=== PATIENT | male | born 1975 | race Caucasian/White ===

== ENCOUNTER 2016-09-05 18:47 | Emergency (ER) | payer MEDICAID ==
[2016-09-05] MEDS ORDERED: diphenhydrAMINE INJ 50 MG/ML VIAL IM STA (19:35)
[2016-09-05] MEDS ORDERED: KETOROLAC 60 MG/2 ML VIAL IM STA (19:35)
[2016-09-05] MEDS ORDERED: PROMETHAZINE 25 MG/1 ML VIAL IM STA (19:35)
[2016-09-05] MEDS ORDERED: diphenhydrAMINE INJ 50 MG/ML VIAL ONE (19:49)
[2016-09-05] MEDS ORDERED: KETOROLAC 60 MG/2 ML VIAL ONE (19:49)
[2016-09-05] MEDS ORDERED: PROMETHAZINE 25 MG/1 ML VIAL ONE (19:49)
== END 2016-09-05 21:01 | disposition home or self-care (01) ==
DX: G43.909 Migraine, unspecified, not intractable, without status migrainosus (principal); J45.909 Unspecified asthma, uncomplicated; F17.200 Nicotine dependence, unspecified, uncomplicated

== ENCOUNTER 2016-09-26 11:25 | Outpatient (CLI) | payer MEDICAID | END 2016-09-26 11:26 | disposition home or self-care (01) | DX: R07.0 Pain in throat (principal) ==

== ENCOUNTER 2016-11-22 13:54 | Outpatient (CLI) | payer MEDICAID ==
[2016-11-22 13:17] LABS: BASOPHILS # (AUTO) 0.1 10^3/uL (0.0-0.1); BASOPHILS % (AUTO) 1.5 %; EOSINOPHILS # (AUTO) 0.2 10^3/uL (0.0-0.7); EOSINOPHILS % (AUTO) 4.2 %; HCT - HEMATOCRIT 43.9 % (42.0-52.0); HGB - HEMOGLOBIN 15.2 g/dL (14.0-18.0); LYMPHOCYTES # (AUTO) 1.7 10^3/uL (1.5-3.5); LYMPHOCYTES % (AUTO) 36.1 %; MEAN CORPUSCULAR HGB CONC 34.6 g/dL (32.0-36.0); MEAN CORPUSCULAR VOLUME 98.2 fL (80.0-94.0); MEAN PLATELET VOLUME 7.4 fL (7.4-11.4); MONOCYTES # (AUTO) 0.5 10^3/uL (0.0-1.0); NEUTROPHILS # (AUTO) 2.2 10^3/uL (1.5-6.6); NEUTROPHILS % (AUTO) 48.2 %; RED BLOOD COUNT 4.47 10^6/uL (4.70-6.10); RED CELL DISTRIBUTION WIDTH 13.2 % (12.0-15.0); UNCORRECTED WHITE BLOOD COUNT 4.6 x10^3/uL; WHITE BLOOD COUNT 4.6 x10^3/uL (4.8-10.8)
[2016-11-22 13:37] LABS: ALBUMIN/GLOBULIN RATIO 1.6 (1.0-2.2); BILIRUBIN,TOTAL 0.9 mg/dL (0.2-1.0); BUN - BLOOD UREA NITROGEN 11 mg/dL (6-20); CALCIUM 9.2 mg/dL (8.5-10.3); CARBON DIOXIDE - CO2 29 mmol/L (21-32); CHLORIDE 105 mmol/L (101-111); CHOLESTEROL 224 mg/dL; GFR - MDRD 82 (>89); GLUCOSE 93 mg/dL (70-100); HDL CHOLESTEROL 56 mg/dL; LDL/HDL RATIO 2.6 (<3.6); POTASSIUM 3.9 mmol/L (3.5-5.0); SODIUM 140 mmol/L (135-145); TOTAL PROTEIN 6.9 g/dL (6.7-8.2); TRIGLYCERIDES 117 mg/dL; VLDL CHOLESTEROL 23 mg/dL
== END 2016-11-22 13:55 | disposition home or self-care (01) ==
LOC: LAB.N 13:54
PROVIDERS: ATTEND Family Medicine
DX: Z00.00 Encounter for general adult medical examination without abnormal findings (principal); F17.210 Nicotine dependence, cigarettes, uncomplicated
CPT/HCPCS: 36415; 80053; 80061; 85025

== ENCOUNTER 2016-12-13 12:22 | Emergency (ER) | payer MEDICAID, MEDICARE ==
[2016-12-13] MEDS ORDERED: ACETAMINOPHEN 325 MG TABLET PO STA (12:56)
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
[2016-12-13] MEDS ORDERED: ACETAMINOPHEN 325 MG TABLET PO ONE (13:01)
[2016-12-13] MEDS ORDERED: TETANUS/DIPHTHERIA/PERTUSSIS 0.5 ML SYRINGE IM ONE ×2 (13:20→13:24)
--- NOTE | 2016-12-13 13:33 | XRAY Preliminary Report ---
Exam: XR Ankle 3 View RT IMPRESSION: 1. Normal alignment without fracture or dislocation of the right ankle. 2. Asymmetric soft tissue swelling at the medial aspect of the ankle. [facility] SITE ID: [id number]
--- NOTE | 2016-12-13 13:33 | XRAY Preliminary Report ---
Exam: XR Tib/Fib RT IMPRESSION: Soft tissue swelling about the ankle. Otherwise normal. No underlying bone or joint abnor mality demonstrated. [facility] SITE ID: [id number]
--- NOTE | 2016-12-13 13:36 | XRAY Report ---
EXAM: RIGHT ANKLE RADIOGRAPHY EXAM DATE: 12/13/2016 01:00 PM. CLINICAL HISTORY: Pain and swelling s/p injury. COMPARISON: None. TECHNIQUE: 2 views. FINDINGS: Bones: Normal. No fractures or bone lesions. Joints: Normal. No effusion. No subluxations. The ankle mortise is normally aligned. Soft Tissues: Asymmetric soft tissue swelling seen at the medial aspect of the ankle. IMPRESSION: 1. Normal alignment without fracture or dislocation of the right ankle. 2. Asymmetric soft tissue swelling at the medial aspect of the ankle. [facility] Referring Provider Line: [phone] SITE ID: [id number]
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
[2016-12-13 13:39] VITALS: BP 113/71
== END 2016-12-13 13:39 | disposition home or self-care (01) ==
LOC: ED 12:22
DX: M79.604 Pain in right leg (principal); S97.01XA Crushing injury of right ankle, initial encounter; W22.8XXA Striking against or struck by other objects, initial encounter; Y93.89 Activity, other specified; Y92.009 Unspecified place in unspecified non-institutional (private) residence as the place of occurrence of the external cause; Z23 Encounter for immunization; F17.200 Nicotine dependence, unspecified, uncomplicated
CPT/HCPCS: 73590; 73610; 90471; 90715; 99283; A9270

== ENCOUNTER 2016-12-24 13:17 | Outpatient (CLI) | payer MEDICARE ==
--- NOTE | 2016-12-24 17:50 | XRAY Report ---
THREE-VIEW RIGHT ANKLE: 12/24/2016 HISTORY: Crushing injury. FINDINGS: There is no fracture, focus of destruction, or malalignment. The mortise is preserved. T he talar dome is within normal limits. IMPRESSION: NO ACUTE PROCESS. JOB #: [id number] EXT JOB #:[id number]
--- NOTE | 2016-12-25 07:54 | XRAY Report ---
TWO-VIEW RIGHT TIBIA/FIBULA: 12/24/2016 HISTORY: Pain. COMPARISON: 12/13/2016 FINDINGS: The osseous structures appear intact. There is no fracture, focus of destruction, or barrera lignment. The surrounding soft tissues are within normal limits. The proximal and distal joint spac es are preserved. IMPRESSION: NO ACUTE PROCESS. JOB #: [id number] EXT JOB #:[id number]
== END 2016-12-24 13:18 | disposition home or self-care (01) ==
LOC: DI.N 13:17
PROVIDERS: ATTEND Family Medicine
DX: M79.661 Pain in right lower leg (principal)

== ENCOUNTER 2017-05-13 17:36 | Emergency (ER) | payer MEDICAID, MEDICARE ==
[2017-05-13 18:12] LABS: BASOPHILS # (AUTO) 0.1 10^3/uL (0.0-0.1); BASOPHILS % (AUTO) 2.3 %; EOSINOPHILS # (AUTO) 0.2 10^3/uL (0.0-0.7); EOSINOPHILS % (AUTO) 3.6 %; HGB - HEMOGLOBIN 14.8 g/dL (14.0-18.0); LYMPHOCYTES # (AUTO) 2.1 10^3/uL (1.5-3.5); LYMPHOCYTES % (AUTO) 44.1 %; MEAN CORPUSCULAR HEMOGLOBIN 32.8 pg (27.0-31.0); MEAN CORPUSCULAR HGB CONC 34.4 g/dL (32.0-36.0); MEAN CORPUSCULAR VOLUME 95.4 fL (80.0-94.0); MEAN PLATELET VOLUME 6.9 fL (7.4-11.4); MONOCYTES # (AUTO) 0.5 10^3/uL (0.0-1.0); MONOCYTES % (AUTO) 11.3 %; NEUTROPHILS # (AUTO) 1.8 10^3/uL (1.5-6.6); NEUTROPHILS % (AUTO) 38.7 %; PLT - PLATELET COUNT 235 10^3/uL (130-450); RED CELL DISTRIBUTION WIDTH 13.1 % (12.0-15.0); WHITE BLOOD COUNT 4.7 x10^3/uL (4.8-10.8)
[2017-05-13 18:19] LABS: ALBUMIN 4.6 g/dL (3.2-5.5); ALBUMIN/GLOBULIN RATIO 1.8 (1.0-2.2); BILIRUBIN,TOTAL 0.5 mg/dL (0.2-1.0); CALCIUM 9.2 mg/dL (8.5-10.3); CREATININE 0.8 mg/dL (0.6-1.2); TOTAL PROTEIN 7.2 g/dL (6.7-8.2)
--- NOTE | 2017-05-13 18:36 | XRAY Report ---
EXAM: CHEST RADIOGRAPHY EXAM DATE: 05/13/2017 06:24 PM. CLINICAL HISTORY: Dyspnea, back pain. COMPARISON: None. TECHNIQUE: 2 views. FINDINGS: Lungs/Pleura: No focal opacities evident. No pleural effusion. No pneumothorax. Normal volumes. Mediastinum: Heart and mediastinal contours are unremarkable. Other: None. IMPRESSION: No acute intrathoracic plain film abnormality. [facility] Referring Provider Line: [phone] SITE ID: [id number]
[2017-05-13] MEDS ORDERED: LIDOCAINE VISCOUS 2% 15 ML UDC MM STA (18:49)
[2017-05-13] MEDS ORDERED: SUCRALFATE 1 GM/10 ML UDC PO STA (18:49)
[2017-05-13] MEDS ORDERED: MAG HYDROX/AL HYDROX/SIMETH 30 ML UDC PO STA (18:49)
--- NOTE | 2017-05-13 18:57 | ED Physician Documentation ---
History of Present Illness - Stated complaint Stated Complaint: SOA/BACK PAIN - Chief complaint Chief Complaint: Resp - History obtained from History obtained from: Patient - History of Present Illness Timing: How many days ago (3) Pain level max: 8 Pain level now: 8 Improved by: nothing Worsened by: moving - Additonal information Additional information: states epigastric, back pain for the past few days. No fevers. taking probiotics at home. had diarrhea recently, now resolved. Review of Systems Constitutional: denies: Fever, Chills Ears: denies: Ear pain Nose: denies: Rhinorrhea / runny nose, Congestion Throat: denies: Sore throat Cardiac: denies: Chest pain / pressure Respiratory: denies: Cough Skin: denies: Rash Musculoskeletal: denies: Neck pain, Back pain Neurologic: denies: Headache PD PAST MEDICAL HISTORY - Past Medical History Cardiovascular: None Respiratory: Asthma, Emphysema Neuro: None, Headache/migraine Endocrine/Autoimmune: None GI: None : None HEENT: None Psych: Depression, Post traumatic stress disorder Musculoskeletal: None Derm: None - Past Surgical History Past Surgical History: Yes - Present Medications Home Medications: Ambulatory Orders Medication Instructions Recorded Confirmed Divalproex Dr [Depakote Dr] 125 mg PO BID 12/13/16 12/13/16 Cyclobenzaprine [Flexeril] 10 mg PO TID PRN #20 tablet 05/13/17 - Allergies Allergies/Adverse Reactions: Allergies Allergy/AdvReac Type Severity Reaction Status Date / Time amoxicillin [Amoxicillin] Allergy Intermediate Rash Verified 05/13/17 17:38 codeine [Codeine] Allergy Intermediate Rash Verified 05/13/17 17:38 Penicillins Allergy Intermediate Rash Verified 05/13/17 17:38 indomethacin AdvReac Unknown Emesis Verified 05/13/17 17:38 gabapentin AdvReac loss of Verified 05/13/17 17:38 bladder control, numbness, tingling in hands and fee - Social History Does the pt smoke?: Yes Smoking Status: Current every day smoker Does the pt drink ETOH?: No Does the pt have substance abuse?: Yes - Immunizations Immunizations are current?: Yes - POLST Patient has POLST: No PD ED PE NORMAL - Vitals Vital signs reviewed: Yes - General General: Alert and oriented X 3, No acute distress, Well developed/nourished - HEENT HEENT: PERRL, Moist mucous membranes - Neck Neck: Supple, no meningeal sign - Cardiac Cardiac: RRR, Strong equal pulses - Respiratory Respiratory: No respiratory distress, Clear bilaterally - Abdomen Abdomen: Soft, Non distended, Other (Tender to palpation epigastric, left upper quadrant and right upper quadrant. Equivocal Florentino sign.) - Back Back: No CVA TTP, No spinal TTP, Other (Paraspinal muscle spasm present left low lumbar) - Derm Derm: Warm and dry - Extremities Extremities: No calf tenderness / cord - Neuro Neuro: Alert and oriented X 3 - Psych Psych: Normal mood, Normal affect Results - Vitals Vitals: Vital Signs - 24 hr 05/13/17 05/13/17 05/13/17 17:39 19:05 19:26 Temperature 36.4 C L Heart Rate 97 74 76 Respiratory 18 27 H 13 Rate Blood Pressure 165/91 H 135/96 H 135/96 H O2 Saturation 100 100 100 05/13/17 05/13/17 05/13/17 20:42 21:15 22:05 Temperature Heart Rate 66 61 52 L Respiratory 19 12 12 Rate Blood Pressure 131/89 H 136/94 H 136/88 H O2 Saturation 99 98 99 Oxygen O2 Source Room air - EKG (time done) 1749 Rate: Rate (enter#) (85) Rhythm: NSR [place]: Normal Intervals: Normal NE QRS: Normal Ischemia: Normal ST segments - Labs Labs: Laboratory Tests 05/13/17 05/13/17 05/13/17 17:54 17:54 17:54 WBC 4.7 L RBC 4.50 L Hgb 14.8 Hct 42.9 MCV 95.4 H MCH 32.8 H MCHC 34.4 RDW 13.1 Plt Count 235 MPV 6.9 L Neut # 1.8 Lymph # 2.1 Storey # 0.5 Eos # 0.2 Baso # 0.1 Absolute Nucleated RBC 0.00 Nucleated RBC % 0.0 D-Dimer < 200.0 L Sodium 141 Potassium 3.6 Chloride 102 Carbon Dioxide 31 Anion Gap 8.0 BUN 7 Creatinine 0.8 Estimated GFR (MDRD) 106 Glucose 87 Calcium 9.2 Total Bilirubin 0.5 AST 18 ALT 19 Alkaline Phosphatase 47 Total Protein 7.2 Albumin 4.6 Globulin 2.6 Albumin/Globulin Ratio 1.8 Lipase 27 - Rads (name of study) Right upper quadrant ultrasound Radiology: Prelim report reviewed, EMP read contemporaneously, See rad report ( Mild fatty liver) cxr Radiology: Prelim report reviewed, EMP read contemporaneously, See rad report ( No acute disease) PD MEDICAL DECISION MAKING - ED course Complexity details: reviewed results, re-evaluated patient, considered differential, d/w patient ED course: Patient is a 42-year-old male who presents to the emergency department with epigastric and back pain. No change in GI cocktail. No acute findings on right upper quadrant ultrasound. No acute laboratory test abnormalities. No acute chest x-ray abnormalities. No acute EKG abnormalities. Feels better after Toradol, possible muscular pain? Will have him follow-up with his PCP for further evaluation and care. Tolerating p.o. without difficulty here. Ambulating without difficulty. No pneumothorax. No aortic dissection. No PE. No acute coronary syndrome. Patient counseled regarding signs and symptoms for which I believe and urgent re-evaluation would be necessary. Patient with good understanding of and agreement to plan and is comfortable going home at this time This document was made in part using voice recognition software. While efforts are made to proofread this document, sound alike and grammatical errors may occur. Departure - Departure Disposition: 01 Home, Self Care Clinical Impression: Abdominal pain Qualifiers: Abdominal location: generalized Qualified Code(s): R10.84 - Generalized abdominal pain Back strain Qualifiers: Encounter type: initial encounter Qualified Code(s): S39.012A - Strain of muscle, fascia and tendon of lower back, initial encounter Condition: Good Instructions: ED Abdominal Pain Unkn Cause, ED Low Back Pain Injury Follow-Up: Teo Ley MD [Primary Care Provider] - Within 1 week Prescriptions: Cyclobenzaprine [Flexeril] 10 mg PO TID PRN #20 tablet PRN Reason: Spasms Comments: Return if you worsen. This should improve over the next few days. The cause of your symptoms is unclear tonight. Discharge Date/Time: 05/13/17 22:08
[2017-05-13] MEDS: PHENobarb/HYOSCY/ATROPINE/SCOP 5 ML SYRINGE PO STA ×2 (19:07)
--- NOTE | 2017-05-13 20:39 | Ultrasound Report ---
EXAM: ABDOMEN ULTRASOUND LIMITED, RUQ EXAM DATE: 05/13/2017 08:10 PM. CLINICAL HISTORY: RUQ pain. COMPARISON: None. TECHNIQUE: Real-time scanning was performed with static images obtained. FINDINGS: Liver: Mildly echogenic parenchyma. No masses. Normal overall size, 14.4 cm. Main portal vein flow: H epatopetal. Gallbladder: Normal. No stones, wall thickening, or sonographic Florentino's sign. Biliary System: CBD measures 6 mm. No intrahepatic or extrahepatic ductal dilatation. Other: Unremarkable visualized portions of liver and pancreas. IMPRESSION: Mild fatty liver. [facility] Referring Provider Line: [phone] SITE ID: [id number]
[2017-05-13] MEDS ORDERED: KETOROLAC 60 MG/2 ML VIAL IVP STA (20:47)
[2017-05-13 22:08] VITALS: BP 136/88
== END 2017-05-13 22:08 | disposition home or self-care (01) ==
LOC: ED 17:36
DX: R10.84 Generalized abdominal pain (principal); S39.012A Strain of muscle, fascia and tendon of lower back, initial encounter; X58.XXXA Exposure to other specified factors, initial encounter; F17.200 Nicotine dependence, unspecified, uncomplicated
CPT/HCPCS: 36415; 71046; 76705; 80053; 83690; 85025; 85379; 93005; 96374; 99284; A9270

== ENCOUNTER 2017-06-11 09:39 | Emergency (ER) | payer MEDICARE ==
[2017-06-11 09:46] VITALS: BP 137/84
--- NOTE | 2017-06-11 10:20 | ED Physician Documentation ---
PD HPI HEENT - Stated complaint Stated Complaint: TOOTH PX - Chief complaint Chief Complaint: Heent - History obtained from History obtained from: Patient, Family - History of Present Illness Timing - onset: How many days ago (4) Timing - duration: Days (4) Timing - details: Gradual onset, Still present Location: Tooth Improves: Medication Worsens: Everything Associated symptoms: Facial swelling, Headache Similar symptoms before: Has not had sx before Recently seen: Not recently seen - Additional information Additional information: 42-year-old male has developed some pain in the right upper tooth and the pain has become localized and the tooth is extremely sensitive to. He does have some swelling in his gums on that side and pain that radiates around his jaw and into his right ear. He has an appointment to see his dentist in 3 weeks. He is allergic to penicillin and amoxicillin. Review of Systems Constitutional: denies: Fever Eyes: denies: Decreased vision Ears: reports: Ear pain Nose: reports: Congestion Throat: reports: Dental pain / toothache Respiratory: reports: Cough GI: denies: Nausea, Vomiting : denies: Dysuria PD PAST MEDICAL HISTORY - Past Medical History Past Medical History: Yes Cardiovascular: None Respiratory: Asthma, Emphysema Neuro: None, Headache/migraine Endocrine/Autoimmune: None GI: None : None HEENT: None Psych: Depression, Post traumatic stress disorder Musculoskeletal: None Derm: None - Past Surgical History Past Surgical History: Yes - Present Medications Home Medications: Ambulatory Orders Medication Instructions Recorded Confirmed Divalproran St [Abdulaziz St] 125 mg PO BID 12/13/16 12/13/16 Cyclobenzaprine [Flexeril] 10 mg PO TID PRN #20 tablet 05/13/17 Clindamycin HCl [Clindamycin 150MG 150 mg PO QID #28 capsule 06/11/17 CAP] oxyCODONE/ACET 5/325 [Percocet 5 1 each PO Q4-6H PRN #12 tablet 06/11/17 mg/325 mg] - Allergies Allergies/Adverse Reactions: Allergies Allergy/AdvReac Type Severity Reaction Status Date / Time amoxicillin [Amoxicillin] Allergy Intermediate Rash Verified 06/11/17 09:46 codeine [Codeine] Allergy Intermediate Rash Verified 06/11/17 09:46 Penicillins Allergy Intermediate Rash Verified 06/11/17 09:46 indomethacin AdvReac Unknown Emesis Verified 06/11/17 09:46 gabapentin AdvReac loss of Verified 06/11/17 09:46 bladder control, numbness, tingling in hands and fee - Social History Does the pt smoke?: Yes Smoking Status: Current every day smoker Does the pt drink ETOH?: No Does the pt have substance abuse?: Yes - Immunizations Immunizations are current?: Yes - POLST Patient has POLST: No PD ED PE NORMAL - Vitals Vital signs reviewed: Yes (hypertensive ) - General General: Alert and oriented X 3, Well developed/nourished, Other (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 There is swelling to the gums over both of these teeth. The tooth itself does not appear cracked or decayed ) - Neck Neck: Supple, no meningeal sign, No bony TTP - Respiratory Respiratory: No respiratory distress - Derm Derm: Normal color, Warm and dry, No rash - Extremities Extremities: No deformity, No edema - Neuro Neuro: No motor deficit, No sensory deficit Eye Opening: Spontaneous Motor: Obeys Commands Verbal: Oriented GCS Score: 15 - Psych Psych: Normal mood, Normal affect PD ED PE EXPANDED - HEENT HEENT Visual: 1 - swelling, tenderness Results - Vitals Vitals: Vital Signs - 24 hr 06/11/17 09:41 Temperature 36.0 C L Heart Rate 100 Respiratory 18 Rate Blood Pressure 137/84 H O2 Saturation 99 Oxygen O2 Source Room air PD MEDICAL DECISION MAKING - ED course Complexity details: considered differential, d/w patient ED course: 42-year-old male with a dental abscess and dental pain. We will place him on some clindamycin and a short course of some pain medication. Departure - Departure Disposition: 01 Home, Self Care Clinical Impression: Dental abscess Condition: Stable Instructions: ED Abscess Dental Follow-Up: Teo Ley MD [Primary Care Provider] - Prescriptions: Clindamycin HCl [Clindamycin 150MG CAP] 150 mg PO QID #28 capsule oxyCODONE/ACET 5/325 [Percocet 5 mg/325 mg] 1 each PO Q4-6H PRN #12 tablet PRN Reason: Pain
== END 2017-06-11 10:27 | disposition home or self-care (01) ==
LOC: ED 09:39
DX: K04.7 Periapical abscess without sinus (principal); F17.200 Nicotine dependence, unspecified, uncomplicated; Z88.0 Allergy status to penicillin
CPT/HCPCS: 99283

== ENCOUNTER 2017-06-11 22:06 | Emergency (ER) | payer MEDICARE ==
--- NOTE | 2017-06-11 22:16 | ED Physician Documentation ---
PD HPI HEENT - Stated complaint Stated Complaint: MOUTH PX - Chief complaint Chief Complaint: Heent - History obtained from History obtained from: Patient - History of Present Illness Timing - onset: How many days ago (few) Timing - duration: Days Timing - details: Gradual onset, Still present Location: Tooth (right upper dental infection and pain, seen earlier in the ED and Rx CLinda and Percocet. He got Rx filled and got first dose about 4 pm. He is having increased pain and swelling this evening. Not much relief with one percocet. Concerned about the increased swelling and pain on right face as well. ) Improves: No: Medication Associated symptoms: Facial swelling. No: Fever Similar symptoms before: Has not had sx before Recently seen: Emergency Dept Review of Systems Constitutional: denies: Fever, Chills Throat: reports: Dental pain / toothache. denies: Sore throat, Swollen tonsils PD PAST MEDICAL HISTORY - Past Medical History Cardiovascular: None Respiratory: Asthma, Emphysema Neuro: None, Headache/migraine Endocrine/Autoimmune: None GI: None : None HEENT: None Psych: Depression, Post traumatic stress disorder Musculoskeletal: None Derm: None - Past Surgical History Past Surgical History: Yes - Present Medications Home Medications: Ambulatory Orders Medication Instructions Recorded Confirmed Divalproex Dr [Abdulaziz Dr] 125 mg PO BID 12/13/16 12/13/16 Cyclobenzaprine [Flexeril] 10 mg PO TID PRN #20 tablet 05/13/17 Clindamycin HCl [Clindamycin 150MG 150 mg PO QID #28 capsule 06/11/17 CAP] oxyCODONE/ACET 5/325 [Percocet 5 1 each PO Q4-6H PRN #12 tablet 06/11/17 mg/325 mg] - Allergies Allergies/Adverse Reactions: Allergies Allergy/AdvReac Type Severity Reaction Status Date / Time amoxicillin [Amoxicillin] Allergy Intermediate Rash Verified 06/11/17 22:12 codeine [Codeine] Allergy Intermediate Rash Verified 06/11/17 22:12 Penicillins Allergy Intermediate Rash Verified 06/11/17 22:12 indomethacin AdvReac Unknown Emesis Verified 06/11/17 22:12 gabapentin AdvReac loss of Verified 06/11/17 22:12 bladder control, numbness, tingling in hands and fee - Social History Does the pt smoke?: Yes Smoking Status: Current every day smoker Does the pt drink ETOH?: No Does the pt have substance abuse?: Yes - Immunizations Immunizations are current?: Yes - POLST Patient has POLST: No PD ED PE NORMAL - Vitals Vital signs reviewed: Yes - General General: Alert and oriented X 3, Well developed/nourished, Other (appears in pain) - HEENT HEENT: Ears normal, Pharynx benign. No: Dentition benign (multiple caries. Right upper tooth 4 with swelling of gum on buccal side. No drainage. There is some facial swelling right maxilla without feeling of abscess. ) - Neck Neck: Supple, no meningeal sign, Other (mild right anterior adenopathy. ) - Cardiac Cardiac: RRR, No murmur - Respiratory Respiratory: Clear bilaterally Results - Vitals Vitals: Vital Signs - 24 hr 06/11/17 22:09 Temperature 36.1 C L Heart Rate 95 Respiratory 15 Rate Blood Pressure 193/101 H O2 Saturation 100 Oxygen O2 Source Room air Procedures - Regional nerve block Nerve block site: Infraorbital Right / left: Right Nerve block anesthesia: Lidocaine 2%, Marcaine 0.5% Nerve block aftercare: Moderate Anesthesia PD MEDICAL DECISION MAKING - ED course Complexity details: re-evaluated patient (He is feeling improved after dental block, with still some pain on face and anterior neck (adenopathy and swelling outside range of the infraorbital nerve). The gum abscess lanced with some outflow of pus. ), considered differential, d/w patient Departure - Departure Disposition: 01 Home, Self Care Clinical Impression: Dental abscess, Pain, dental Condition: Stable Record reviewed to determine appropriate education?: Yes Instructions: ED Abscess Dental Comments: Continue current prescriptions. The dental block should last overnight into tomorrow. Hopefully will be feeling better with more time on the antibiotic and with the drainage coming from lancing the abscess. Recheck if still not improving well over the next couple of days. Follow-up with dentist at their earliest appointment. He could try calling them again to see if they have something sooner. At least one of your blood pressure readings in the ER today was elevated above the normal level. If you have diagnosed high blood pressure in the past, please be sure you are taking your BP medications and eating low salt diet. If you do not have know high BP, then being high today does not mean it is a snf issue. It might be reactively high to the situation that has you here. You should follow up with your primary care to have the blood pressure checked again in the next few days/week or so to see if it is persistently high. If so, then you may need medication or changes in diet/lifestyle to treat it.
[2017-06-11] MEDS ORDERED: oxyCOD/ACETAMIN 5 MG/325 MG TABLET PO STA (22:28)
[2017-06-11 23:02] VITALS: BP 122/86
== END 2017-06-11 23:03 | disposition home or self-care (01) ==
LOC: ED 22:06
DX: K04.7 Periapical abscess without sinus (principal); R03.0 Elevated blood-pressure reading, without diagnosis of hypertension; F17.200 Nicotine dependence, unspecified, uncomplicated
CPT/HCPCS: 64400; 99283; A9270; 41800

== ENCOUNTER 2018-03-05 12:48 | Emergency (ER) | payer MEDICAID, MEDICARE ==
[2018-03-05] MEDS ORDERED: IPRATROPIUM/ALBUTEROL 3 ML NEB INH STA (13:34)
[2018-03-05] MEDS ORDERED: predniSONE 20 MG TABLET PO STA (13:34)
[2018-03-05 13:40] LABS: BASOPHILS % (AUTO) 0.6 %; EOSINOPHILS # (AUTO) 0.2 10^3/uL (0.0-0.7); EOSINOPHILS % (AUTO) 3.3 %; HGB - HEMOGLOBIN 17.8 g/dL (14.0-18.0); LYMPHOCYTES # (AUTO) 2.3 10^3/uL (1.5-3.5); MEAN CORPUSCULAR HEMOGLOBIN 34.3 pg (27.0-31.0); MEAN CORPUSCULAR HGB CONC 34.9 g/dL (32.0-36.0); MEAN CORPUSCULAR VOLUME 98.4 fL (80.0-94.0); MONOCYTES # (AUTO) 0.7 10^3/uL (0.0-1.0); MONOCYTES % (AUTO) 11.1 %; NEUTROPHILS # (AUTO) 3.2 10^3/uL (1.5-6.6); PLT - PLATELET COUNT 274 10^3/uL (130-450); RED CELL DISTRIBUTION WIDTH 13.4 % (12.0-15.0); WHITE BLOOD COUNT 6.5 x10^3/uL (4.8-10.8)
--- NOTE | 2018-03-05 13:52 | ED Physician Documentation ---
PD HPI CHEST PAIN - Stated complaint Stated Complaint: SOA/CHEST PX - Chief complaint Chief Complaint: Cardiac - History obtained from History obtained from: Patient - History of Present Illness Timing - onset: How many weeks ago (several) Timing - onset during: Rest Timing - duration: Weeks Timing - details: Gradual onset Pain level max: 4 Pain level now: 3 Quality: Tightness Location: Left chest Radiation: Other (Nonradiating) Improved by: Rest Worsened by: Exertion Associated symptoms: Shortness of air, Feeling faint / dizzy. No: Diaphoresis, Nausea, Vomiting, General Weakness, Palpitations - Additional information Additional information: Patient is a 43-year-old male who presents to the emergency department with chest tightness for the past several weeks. States he is to use inhalers but does not for the past year or so. He does smoke approximately 1/2-3/4 of a pack per day. No recent travel, surgery. No leg swelling. No recent illnesses. Does have a cough, but this is chronic and unchanged. Review of Systems Constitutional: denies: Fever, Chills Cardiac: denies: Chest pain / pressure Respiratory: denies: Cough GI: denies: Nausea, Vomiting, Diarrhea Skin: denies: Rash Musculoskeletal: denies: Neck pain, Back pain Neurologic: denies: Focal weakness, Numbness, Headache PD PAST MEDICAL HISTORY - Past Medical History Past Medical History: Yes Cardiovascular: None Respiratory: Asthma, Pneumonia Neuro: Migraines Endocrine/Autoimmune: None GI: GERD, Ulcers, Other : None HEENT: None Psych: Depression, Post traumatic stress disorder Musculoskeletal: Fibromyalgia Derm: None Other Past Medical History: ibs - Past Surgical History Past Surgical History: Yes - Present Medications Home Medications: Ambulatory Orders Medication Instructions Recorded Confirmed Divalproex [Abd[address] St] 125 mg PO BID 12/13/16 12/13/16 Cyclobenzaprine [Flexeril] 10 mg PO TID PRN #20 tablet 05/13/17 Clindamycin HCl [Clindamycin 150MG 150 mg PO QID #28 capsule 06/11/17 CAP] oxyCODONE/ACET 5/325 [Percocet 5 1 each PO Q4-6H PRN #12 tablet 06/11/17 mg/325 mg] Albuterol Sulf [Ventolin Hfa 1 - 2 puffs INH Q4HR PRN #1 inhaler 03/05/18 Inhaler] predniSONE [Deltasone] 10 mg PO [id number] #42 tab 03/05/18 - Allergies Allergies/Adverse Reactions: Allergies Allergy/AdvReac Type Severity Reaction Status Date / Time amoxicillin [Amoxicillin] Allergy Intermediate Rash Verified 06/11/17 22:12 codeine [Codeine] Allergy Intermediate Rash Verified 06/11/17 22:12 Penicillins Allergy Intermediate Rash Verified 06/11/17 22:12 indomethacin AdvReac Unknown Emesis Verified 06/11/17 22:12 gabapentin AdvReac loss of Verified 06/11/17 22:12 bladder control, numbness, tingling in hands and fee - Social History Does the pt smoke?: Yes Smoking Status: Current every day smoker Does the pt drink ETOH?: Yes ETOH Use: Beer Does the pt have substance abuse?: Yes Substance Use and Type: Marijuana - Immunizations Immunizations are current?: Yes - POLST Patient has POLST: No PD ED PE NORMAL - Vitals Vital signs reviewed: Yes - General General: Alert and oriented X 3, No acute distress, Well developed/nourished - HEENT HEENT: PERRL, Moist mucous membranes - Neck Neck: Supple, no meningeal sign - Cardiac Cardiac: RRR, Strong equal pulses - Respiratory Respiratory: No respiratory distress, Other (decreased breath sounds B) - Abdomen Abdomen: Soft, Non tender, Non distended - Derm Derm: Warm and dry - Extremities Extremities: No edema, No calf tenderness / cord - Neuro Neuro: Alert and oriented X 3 - Psych Psych: Normal mood, Normal affect Results - Vitals Vitals: Vital Signs - 24 hr 03/05/18 03/05/18 03/05/18 13:04 13:54 14:28 Temperature 36.6 C Heart Rate 88 82 82 Respiratory 18 12 12 Rate Blood Pressure 126/91 H 134/89 H O2 Saturation 99 98 03/05/18 14:32 Temperature Heart Rate 94 Respiratory 16 Rate Blood Pressure 140/89 H O2 Saturation 99 Oxygen O2 Source Room air - EKG (time done) 1257 Rate: Rate (enter#) (100) Rhythm: Sinus tachycardia [place]: Normal Intervals: Normal [place] QRS: Normal Ischemia: ST elevation c/w repol - Labs Labs: Laboratory Tests 03/05/18 03/05/18 03/05/18 13:28 13:28 13:28 WBC 6.5 RBC 5.20 Hgb 17.8 Hct 51.2 MCV 98.4 H MCH 34.3 H MCHC 34.9 RDW 13.4 Plt Count 274 MPV 7.0 L Neut # (Auto) 3.2 Lymph # (Auto) 2.3 [place] # (Auto) 0.7 Eos # (Auto) 0.2 Baso # (Auto) 0.0 Absolute Nucleated RBC 0.01 Nucleated RBC % 0.1 Sodium 139 Potassium 4.2 Chloride 101 Carbon Dioxide 27 Anion Gap 11.0 BUN 12 Creatinine 0.9 Estimated GFR (MDRD) 92 Glucose 83 Calcium 9.7 Total Bilirubin 0.9 AST 54 H ALT 89 H Alkaline Phosphatase 61 Troponin I < 0.04 Total Protein 8.3 H Albumin 4.9 Globulin 3.4 Albumin/Globulin Ratio 1.4 Lipase 32 - Rads (name of study) cxr Radiology: Prelim report reviewed, EMP read contemporaneously, See rad report (No acute abnormality) PD MEDICAL DECISION MAKING - ED course Complexity details: reviewed results, re-evaluated patient, considered diffe rential (No ST elevation [place], no aortic dissection, no PE, no tension pneumothorax, no aortic aneurysm), d/w patient ED course: Patient is a 43-year-old male who presents to the emergency department what appears to be a COPD flare. He is well-appearing, nontoxic. Afebrile. No evidence of pulmonary embolus. Feels much better after steroids and nebulizer treatment. Will prescribe an inhaler for home and follow-up closely with his doctor. Patient counseled regarding signs and symptoms for which I believe and urgent re-evaluation would be necessary. Patient with good understanding of and agreement to plan and is comfortable going home at this time This document was made in part using voice recognition software. While efforts are made to proofread this document, sound alike and grammatical errors may occur. Departure - Departure Disposition: 01 Home, Self Care Clinical Impression: COPD (chronic obstructive pulmonary disease) Qualifiers: COPD type: COPD with acute exacerbation Qualified Code(s): J44.1 - Chronic obs tructive pulmonary disease with (acute) exacerbation Condition: Good Instructions: ED COPD Flare Follow-Up: your,doctor in 1 week [Other] Prescriptions: Albuterol Sulf [Ventolin Hfa Inhaler] 1 - 2 puffs INH Q4HR PRN #1 inhaler PRN Reason: Shortness Of Air/Wheezing predniSONE [Deltasone] 10 mg PO [id number] #42 tab Comments: Use the inhaler as prescribed. This should improve as your lungs continue to improve. Return if you worsen. Your heart tests are normal today. You should try to quit smoking. Discharge Date/Time: 03/05/18 14:38
[2018-03-05 13:55] LABS: ALBUMIN 4.9 g/dL (3.2-5.5); ALBUMIN/GLOBULIN RATIO 1.4 (1.0-2.2); BILIRUBIN,TOTAL 0.9 mg/dL (0.2-1.0); CALCIUM 9.7 mg/dL (8.5-10.3); CREATININE 0.9 mg/dL (0.6-1.2); TOTAL PROTEIN 8.3 g/dL (6.7-8.2)
--- NOTE | 2018-03-05 13:59 | XRAY Report ---
Reason: Chest Pain Procedure Date: 03/05/2018 Accession Number: [id number] / [id number] Procedure: XR - Chest 1 View X-Ray CPT Code: 54478 FULL RESULT: EXAM: CHEST RADIOGRAPHY EXAM DATE: 03/05/2018 01:53 PM. CLINICAL HISTORY: Chest Pain. COMPARISON: 05/13/2017. TECHNIQUE: 1 view. FINDINGS: Lungs/Pleura: No focal opacities evident. No pleural effusion. No pneumothorax. Mediastinum: Within exam limitations, the cardiomediastinal contour is normal. Other: No acute findings compared with prior IMPRESSION: Clear lungs. No acute findings. RADIA
[2018-03-05 14:33] VITALS: BP 140/89
== END 2018-03-05 14:38 | disposition home or self-care (01) ==
LOC: ED 12:48
DX: J44.1 Chronic obstructive pulmonary disease with (acute) exacerbation (principal); R00.0 Tachycardia, unspecified; M79.7 Fibromyalgia; F17.200 Nicotine dependence, unspecified, uncomplicated
CPT/HCPCS: 36415; 71045; 80053; 83690; 84484; 85025; 93005; 94640; 99283; 99284; J7512

== ENCOUNTER 2018-07-16 12:40 | Emergency (ER) | payer MEDICAID, MEDICARE ==
[2018-07-16 12:50] VITALS: BP 127/83
[2018-07-16] MEDS ORDERED: oxyCODONE 5 MG TABLET PO STA (13:54)
[2018-07-16] MEDS ORDERED: CYCLOBENZAPRINE 10 MG TABLET PO STA (13:54)
--- NOTE | 2018-07-16 14:00 | ED Physician Documentation ---
PD HPI BACK PAIN - Stated complaint Stated Complaint: BACK PX - Chief complaint Chief Complaint: Back Pain - History obtained from History obtained from: Patient - History of Present Illness Timing - onset: Other (This is a 43-year-old gentleman with fibromyalgia, sciatica and chronic pain. He is not currently in pain management. 2 weeks ago he was coughing a lot and developed pain and spasm between the shoulder blades radiating down to the lumbar spine. There is no new weakness, numbness, tingling, saddle anesthesia, fevers, but it does hurt to have a bowel movement from the straining. Pain is worse with bending and twisting. He is tried aspirin and heat without relief.) Review of Systems Constitutional: denies: Fever, Chills Cardiac: denies: Chest pain / pressure, Palpitations Respiratory: reports: Cough (intermittent). denies: Dyspnea GI: denies: Abdominal Pain PD PAST MEDICAL HISTORY - Past Medical History Cardiovascular: None Respiratory: Asthma, Pneumonia Neuro: Migraines Endocrine/Autoimmune: None GI: GERD, Ulcers, Other : None HEENT: None Psych: Depression, Post traumatic stress disorder Musculoskeletal: Fibromyalgia Derm: None - Past Surgical History Past Surgical History: Yes - Present Medications Home Medications: Ambulatory Orders Medication Instructions Recorded Confirmed Cyclobenzaprine [Flexeril] 10 mg PO TID PRN #20 tablet 07/16/18 Oxycodone HCl/Acetaminophen 1 - 2 each PO Q6H PRN #14 tablet 07/16/18 [Percocet 5-325 mg Tablet] - Allergies Allergies/Adverse Reactions: Allergies Allergy/AdvReac Type Severity Reaction Status Date / Time amoxicillin [Amoxicillin] Allergy Intermediate Rash Verified 07/16/18 12:50 codeine [Codeine] Allergy Intermediate Rash Verified 07/16/18 12:50 Penicillins Allergy Intermediate Rash Verified 07/16/18 12:50 indomethacin AdvReac Unknown Emesis Verified 07/16/18 12:50 gabapentin AdvReac loss of Verified 07/16/18 12:50 bladder control, numbness, tingling in hands and fee - Social History Does the pt smoke?: Yes Smoking Status: Current every day smoker Does the pt drink ETOH?: Yes Does the pt have substance abuse?: Yes - Immunizations Immunizations are current?: Yes - POLST Patient has POLST: No PD ED PE NORMAL - Vitals Vital signs reviewed: Yes - General General: Alert and oriented X 3, No acute distress - Neck Neck: Supple, no meningeal sign, No bony TTP - Cardiac Cardiac: RRR, No murmur - Respiratory Respiratory: No respiratory distress, Clear bilaterally - Abdomen Abdomen: Normal bowel sounds, Soft, Non tender - Back Back: No spinal TTP, Other (Diffuse TTP parathoracic muscles) - Derm Derm: Normal color, Warm and dry - Extremities Extremities: No edema, No calf tenderness / cord, Other (The patient has equal and normal Achilles and patellar reflexes bilaterally. Normal sensation in all areas of the legs. Patient denies saddle anesthesia. Normal strength in flexion-extension at the ankles, knees, and flexion of the hips.) - Neuro Neuro: Alert and oriented X 3, Normal speech - Psych Psych: Normal mood, Normal affect Results - Vitals Vitals: Vital Signs - 24 hr 07/16/18 12:49 Temperature 36.8 C Heart Rate 111 H Respiratory 18 Rate Blood Pressure 127/83 H O2 Saturation 100 Oxygen O2 Source Room air PD MEDICAL DECISION MAKING - ED course ED course: This patient has seemingly uncomplicated musculoskeletal back pain. The patient has no "red flags." Specifically denies IV drug use, fevers, incontinence, saddle anesthesia. Spinal epidural abscess was considered, given that the patient has no fever, is not diabetic, has no spinal tenderness, does not use IV drugs, and has no bilateral neurologic symptoms, the diagnosis of spinal epidural abscess is considered exceedingly unlikely. Departure - Departure Disposition: 01 Home, Self Care Clinical Impression: Back strain Qualifiers: Encounter type: initial encounter Qualified Code(s): S39.012A - Strain of muscle, fascia and tendon of lower back, initial encounter Condition: Good Record reviewed to determine appropriate education?: Yes Instructions: ED Spasm Back No Trauma Prescriptions: Cyclobenzaprine [Flexeril] 10 mg PO TID PRN #20 tablet PRN Reason: Spasms Oxycodone HCl/Acetaminophen [Percocet 5-325 mg Tablet] 1 - 2 each PO Q6H PRN #14 tablet PRN Reason: pain Comments: Call your doctor to arrange a follow-up appointment, make the next available appointment. In the interim, return anytime if worse or if new symptoms devel op.
== END 2018-07-16 14:05 | disposition home or self-care (01) ==
LOC: ED 12:40
DX: S39.012A Strain of muscle, fascia and tendon of lower back, initial encounter (principal); F17.200 Nicotine dependence, unspecified, uncomplicated
CPT/HCPCS: 99282; 99283; A9270

== ENCOUNTER 2019-05-20 20:16 | Emergency (ER) | payer MEDICARE ==
--- NOTE | 2019-05-20 20:26 | ED Physician Documentation ---
PD HPI DYSPNEA - Stated complaint Stated Complaint: SOA - History obtained from History obtained from: Patient - History of Present Illness Timing - onset: Enter time (19:00), Today Timing - onset during: Rest Timing - details: Abrupt onset Pain level now: 9 Improved by: Rest Worsened by: Exertion, Other (movement) Associated symptoms: Chest pain / discomfort. No: Fever, Cough, Wheezing, Bilateral edema, Unilateral edema Recently seen: Not recently seen - Additional information Additional information: mutiple c/o. c/o dyspnea and left-sided chest pain. Dyspnea x 7 PM tonight while at rest playing cards. Also c/o low back pain, predominantly left-sided, radiating down both legs. Also c/o paresthesias of both feet, fingers of both hands, and around mouth. 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 He has not established with a new PMD as of yet. Review of Systems Constitutional: reports: Myalgias. denies: Fever, Chills, Sweats Cardiac: reports: Chest pain / pressure. denies: Palpitations, Pedal edema, Calf pain Respiratory: reports: Dyspnea. denies: Cough, Hemoptysis, Wheezing GI: reports: Reviewed and negative : denies: Dysuria, Frequency Skin: denies: Rash Musculoskeletal: reports: Back pain. denies: Neck pain Neurologic: reports: Numbness (paresthesias both hands, feet, around mouth). denies: Generalized weakness, Focal weakness, Headache PD PAST MEDICAL HISTORY - Past Medical History Cardiovascular: None Respiratory: Asthma, Pneumonia Neuro: Migraines Endocrine/Autoimmune: None GI: GERD, Ulcers, Other : None HEENT: None Psych: Depression, Post traumatic stress disorder Musculoskeletal: Fibromyalgia Derm: None - Past Surgical History Past Surgical History: Yes - Present Medications Home Medications: Ambulatory Orders Medication Instructions Recorded Confirmed Cyclobenzaprine [Flexeril] 10 mg PO TID PRN #20 tablet 07/16/18 Oxycodone HCl/Acetaminophen 1 - 2 each PO Q6H PRN #14 tablet 07/16/18 [Percocet 5-325 mg Tablet] Albuterol Sulf [Ventolin Hfa 1 - 2 puffs INH Q4HR PRN #1 inhaler 01/09/20 Inhaler] LORazepam [Lorazepam] 0.5 mg PO TID PRN #14 tablet 05/20/19 oxyCODONE [Roxicodone] 5 - 10 mg PO Q6H PRN #15 tablet 05/20/19 predniSONE [Prednisone] 40 mg PO DAILY 3 Days #6 tablet 05/20/19 - Allergies Allergies/Adverse Reactions: Allergies Allergy/AdvReac Type Severity Reaction Status Date / Time amoxicillin [Amoxicillin] Allergy Intermediate Rash Verified 05/20/19 20:33 codeine [Codeine] Allergy Intermediate Rash Verified 05/20/19 20:33 Penicillins Allergy Intermediate Rash Verified 05/20/19 20:33 indomethacin AdvReac Unknown Emesis Verified 05/20/19 20:33 gabapentin AdvReac loss of Verified 05/20/19 20:33 bladder control, numbness, tingling in hands and fee - Social History Does the pt smoke?: Yes Smoking Status: Current every day smoker Does the pt drink ETOH?: Yes Does the pt have substance abuse?: Yes - Immunizations Immunizations are current?: Yes - POLST Patient has POLST: No PD ED PE NORMAL - Vitals Vital signs reviewed: Yes - General General: Alert and oriented X 3, No acute distress (NAD at rest, moves slowly due to LBP), Well developed/nourished - HEENT HEENT: PERRL, EOMI, Other (pasty/tacky mucous membranes) - Neck Neck: Supple, no meningeal sign - Cardiac Cardiac: RRR, No murmur, No gallop, No rub - Respiratory Respiratory: No respiratory distress, Clear bilaterally - Abdomen Abdomen: Soft, Non tender - Back Back: No CVA TTP - Derm Derm: Normal color, Warm and dry, No rash - Extremities Extremities: No edema - Neuro Neuro: Alert and oriented X 3, clinical outcomes manager 2-12 intact, No motor deficit, No sensory deficit, Normal speech Results - Vitals Vitals: Vital Signs - 24 hr 05/20/19 05/20/19 05/20/19 20:20 20:36 21:15 Temperature 37.0 C Heart Rate 100 90 Respiratory 18 10 L Rate Blood Pressure 158/103 H Blood Pressure 163/101 H [Right] O2 Saturation 100 05/20/19 21:45 Temperature Heart Rate 112 H Respiratory 21 Rate Blood Pressure 155/91 H Blood Pressure [Right] O2 Saturation 98 Oxygen O2 Source Room air - EKG (time done) No standard instances Rate: Rate (enter#) (96) Rhythm: NSR, LAE [place]: Normal Intervals: Normal [place] QRS: LVH Ischemia: ST elevation c/w repol Compare to prior EKG: Unchanged from prior EKG (no significant change compared to 03/05/18) - Labs Labs: Laboratory Tests 05/20/19 05/20/19 05/20/19 20:25 20:25 20:29 WBC 6.9 RBC 4.62 L Hgb 15.9 Hct 45.5 MCV 98.5 H MCH 34.4 H MCHC 34.9 RDW 12.8 Plt Count 219 MPV 8.7 Neut # (Auto) 4.4 Lymph # (Auto) 1.5 [place] # (Auto) 0.7 Eos # (Auto) 0.1 Baso # (Auto) 0.1 Absolute Nucleated RBC 0.00 Nucleated RBC % 0.0 D-Dimer < 200.0 L Sodium 136 Potassium 3.6 Chloride 98 L Carbon Dioxide 26 Anion Gap 12.0 BUN 13 Creatinine 1.1 Estimated GFR (MDRD) 73 L Glucose 127 H Calcium 9.8 Total Bilirubin 0.9 AST 60 H ALT 69 H Alkaline Phosphatase 49 Troponin I High Sens Total Protein 7.8 Albumin 4.8 Globulin 3.0 Albumin/Globulin Ratio 1.6 Lipase 35 05/20/19 20:29 WBC RBC Hgb Hct MCV MCH MCHC RDW Plt Count MPV Neut # (Auto) Lymph # (Auto) [place] # (Auto) Eos # (Auto) Baso # (Auto) Absolute Nucleated RBC Nucleated RBC % D-Dimer Sodium Potassium Chloride Carbon Dioxide Anion Gap BUN Creatinine Estimated GFR (MDRD) Glucose Calcium Total Bilirubin AST ALT Alkaline Phosphatase Troponin I High Sens 2.9 Total Protein Albumin Globulin Albumin/Globulin Ratio Lipase - Rads (name of study) chest xray Radiology: Prelim report reviewed, See rad report PD MEDICAL DECISION MAKING - ED course Complexity details: reviewed old records, reviewed results, re-evaluated patient, considered differential, d/w patient ED course: On reevaluation, after tests resulted and medications given (IV fluids, ativan, duoneb, and decadron), patient reports feeling much better. Still has LBP and we discussed medications for this and will try oxycodone (dose now and rx). I instructed patient to seek outpatient f/u and this will require that he establish with an outpatient medical provider. Departure - Departure Disposition: 01 Home, Self Care Clinical Impression: Sciatica, Chest pain, Dyspnea Condition: Good Instructions: ED Chest Pain Atypical Unkn Cause, ED Dyspnea Shortness of Breath, ED Sciatica Prescriptions: Albuterol Sulf [Ventolin Hfa Inhaler] 1 - 2 puffs INH Q4HR PRN #1 inhaler PRN Reason: Shortness Of Air/Wheezing LORazepam [Lorazepam] 0.5 mg PO TID PRN #14 tablet PRN Reason: Anxiety oxyCODONE [Roxicodone] 5 - 10 mg PO Q6H PRN #15 tablet PRN Reason: Pain predniSONE [Prednisone] 40 mg PO DAILY 3 Days #6 tablet Discharge Date/Time: 05/20/19 21:53
[2019-05-20 20:38] LABS: BASOPHILS # (AUTO) 0.1 10^3/uL (0.0-0.1); BASOPHILS % (AUTO) 1.6 %; EOSINOPHILS # (AUTO) 0.1 10^3/uL (0.0-0.7); EOSINOPHILS % (AUTO) 1.7 %; HGB - HEMOGLOBIN 15.9 g/dL (14.0-18.0); LYMPHOCYTES # (AUTO) 1.5 10^3/uL (1.5-3.5); LYMPHOCYTES % (AUTO) 21.5 %; MEAN CORPUSCULAR HEMOGLOBIN 34.4 pg (27.0-31.0); MEAN CORPUSCULAR HGB CONC 34.9 g/dL (32.0-36.0); MEAN CORPUSCULAR VOLUME 98.5 fL (80.0-94.0); MEAN PLATELET VOLUME 8.7 fL (7.4-11.4); MONOCYTES # (AUTO) 0.7 10^3/uL (0.0-1.0); MONOCYTES % (AUTO) 10.6 %; NEUTROPHILS # (AUTO) 4.4 10^3/uL (1.5-6.6); NEUTROPHILS % (AUTO) 64.3 %; PLT - PLATELET COUNT 219 10^3/uL (130-450); RED BLOOD COUNT 4.62 10^6/uL (4.70-6.10); RED CELL DISTRIBUTION WIDTH 12.8 % (12.0-15.0); WHITE BLOOD COUNT 6.9 x10^3/uL (4.8-10.8)
[2019-05-20 20:48] LABS: ALBUMIN 4.8 g/dL (3.2-5.5); ALBUMIN/GLOBULIN RATIO 1.6 (1.0-2.2); BILIRUBIN,TOTAL 0.9 mg/dL (0.2-1.0); CALCIUM 9.8 mg/dL (8.5-10.3); CREATININE 1.1 mg/dL (0.6-1.2); TOTAL PROTEIN 7.8 g/dL (6.7-8.2)
[2019-05-20] MEDS: DEXAMETHASONE 10 MG/ML VIAL IVP STA (20:58)
[2019-05-20] MEDS: SODIUM CHLORIDE 0.9% 1,000 ML IV STA (20:58)
[2019-05-20] MEDS: LORazepam 2 MG/ML VIAL IVP STA (21:00)
[2019-05-20] MEDS: IPRATROPIUM/ALBUTEROL 3 ML NEB INH STA (21:15)
--- NOTE | 2019-05-20 21:39 | XRAY Report ---
Reason: chest pain SOA Procedure Date: 05/20/2019 Accession Number: [id number] / [id number] Procedure: XR - Chest 1 View X-Ray CPT Code: 11131 Final Report FULL RESULT: EXAM: CHEST RADIOGRAPHY EXAM DATE: 05/20/2019 09:16 PM. CLINICAL HISTORY: Chest pain SOA. COMPARISON: CHEST 1 VIEW 03/05/2018 1:41 PM. TECHNIQUE: 1 view. FINDINGS: Lungs/Pleura: Mildly hyperexpanded, but clear. No effusion or pneumothorax. Mediastinum: Within exam limitations, the cardiomediastinal contour is normal. Upper lobe vessels not distended. Other: None. IMPRESSION: No acute disease. RADIA
[2019-05-20 21:46] VITALS: BP 155/91
[2019-05-20] MEDS: oxyCODONE 5 MG TABLET PO STA (21:46)
== END 2019-05-20 21:53 | disposition home or self-care (01) ==
LOC: ED 20:16
DX: M54.42 Lumbago with sciatica, left side (principal); M54.41 Lumbago with sciatica, right side; R07.9 Chest pain, unspecified; J45.909 Unspecified asthma, uncomplicated; F17.200 Nicotine dependence, unspecified, uncomplicated; Z79.899 Other long term (current) drug therapy; Z87.01 Personal history of pneumonia (recurrent)
CPT/HCPCS: 36415; 71045; 80053; 83690; 84484; 85025; 85379; 93005; 94640; 94664; 96361; 96374; 96375; 99284

== ENCOUNTER 2020-07-13 21:25 | Outpatient (CLI) | payer MEDICARE | END 2020-07-13 21:26 | disposition critical access hospital (66) | LOC: EMS 21:25 | PROVIDERS: ATTEND Emergency Medicine | DX: R55 Syncope and collapse (principal) | CPT/HCPCS: A0425; A0429 ==

== ENCOUNTER 2020-07-13 21:37 | Observation (INO) | payer MEDICARE ==
[2020-07-13 22:12] LABS: BASOPHILS # (AUTO) 0.1 10^3/uL (0.0-0.1); BASOPHILS % (AUTO) 1.9 %; EOSINOPHILS # (AUTO) 0.3 10^3/uL (0.0-0.7); EOSINOPHILS % (AUTO) 4.5 %; HCT - HEMATOCRIT 45.8 % (42.0-52.0); HGB - HEMOGLOBIN 15.9 g/dL (14.0-18.0); LYMPHOCYTES # (AUTO) 2.5 10^3/uL (1.5-3.5); LYMPHOCYTES % (AUTO) 36.2 %; MEAN CORPUSCULAR HEMOGLOBIN 34.6 pg (27.0-31.0); MEAN CORPUSCULAR HGB CONC 34.7 g/dL (32.0-36.0); MEAN CORPUSCULAR VOLUME 99.8 fL (80.0-94.0); MEAN PLATELET VOLUME 8.3 fL (7.4-11.4); MONOCYTES # (AUTO) 0.7 10^3/uL (0.0-1.0); MONOCYTES % (AUTO) 9.8 %; NEUTROPHILS # (AUTO) 3.2 10^3/uL (1.5-6.6); NEUTROPHILS % (AUTO) 47.5 %; PLT - PLATELET COUNT 247 10^3/uL (130-450); RED BLOOD COUNT 4.59 10^6/uL (4.70-6.10); RED CELL DISTRIBUTION WIDTH 12.8 % (12.0-15.0); WHITE BLOOD COUNT 6.8 x10^3/uL (4.8-10.8)
[2020-07-13 22:27] LABS: ALBUMIN 4.3 g/dL (3.2-5.5); ALBUMIN/GLOBULIN RATIO 1.3 (1.0-2.2); BILIRUBIN,TOTAL 0.5 mg/dL (0.2-1.0); CALCIUM 9.4 mg/dL (8.5-10.3); POTASSIUM 3.5 mmol/L (3.5-5.0); TOTAL PROTEIN 7.5 g/dL (6.7-8.2)
--- NOTE | 2020-07-13 22:36 | ED Physician Documentation ---
History of Present Illness - Stated complaint Stated Complaint: SYNCOPE - Chief complaint Chief Complaint: Neuro - History obtained from History obtained from: Patient - Additonal information Additional information: 45-year-old man with history of COPD, fibromyalgia, daily smoker presents with syncopal episode about 1/2-hour prior to arrival with preceding nausea and lightheadedness. Patient states that he has had multiple syncopal episodes in the past year, most recent in March that he has not had investigated. Of note, the patient states that he was drinking alcohol between noon and 4 PM. Denies chest pain, shortness of breath, fever chills, ear pain or sensation of vertigo.No focal neurological deficits. Review of Systems Constitutional: denies: Fever, Chills Cardiac: denies: Chest pain / pressure Respiratory: denies: Dyspnea Neurologic: reports: Generalized weakness, Syncope. denies: Altered mental status, Headache, Head injury PD PAST MEDICAL HISTORY - Past Medical History Cardiovascular: None Respiratory: Asthma, Pneumonia Neuro: Migraines Endocrine/Autoimmune: None GI: GERD, Ulcers, Other : None HEENT: None Psych: Depression, Post traumatic stress disorder Musculoskeletal: Fibromyalgia Derm: None - Past Surgical History Past Surgical History: Yes - Present Medications Home Medications: Ambulatory Orders Medication Instructions Recorded Confirmed Cyclobenzaprine [Flexeril] 10 mg PO TID PRN #20 tablet 07/16/18 07/13/20 Oxycodone HCl/Acetaminophen 1 - 2 each PO Q6H PRN #14 tablet 07/16/18 07/13/20 [Percocet 5-325 mg Tablet] Albuterol Sulf [Ventolin Hfa 1 - 2 puffs INH Q4HR PRN #1 inhaler 05/20/19 07/13/20 Inhaler] LORazepam [Lorazepam] 0.5 mg PO TID PRN #14 tablet 05/20/19 07/13/20 oxyCODONE [Roxicodone] 5 - 10 mg PO Q6H PRN #15 tablet 05/20/19 07/13/20 predniSONE [Prednisone] 40 mg PO DAILY 3 Days #6 tablet 05/20/19 07/13/20 - Allergies Allergies/Adverse Reactions: Allergies Allergy/AdvReac Type Severity Reaction Status Date / Time amoxicillin [Amoxicillin] Allergy Intermediate Rash Verified 07/13/20 21:43 codeine [Codeine] Allergy Intermediate Rash Verified 07/13/20 21:43 Penicillins Allergy Intermediate Rash Verified 07/13/20 21:43 indomethacin AdvReac Unknown Emesis Verified 07/13/20 21:43 gabapentin AdvReac loss of Verified 07/13/20 21:43 bladder control, numbness, tingling in hands and fee - Social History Does the pt smoke?: Yes Smoking Status: Current every day smoker Does the pt drink ETOH?: Yes Does the pt have substance abuse?: Yes - Immunizations Immunizations are current?: Yes - POLST Patient has POLST: No PD ED PE NORMAL - Vitals Vital signs reviewed: Yes - General General: Alert and oriented X 3, No acute distress, Well developed/nourished - HEENT HEENT: Atraumatic, PERRL, EOMI - Neck Neck: Supple, no meningeal sign - Cardiac Cardiac: RRR - Respiratory Respiratory: No respiratory distress, Clear bilaterally - Abdomen Abdomen: Non tender, Non distended - Back Back: No spinal TTP - Derm Derm: Normal color - Extremities Extremities: No deformity, No tenderness to palpate, Normal ROM s pain - Neuro Neuro: Alert and oriented X 3, sports director 2-12 intact, No motor deficit, No sensory deficit - Psych Psych: Normal mood, Normal affect Results - Vitals Vitals: Vital Signs - 24 hr 07/13/20 07/13/20 07/13/20 21:44 21:47 23:00 Temperature 36.7 C 36.7 C 36.7 C Heart Rate 98 85 80 Respiratory 19 18 20 Rate Blood Pressure 143/94 H 121/97 H 124/80 O2 Saturation 100 100 96 Oxygen O2 Source Room air - EKG (time done) 2155 Rate: Rate (enter#) (82) Rhythm: NSR Gates: Normal Intervals: Normal PA QRS: Normal Ischemia: Normal ST segments - Labs Labs: Laboratory Tests 07/13/20 07/13/20 07/13/20 22:04 22:04 22:04 WBC 6.8 RBC 4.59 L Hgb 15.9 Hct 45.8 MCV 99.8 H MCH 34.6 H MCHC 34.7 RDW 12.8 Plt Count 247 MPV 8.3 Neut # (Auto) 3.2 Lymph # (Auto) 2.5 [place] # (Auto) 0.7 Eos # (Auto) 0.3 Baso # (Auto) 0.1 Absolute Nucleated RBC 0.00 Nucleated RBC % 0.0 Sodium 143 Potassium 3.5 Chloride 101 Carbon Dioxide 23 Anion Gap 19.0 H BUN 9 Creatinine 1.0 Estimated GFR (MDRD) 81 L Glucose 78 Calcium 9.4 Total Bilirubin 0.5 AST 23 ALT 25 Alkaline Phosphatase 51 Troponin I High Sens 3.1 Total Protein 7.5 Albumin 4.3 Globulin 3.2 Albumin/Globulin Ratio 1.3 Lipase 33 Ethyl Alcohol 07/13/20 22:04 WBC RBC Hgb Hct MCV MCH MCHC RDW Plt Count MPV Neut # (Auto) Lymph # (Auto) [place] # (Auto) Eos # (Auto) Baso # (Auto) Absolute Nucleated RBC Nucleated RBC % Sodium Potassium Chloride Carbon Dioxide Anion Gap BUN Creatinine Estimated GFR (MDRD) Glucose Calcium Total Bilirubin AST ALT Alkaline Phosphatase Troponin I High Sens Total Protein Albumin Globulin Albumin/Globulin Ratio Lipase Ethyl Alcohol 296.1 PD MEDICAL DECISION MAKING - ED course ED course: 45-year-old man presented with syncopal episode this past evening. He has not had an echocardiogram or any cardiac work-up in the past. He does not see doctors regularly. Discussed with patient and with Dr. Lawson and he will be admitted to observation for syncope work-up. Departure - Departure Disposition: ED Place in Observation Clinical Impression: Syncope, Alcohol intoxication Discharge Date/Time: 07/14/20 00:53
[2020-07-13] MEDS ORDERED: SODIUM CHLORIDE FLUSH 0.9% 10 ML SYRINGE IVP PRN (23:27)
--- NOTE | 2020-07-13 23:32 | HISTORY & PHYSICAL EXAMINATION ---
Chief Complaint - Chief Complaint Chief Complaint: syncope History of Present Illness - Admitted From Admitted From:: [facility] ED - History Obtained From Records Reviewed: yes History obtained from: patient - History of Present Illness HPI Comment/Other: Patient is a 45-year-old male with medical history significant for asthma, COPD, fibromyalgia, migraines, sciatica who presented to the ED after a syncopal episode. This happened around 7 PM today. He has chronic pain. It appears today it was quite significant. The pain seems to radiate down his back to the coccyx. He does not tolerate NSAIDs or opiates for his pain. He also does not tolerate Lyrica or gabapentin for fibromyalgia. As a result he uses alcohol to cope with his pain and in an attempt to sleep at night. He typically drinks 9 cans of beer daily. Today he drank 3 shots of vodka and about 3 cans of beer around 4 PM before the syncopal episode at 7 PM. He denies hitting his head. He fell in the bedroom. His heard him fall and came to his aid immediately. He explains that he has been feeling dizzy and in the morning before this. It has been a couple of years since he last had a syncopal episode. He has not seen a primary care physician in about 3 years. He reports always being nauseous and dry heaving today. He denied chest pain, fever or chills. He reports frequent dyspnea episodes. In the ED was largely unremarkable. His blood alcohol level was 291. He was presented for admission for further observation and evaluation for concern that his syncopal episode could be due to a cardiac cause. History - Past Medical History Cardiovascular: reports: None Respiratory: reports: Asthma Neuro: reports: Migraines Endocrine/Autoimmune: reports: None GI: reports: GERD, Ulcers, Other : reports: None HEENT: reports: None Psych: reports: Depression, Post traumatic stress disorder Musculoskeletal: reports: Fibromyalgia, Other (sciatica) Derm: reports: None MRSA Hx?: No - Past Surgical History /DISPUTE SPECIALIST: reports: Other (left testicular torsion) - Family & Social History Family History: Father: Diabetes, Type 2 Family History Comment/Other: father: Diabetes mellitus. mother: atrial fibrillation Social History Notes: Home with his , 2 children and his parents live with them currently. He is currently disabled due to his fibromyalgia - POLST Patient has POLST: No POLST Status: DNR Meds/Allgy - Home Medications Home Medications: Ambulatory Orders Medication Instructions Recorded Confirmed Cyclobenzaprine [Flexeril] 10 mg PO TID PRN #20 tablet 07/16/18 07/13/20 Oxycodone HCl/Acetaminophen 1 - 2 each PO Q6H PRN #14 tablet 07/16/18 07/13/20 [Percocet 5-325 mg Tablet] Albuterol Sulf [Ventolin Hfa 1 - 2 puffs INH Q4HR PRN #1 inhaler 05/20/1908/30 Inhaler] LORazepam [Lorazepam] 0.5 mg PO TID PRN #14 tablet 05/20/19 07/13/20 oxyCODONE [Roxicodone] 5 - 10 mg PO Q6H PRN #15 tablet 05/20/19 07/13/20 predniSONE [Prednisone] 40 mg PO DAILY 3 Days #6 tablet 05/20/19 07/13/20 - Allergies Allergies/Adverse Reactions: Allergies Allergy/AdvReac Type Severity Reaction Status Date / Time amoxicillin [Amoxicillin] Allergy Intermediate Rash Verified 07/13/20 21:43 codeine [Codeine] Allergy Intermediate Rash Verified 07/13/20 21:43 Penicillins Allergy Intermediate Rash Verified 07/13/20 21:43 indomethacin AdvReac Unknown Emesis Verified 07/13/20 21:43 gabapentin AdvReac loss of Verified 07/13/20 21:43 bladder control, numbness, tingling in hands and fee Review of Systems - Constitutional Constitutional: denies: Fatigue, Fever, Chills, Weakness - Eyes Eyes: denies: Pain, Dipolpia - Ears, Nose & Throat Ears, Nose & Throat: denies: Ear pain, Sore throat - Cardiovascular Cariovascular: reports: Lightheadedness, Syncope. denies: Irregular heart rate, Palpitations, Chest pain, Edema, Exertional dyspnea, Decr. exercise tolerance - Respiratory Respiratory: denies: Cough, Sputum production, Wheezing, SOB at rest, SOB with exertion - Gastrointestinal Gastrointestinal: reports: Nausea, Reflux/heartburn. denies: Abdominal pain, Abdominal distention, Constipation, Diarrhea, Vomiting, Coffee grounds emesis - Genitourinary Genitourinary: denies: Dysuria, Frequency, Urgency, Hematuria, Incontinence, Flank pain - Musculoskeletal Musculoskeletal: reports: Back pain, Limited range of motion. denies: Muscle pain - Integumentary Integumentary: denies: Rash, Pruritis, Lesions - Neurological Neurological: denies: General weakness, Focal weakness, Headache - Psychiatric Psychiatric: denies: Depression, Anxiety - Endocrine Endocrine: denies: Polyuria, Polydypsia - Hematologic/Lymphatic Hematologic/Lymphatic: denies: Anemia, Bruising Prior Level of Functionality: Patient is independent of activities of daily living. However, he is disabled due to fibromyalgia Exam - Vital Signs Vital Signs: Vital Signs x48h Temp Pulse Resp BP Pulse Ox 07/13/20 23:00 36.7 C 80 20 124/80 96 07/13/20 21:47 36.7 C 85 18 121/97 H 100 07/13/20 21:44 36.7 C 98 19 143/94 H 100 - Physical Exam General Appearance: positive: Alert, Moderate distress Eyes Bilateral: positive: PERRL, EOMI ENT: positive: No signs of dehydration Neck: positive: No JVD, Trachea midline Respiratory: positive: Chest non-tender, No respiratory distress, Breath sounds nml. negative: Wheezes, Rales, Rhonchi Cardiovascular: positive: Regular rate & rhythm, No murmur Abdomen: positive: Non-tender, No organomegaly, Nml bowel sounds, No distention. negative: Guarding, Rebound Back: positive: Nml inspection Skin: positive: Color nml, No rash, Warm, Dry Extremities: positive: Non-tender, Full ROM, Nml appearance, No pedal edema Neurologic/Psychiatric: positive: Oriented x3, Mood/affect nml Conclusion/Plan - Problem List (1) Syncope Conclusion/Plan: Unwitnessed event. Suspect this is vasovagal secondary to intense pain from sciatica and fibromyalgia in combination with alcohol intoxication. Will rule out cardiac cause. Urine drug screen pending IV hydration with normal saline at 100 mils per hour. Orthostatics every shift. 2D echocardiogram ordered. (2) Alcohol intoxication Conclusion/Plan: Patient's blood alcohol level was 291 He had drank 3 shots of vodka and a couple of beers around 4 PM. Patient uses alcohol to cope with the pain from fibromyalgia and sciatica as well as a sedative. He is unable to tolerate most medications for his fibromyalgia. Anticipate discharge before concern for alcohol withdrawal become significant. If patient is in the hospital longer, will order CIWA protocol.. (3) COPD (chronic obstructive pulmonary disease) Conclusion/Plan: Not in exacerbation. Will order a breathing treatment if patient becomes dyspneic Qualifiers: COPD type: COPD with acute exacerbation Qualified Code(s): J44.1 - Chronic obstructive pulmonary disease with (acute) exacerbation - Lab Results Fish Bones: 07/13/20 22:04 07/13/20 22:04 Core Measures - Anticipated LOS I expect patient to be DC'd or transferred within 96 hours.: Yes - DVT/VTE - Prophylaxis VTE/DVT Device ordered at admit?: Yes VTE/DVT Prophylaxis med ordered at admit?: Yes
[2020-07-13] MEDS ORDERED: SODIUM CHLORIDE 0.9% 1,000 ML IV SCH (23:45)
[2020-07-14 00:52] LABS: MUDS CUTOFF CONCENTRATIONS CUTOFF CONC BELOW:
[2020-07-14] MEDS ORDERED: SODIUM CHLORIDE FLUSH 0.9% 10 ML SYRINGE IVP SCH (01:00)
[2020-07-14 01:19] LABS: AMPHETAMINE SCREEN,URINE NEGATIVE (NEGATIVE); BARBITURATE SCREEN,UR NEGATIVE (NEGATIVE); BENZODIAZEPINES SCREEN, URINE NEGATIVE (NEGATIVE); COCAINE SCREEN URINE NEGATIVE (NEGATIVE); METHADONE SCREEN, URINE NEGATIVE (NEGATIVE); METHAMPHETAMINES SCREEN, URINE NEGATIVE (NEGATIVE); OPIATE SCREEN, URINE NEGATIVE (NEGATIVE); OXYCODONE SCREEN, URINE NEGATIVE (NEGATIVE); PROPOXYPHENE SCREEN, URINE NEGATIVE (NEGATIVE); THC CANNABINOID SCREEN, URINE NEGATIVE (NEGATIVE); TRICYCLIC ANTIDEPRESSANT,URINE NEGATIVE (NEGATIVE)
[2020-07-14 01:57] LABS: B. PARAPERTUSSIS- RESP PCR PAN NOT DETECTED; B. PERTUSSIS- RESP PCR PANEL NOT DETECTED; C. PNEUMONIAE- RESP PCR PANEL NOT DETECTED; CORONAVIRUS 229E-RESP PCR NOT DETECTED; CORONAVIRUS HKU1-RESP PCR NOT DETECTED; CORONAVIRUS NL63-RESP PCR NOT DETECTED; CORONAVIRUS OC43-RESP PCR NOT DETECTED; HUMAN METAPNEUMOVIRUS NOT DETECTED; INFLUENZA A- RESP PCR PANEL NOT DETECTED; INFLUENZA B - RESP PCR PANEL NOT DETECTED; M. PNEUMONIAE- RESP PCR PANEL NOT DETECTED; PARAINFLUENZA VIRUS 1 NOT DETECTED; PARAINFLUENZA VIRUS 2 NOT DETECTED; PARAINFLUENZA VIRUS 3 NOT DETECTED; PARAINFLUENZA VIRUS 4 NOT DETECTED; RHINOVIRUS/ENTEROVIRUS NOT DETECTED; RSV- RESP PCR PANEL NOT DETECTED; SARS-CoV-2 -RESP PCR PANEL NOT DETECTED
[2020-07-14 04:51] LABS: BASOPHILS # (AUTO) 0.1 10^3/uL (0.0-0.1); BASOPHILS % (AUTO) 2.2 %; EOSINOPHILS # (AUTO) 0.2 10^3/uL (0.0-0.7); EOSINOPHILS % (AUTO) 3.4 %; HCT - HEMATOCRIT 44.8 % (42.0-52.0); HGB - HEMOGLOBIN 15.4 g/dL (14.0-18.0); LYMPHOCYTES # (AUTO) 1.7 10^3/uL (1.5-3.5); LYMPHOCYTES % (AUTO) 33.9 %; MEAN CORPUSCULAR HEMOGLOBIN 34.8 pg (27.0-31.0); MEAN CORPUSCULAR HGB CONC 34.4 g/dL (32.0-36.0); MEAN CORPUSCULAR VOLUME 101.1 fL (80.0-94.0); MEAN PLATELET VOLUME 8.4 fL (7.4-11.4); MONOCYTES # (AUTO) 0.6 10^3/uL (0.0-1.0); MONOCYTES % (AUTO) 11.4 %; NEUTROPHILS # (AUTO) 2.4 10^3/uL (1.5-6.6); NEUTROPHILS % (AUTO) 48.9 %; PLT - PLATELET COUNT 216 10^3/uL (130-450); RED BLOOD COUNT 4.43 10^6/uL (4.70-6.10); RED CELL DISTRIBUTION WIDTH 12.6 % (12.0-15.0); WHITE BLOOD COUNT 4.9 x10^3/uL (4.8-10.8)
[2020-07-14 05:00] LABS: CALCIUM 8.8 mg/dL (8.5-10.3); CREATININE 0.8 mg/dL (0.6-1.2); POTASSIUM 3.9 mmol/L (3.5-5.0)
[2020-07-14] MEDS ORDERED: PANTOPRAZOLE 40 MG TABLET PO SCH (07:00)
--- NOTE | 2020-07-14 08:46 | XRAY Report ---
PROCEDURE: Chest 1 View X-Ray INDICATIONS: Chest Pain TECHNIQUE: One view of the chest was acquired. COMPARISON: None. FINDINGS: Surgical changes and devices: None. Lungs and pleura: No pleural effusions or pneumothorax. Lungs are clear. Mediastinum: Mediastinal contours appear normal. Heart size is normal. Bones and chest wall: No suspicious bony lesions. Overlying soft tissues appear unremarkable. IMPRESSION: No acute disease. Reviewed by: Piyush Flores MD on 07/14/2020 8:44 AM [facility] Approved by: Piyush Flores MD on 07/14/2020 8:44 AM [facility] Station ID: [id number]
[2020-07-14] MEDS ORDERED: ALBUTEROL NEB 2.5 MG/3 ML INH PRN (08:48)
[2020-07-14] MEDS ORDERED: LORazepam 2 MG/ML VIAL IVP PRN (08:49)
[2020-07-14] MEDS ORDERED: PRENATAL VITAMIN TABLET PO SCH (09:00)
[2020-07-14] MEDS ORDERED: THIAMINE 100 MG TABLET PO SCH (09:00)
[2020-07-14 09:10] LABS: BASOPHILS # (AUTO) 0.1 10^3/uL (0.0-0.1); BASOPHILS % (AUTO) 1.4 %; EOSINOPHILS # (AUTO) 0.2 10^3/uL (0.0-0.7); EOSINOPHILS % (AUTO) 3.2 %; HCT - HEMATOCRIT 43.4 % (42.0-52.0); HGB - HEMOGLOBIN 14.9 g/dL (14.0-18.0); LYMPHOCYTES # (AUTO) 1.6 10^3/uL (1.5-3.5); LYMPHOCYTES % (AUTO) 26.8 %; MEAN CORPUSCULAR HEMOGLOBIN 34.4 pg (27.0-31.0); MEAN CORPUSCULAR HGB CONC 34.3 g/dL (32.0-36.0); MEAN CORPUSCULAR VOLUME 100.2 fL (80.0-94.0); MEAN PLATELET VOLUME 8.5 fL (7.4-11.4); MONOCYTES # (AUTO) 0.6 10^3/uL (0.0-1.0); MONOCYTES % (AUTO) 10.2 %; NEUTROPHILS # (AUTO) 3.4 10^3/uL (1.5-6.6); NEUTROPHILS % (AUTO) 58.2 %; PLT - PLATELET COUNT 220 10^3/uL (130-450); RED BLOOD COUNT 4.33 10^6/uL (4.70-6.10); RED CELL DISTRIBUTION WIDTH 12.8 % (12.0-15.0); WHITE BLOOD COUNT 5.9 x10^3/uL (4.8-10.8)
--- NOTE | 2020-07-14 11:05 | Discharge Plan ---
Discharge Plan Problem Reviewed?: Yes Disposition: Home, Self Care Condition: Stable Prescriptions: Pnv No.95/Ferrous Fum/Folic AC [ Tablet] 1 each PO DAILY #30 tablet Thiamine [Vitamin B-1] 100 mg PO DAILY #30 tablet Diet: Regular Activity Restrictions: Activity as Tolerated Shower Restrictions: No (fall precaution) Instruction Topics: Alcoholism Impact, Alcoholism Get Help Health Concerns: near-syncope Plan of Treatment: Your tests are unremarkable. strongly advise you quit alcohol, and keep hydrati on at home. Care Goals: stabilization and improvement of your medical conditions. Assessment: discussed the care plan with you, answered your questions, you understood. Additional Instructions or Follow Up instructions: You may followup with your PCP in one to two weeks. Should your symptoms return or worsen, you may present ER or call 911 for help. No Smoking: If you smoke, Please STOP! Call for help.
--- NOTE | 2020-07-14 11:17 | DISCHARGE SUMMARY ---
Discharge Summary Admit Date: 07/13/20 Discharge Date: 07/14/20 Discharging Provider: Jaison Lacy Condition at Discharge: Stable Discharge Disposition: 01 Home, Self Care Discharge Facility Name: home - DIAGNOSES Discharge Diagnoses with Status of Each Condition: (1) Syncope pt report he feel dizzy in home after drink alcohol at 4 pm then 7 pm he drink again, he feel dizzy. after pt had IV hydration with normal saline, he felt much better. All his test including Echo, EKG, troponin, all laboratory test are unremarkable. It is likely caused by his alcohol abuse plus dehydration. pt walk without any distress or shortness of breath. pt tolerated his diet and d/c to home (2) Alcohol intoxication pt's blood alcohol level is 300 at the admission, now it is no alcohol in his blood stream, pt has no alcohol withdrawal. strongly advise pt quit alcohol. (3) COPD (chronic obstructive pulmonary disease) stable. - HPI History of Present Illness: refer from 's HPI on 07/13/20 Patient is a 45-year-old male with medical history significant for asthma, COPD, fibromyalgia, migraines, sciatica who presented to the ED after a syncopal episode. This happened around 7 PM today. He has chronic pain. It appears today it was quite significant. The pain seems to radiate down his back to the coccyx. He does not tolerate NSAIDs or opiates for his pain. He also does not tolerate Lyrica or gabapentin for fibromyalgia. As a result he uses alcohol to cope with his pain and in an attempt to sleep at night. He typically drinks 9 cans of beer daily. Today he drank 3 shots of vodka and about 3 cans of beer around 4 PM before the syncopal episode at 7 PM. He denies hitting his head. He fell in the bedroom. His heard him fall and came to his aid im mediately. He explains that he has been feeling dizzy and in the morning before this. It has been a couple of years since he last had a syncopal episode. He has not seen a primary care physician in about 3 years. He reports always being nauseous and dry heaving today. He denied chest pain, fever or chills. He reports frequent dyspnea episodes. In the ED was largely unremarkable. His blood alcohol level was 291. He was presented for admission for further observation and evaluation for concern that his syncopal episode could be due to a cardiac cause. - HOSPITAL COURSE Hospital Course: Patient is admitted for dizziness with alcoholic intoxication. Patient Also show dehydration. After overnight IV fluids for hydration, With serial test including EKG, troponin, echo, laboratory test, All show unremarkable. Patient walk without any distress or shortness breathing. pt tolerate diet. pt has no alcohol withdrawal. Patient is hemodynamic stable. Strongly advised patient quitted alcohol. - ALLERGIES Allergies/Adverse Reactions: Allergies Allergy/AdvReac Type Severity Reaction Status Date / Time amoxicillin [Amoxicillin] Allergy Intermediate Rash Verified 07/13/20 21:43 codeine [Codeine] Allergy Intermediate Rash Verified 07/13/20 21:43 Penicillins Allergy Intermediate Rash Verified 07/13/20 21:43 indomethacin AdvReac Unknown Emesis Verified 07/13/20 21:43 gabapentin AdvReac loss of Verified 07/13/20 21:43 bladder control, numbness, tingling in hands and fee - MEDICATIONS Home Medications: Ambulatory Orders Medication Instructions Recorded Confirmed Cyclobenzaprine [Flexeril] 10 mg PO TID PRN #20 tablet 07/16/18 07/13/20 Oxycodone HCl/Acetaminophen 1 - 2 each PO Q6H PRN #14 tablet 07/16/18 07/13/20 [Percocet 5-325 mg Tablet] Albuterol Sulf [Ventolin Hfa 1 - 2 puffs INH Q4HR PRN #1 inhaler 05/20/19 07/13/20 Inhaler] LORazepam [Lorazepam] 0.5 mg PO TID PRN #14 tablet 05/20/19 07/13/20 oxyCODONE [Roxicodone] 5 - 10 mg PO Q6H PRN #15 tablet 05/20/19 07/13/20 predniSONE [Prednisone] 40 mg PO DAILY 3 Days #6 tablet 05/20/19 07/13/20 Pnv No.95/Ferrous Fum/Folic AC 1 each PO DAILY #30 tablet 07/14/20 [ Tablet] Thiamine [Vitamin B-1] 100 mg PO DAILY #30 tablet 07/14/20 - PHYSICAL EXAM AT DISCHARGE General Appearance: positive: No acute distress, Alert. negative: Lethargic Eyes Bilateral: positive: Normal inspection, PERRL, No lid inflammation ENT: positive: ENT inspection nml, No signs of dehydration. negative: Purulent nasal drainage Neck: positive: Nml inspection, Trachea midline. negative: Thyromegaly, Stiff neck, Tracheal deviation Respiratory: positive: Chest non-tender, No respiratory distress. negative: Wheezes, Rales Cardiovascular: positive: Regular rate & rhythm, No murmur. negative: Tachycardia, Bradycardia, Systolic murmur, Diastolic murmur Peripheral Pulses: positive: 2+ Abdomen: positive: Non-tender, Nml bowel sounds, No distention. negative: Tenderness, Guarding, Rebound Back: positive: Nml inspection Skin: positive: Color nml, Warm, Dry. negative: Cyanosis, Diaphoresis, Pallor Extremities: positive: Non-tender, Full ROM, Nml appearance. negative: Calf tenderness Neurologic/Psychiatric: positive: Oriented x3, Motor nml, Sensation nml. negative: Weakness, Sensory loss, Facial droop, Slurred/abnml speech, Depressed mood/affect - LABS Result Diagrams: 07/14/20 09:00 07/14/20 04:32 - FOLLOW UP Follow Up: Your tests including ECHO, ECHO, lab test, troponin, vital signs are unremarkable. strongly advise you quit alcohol, and keep hydration at home. You may followup with your PCP in one to two weeks. Should your symptoms return or worsen, you may present ER or call 911 for help. - TIME SPENT Time Spent in Discharge (Minutes): 30
[2020-07-14 12:05] LABS: ETOH - ETHANOL < 5.0 mg/dL; MAGNESIUM 2.2 mg/dL (1.7-2.8); PHOSPHORUS 3.3 mg/dL (2.5-4.6)
[2020-07-14 14:41] VITALS: BP 137/87
== END 2020-07-14 14:46 | disposition home or self-care (01) ==
LOC: EDUNIT# → ED 21:37 → MS2 23:27
PROVIDERS: ADMIT Internal Medicine; ATTEND Nurse Practitioner Gerontology
DX: F10.129 Alcohol abuse with intoxication, unspecified (principal); E86.0 Dehydration; R55 Syncope and collapse; Y90.8 Blood alcohol level of 240 mg/100 ml or more; J44.9 Chronic obstructive pulmonary disease, unspecified; M79.7 Fibromyalgia; G43.909 Migraine, unspecified, not intractable, without status migrainosus; G89.29 Other chronic pain; W18.30XA Fall on same level, unspecified, initial encounter; Y92.003 Bedroom of unspecified non-institutional (private) residence as the place of occurrence of the external cause; R11.0 Nausea; K21.9 Gastro-esophageal reflux disease without esophagitis; M54.40 Lumbago with sciatica, unspecified side; Z66 Do not resuscitate
CPT/HCPCS: 36415; 71045; 80048; 80053; 80306; 83690; 83735; 84100; 84484; 85025; 87631; 93005; 93306; 99284; 99285; A9270; G0378; G0480; 0202U; 80320

== ENCOUNTER 2021-01-14 16:05 | Emergency (ER) | payer MEDICARE, MEDICAID ==
--- NOTE | 2021-01-14 16:15 | ED Physician Documentation ---
PD HPI BACK PAIN - Stated complaint Stated Complaint: SIATIC PX - Chief complaint Chief Complaint: Back Pain - History obtained from History obtained from: Patient - History of Present Illness Timing - onset: Chronic (worse the past 1-2 weeks without noted new injury/provocation.) Timing - details: Gradual onset, Waxing and waning Location: Mid, Lower, Left Quality: Pain, Spasm Associated symptoms: Numbness (at times down left lateral leg to foot.), Other (he is feeling lightheaded with near syncope when the pain spasms hard. He says family concerned about him almost passing out so often. That is main reason they brought him to ER today.). No: Fever, Weakness Improves with: No: Meds (he says he does not get improvement with meds, including Ibuprofen, opioids, gabapentin, topical icy-hot. Told to avoid too much Tylenol with his alcohol use.) Worsened by: Movement Contributing factors: No: Lifting, Twisting Similar symptoms before: Diagnosis (chronic low back pain) Recently seen: Admitted (5 months ago for the back pain with fainting episodes and had eval/ECHO/labs/Holter without findings. Presumed underhydrated.) Review of Systems Constitutional: denies: Fever, Chills Nose: denies: Rhinorrhea / runny nose, Congestion Throat: denies: Sore throat Cardiac: denies: Chest pain / pressure Respiratory: denies: Cough GI: reports: Abdominal Pain (he says has upper abd discomfort often. nausea often. poor PO intake due to this, with symptoms worse with eating. He feels okay drinking alcohol though.), Nausea. denies: Vomiting, Constipation, Diarrhea, Bloody / black stool Neurologic: reports: Generalized weakness, Numbness (at times, feels numbness down posterolateral left leg to above the ankle and then side of foot. Not consistent.). 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: Other (left testicular torsion) - Present Medications Home Medications: Ambulatory Orders Medication Instructions Recorded Confirmed Cyclobenzaprine [Flexeril] 10 mg PO TID PRN #20 tablet 07/16/18 07/13/20 Oxycodone HCl/Acetaminophen 1 - 2 each PO Q6H PRN #14 tablet 07/16/18 07/13/20 [Percocet 5-325 mg Tablet] Albuterol Sulf [Ventolin Hfa 1 - 2 puffs INH Q4HR PRN #1 inhaler 05/20/19 07/13/20 Inhaler] LORazepam [Lorazepam] 0.5 mg PO TID PRN #14 tablet 05/20/19 07/13/20 oxyCODONE [Roxicodone] 5 - 10 mg PO Q6H PRN #15 tablet 05/20/19 07/13/20 predniSONE [Prednisone] 40 mg PO DAILY 3 Days #6 tablet 05/20/19 07/13/20 Pnv No.95/Ferrous Fum/Folic AC 1 each PO DAILY #30 tablet 07/14/20 [ Tablet] Thiamine [Vitamin B-1] 100 mg PO DAILY #30 tablet 07/14/20 Lidocaine Patch 5% [Lidoderm Patch] 1 each TOP DAILY #10 patch 01/14/21 Ondansetron Odt [Zofran] 4 mg TL Q6H PRN #10 tablet 01/14/21 Pantoprazole [Protonix] 40 mg PO DAILY #30 tablet 01/14/21 - Allergies Allergies/Adverse Reactions: Allergies Allergy/AdvReac Type Severity Reaction Status Date / Time amoxicillin [Amoxicillin] Allergy Intermediate Rash Verified 01/14/21 16:14 codeine [Codeine] Allergy Intermediate Rash Verified 01/14/21 16:14 Penicillins Allergy Intermediate Rash Verified 01/14/21 16:14 indomethacin AdvReac Unknown Emesis Verified 01/14/21 16:14 gabapentin AdvReac loss of Verified 01/14/21 16:14 bladder control, numbness, tingling in hands and fee - Living Situation Living Situation: reports: With family Living Arrangement: reports: At home - Social History Does the pt smoke?: Yes Smoking Status: Current every day smoker Does the pt drink ETOH?: Yes ETOH Use: Liquor Does the pt have substance abuse?: Yes - Immunizations Immunizations are current?: Yes - POLST Patient has POLST: No POLST Status: DNR PD ED PE NORMAL - Vitals Vital signs reviewed: Yes - General General: Alert and oriented X 3, No acute distress (guarded ROM left lower back, but not appearing significant pain. ), Well developed/nourished (thin and seems underweight. He says has always been thin. ) - Neck Neck: Supple, no meningeal sign, No adenopathy - Cardiac Cardiac: RRR, No murmur - Respiratory Respiratory: Clear bilaterally - Abdomen Abdomen: Soft, Non tender - Derm Derm: Normal color, Warm and dry - Extremities Extremities: Normal ROM s pain, No edema, No calf tenderness / cord Results - Vitals Vitals: Vital Signs - 24 hr 01/14/21 01/14/21 16:09 17:21 Temperature 36.7 C Heart Rate 96 98 Respiratory 16 16 Rate Blood Pressure 142/96 H 128/94 H O2 Saturation 97 Oxygen O2 Source Room air - Labs Labs: Laboratory Tests 01/14/21 16:35 POC Whole Bld Glucose 83 PD MEDICAL DECISION MAKING - ED course Complexity details: reviewed old records (workup for fainting episodes in July 2020, similar symptoms to now. Had ECHO/labs and said he had Holter type monitor outpt as well. No findings. ), reviewed results (glucose okay. Did not see likely value in heart testing as had cardiac workup less than 5 months ago for similar. sounds likely underhydrated/nourished with mainly alcohol as calories source. ), considered differential (patient says he does not get relief with meds for his back pain. He just uses alcohol for it. he is not interested in alcohol treatment and plans to continue alcohol as that is the only effective for him. Has had stomach irritation and nausea with poor food intake. Can try PPI and Zofran to help.), d/w patient ED course: He is not really wanting much eval/treatment. He says he is here at family direction due to pain and with lightheaded/near syncope episodes. He does not want medications per se, as they do not work for him. He says he is mainly appeasing family to get checked. He seems underhydrated and nourished. This is likely the main cause for lightheaded and episodic weakness. Departure - Departure Disposition: 01 Home, Self Care Clinical Impression: Low back pain Qualifiers: Chronicity: acute Back pain laterality: left Sciatica presence: with sciatica Sciatica laterality: sciatica of left side Qualified Code(s): M54.42 - Lumbago with sciatica, left side Condition: Stable Record reviewed to determine appropriate education?: Yes Instructions: ED Sciatica Prescriptions: Lidocaine Patch 5% [Lidoderm Patch] 1 each TOP DAILY #10 patch Pantoprazole [Protonix] 40 mg PO DAILY #30 tablet Ondansetron Odt [Zofran] 4 mg TL Q6H PRN #10 tablet PRN Reason: Nausea / Vomiting Comments: For the sciatic/back pain, try Lidocaine patches daily to the area. Tylenol if needed as well. To help with your stomach symptoms and nausea, we can try a different acid reducing medicine, Protonix daily, as well as medication for nausea called Ondansatron. See if that helps your stomach symptoms so you are able to hydrate well with better food and liquids other than alcohol. You were in the hospital a few months ago with evaluation of the heart and other blood tests that did not show any significant cause for your fainting episodes. I would assume its more likely hydration and nutrition related and would see if we can improve your intake. Discharge Date/Time: 01/14/21 17:22
[2021-01-14] MEDS ORDERED: ONDANSETRON ODT 4 MG TABLET TL STA (16:28)
[2021-01-14] MEDS ORDERED: KETOROLAC 30 MG/ML VIAL IM STA (16:28)
[2021-01-14] MEDS ORDERED: LIDOCAINE PATCH 5% TOP STA (16:28)
[2021-01-14 17:22] VITALS: BP 128/94
== END 2021-01-14 17:22 | disposition home or self-care (01) ==
LOC: ED 16:05
DX: M54.42 Lumbago with sciatica, left side (principal); R55 Syncope and collapse; F17.200 Nicotine dependence, unspecified, uncomplicated
CPT/HCPCS: 96372; 99283; 99284; A9270; Q0162

== ENCOUNTER 2021-01-18 12:39 | Emergency (ER) | payer MEDICARE, MEDICAID ==
[2021-01-18 13:09] LABS: BASOPHILS # (AUTO) 0.1 10^3/uL (0.0-0.1); BASOPHILS % (AUTO) 1.4 %; EOSINOPHILS % (AUTO) 0.5 %; HCT - HEMATOCRIT 46.2 % (42.0-52.0); HGB - HEMOGLOBIN 16.1 g/dL (14.0-18.0); LYMPHOCYTES # (AUTO) 0.8 10^3/uL (1.5-3.5); LYMPHOCYTES % (AUTO) 13.8 %; MEAN CORPUSCULAR HGB CONC 34.8 g/dL (32.0-36.0); MEAN CORPUSCULAR VOLUME 100.4 fL (80.0-94.0); MEAN PLATELET VOLUME 8.5 fL (7.4-11.4); MONOCYTES # (AUTO) 0.7 10^3/uL (0.0-1.0); MONOCYTES % (AUTO) 12.4 %; NEUTROPHILS # (AUTO) 4.1 10^3/uL (1.5-6.6); NEUTROPHILS % (AUTO) 71.7 %; PLT - PLATELET COUNT 222 10^3/uL (130-450); RED CELL DISTRIBUTION WIDTH 12.3 % (12.0-15.0); WHITE BLOOD COUNT 5.7 x10^3/uL (4.8-10.8)
[2021-01-18 13:13] VITALS: BP 136/105
--- NOTE | 2021-01-18 13:15 | XRAY Report ---
PROCEDURE: Chest 1 View X-Ray INDICATIONS: Chest Pain TECHNIQUE: One view of the chest was acquired. COMPARISON: Chest radiographs dated 07/13/2020 FINDINGS: Surgical changes and devices: None. Lungs and pleura: No pleural effusions or pneumothorax. Lungs are clear. Mediastinum: Mediastinal contours appear normal. Heart size is normal. Bones and chest wall: No suspicious bony lesions. Overlying soft tissues appear unremarkable. IMPRESSION: No acute cardiopulmonary abnormality. Reviewed by: Ge Goode MD on 01/18/2021 1:14 PM PDT Approved by: Ge Goode MD on 01/18/2021 1:14 PM PDT Station ID: [id number]
--- NOTE | 2021-01-18 13:18 | ED Physician Documentation ---
History of Present Illness - Stated complaint Stated Complaint: HIGH BLOOD PRESSURE - Chief complaint Chief Complaint: Cardiac - Additonal information Additional information: 45-year-old male was advised to come to the emergency department for evaluation of elevated blood pressure, tachycardia as well as back pain. This gentleman was seen here in this emergency department on 14 December with back pain that radiated to his legs. It was presumed to be sciatica at that time. Patient states that this morning he has felt short of breath and had some chest pain but he says that he has had chest pain for a long time. In fact he had a cardiac work-up about 5 months ago for similar which did not show any worrisome findings.. There is concern in this gentleman's history that he may have alcohol as his main caloric source. Patient reports a history of COPD and asthma. He is a daily tobacco user. He was prescribed pantoprazole after his last ER visit but has not filled that prescription. Review of Systems Constitutional: denies: Fever, Chills Eyes: reports: Reviewed and negative Nose: reports: Reviewed and negative Throat: reports: Reviewed and negative Cardiac: reports: Chest pain / pressure. denies: Palpitations, Pedal edema, Calf pain Respiratory: reports: Dyspnea. 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: Other (left testicular torsion) - Present Medications Home Medications: Ambulatory Orders Medication Instructions Recorded Confirmed Cyclobenzaprine [Flexeril] 10 mg PO TID PRN #20 tablet 07/16/18 07/13/20 Oxycodone HCl/Acetaminophen 1 - 2 each PO Q6H PRN #14 tablet 07/16/18 07/13/20 [Percocet 5-325 mg Tablet] Albuterol Sulf [Ventolin Hfa 1 - 2 puffs INH Q4HR PRN #1 inhaler 05/20/19 07/13/20 Inhaler] LORazepam [Lorazepam] 0.5 mg PO TID PRN #14 tablet 05/20/19 07/13/20 oxyCODONE [Roxicodone] 5 - 10 mg PO Q6H PRN #15 tablet 05/20/19 07/13/20 predniSONE [Prednisone] 40 mg PO DAILY 3 Days #6 tablet 05/20/19 07/13/20 Pnv No.95/Ferrous Fum/Folic AC 1 each PO DAILY #30 tablet 07/14/20 [ Tablet] Thiamine [Vitamin B-1] 100 mg PO DAILY #30 tablet 07/14/20 Lidocaine Patch 5% [Lidoderm Patch] 1 each TOP DAILY #10 patch 01/14/21 Ondansetron Odt [Zofran] 4 mg TL Q6H PRN #10 tablet 01/14/21 Pantoprazole [Protonix] 40 mg PO DAILY #30 tablet 01/14/21 predniSONE [Deltasone] 40 mg PO DAILY 4 Days #8 tablet 01/18/21 - Allergies Allergies/Adverse Reactions: Allergies Allergy/AdvReac Type Severity Reaction Status Date / Time amoxicillin [Amoxicillin] Allergy Intermediate Rash Verified 01/18/21 12:48 codeine [Codeine] Allergy Intermediate Rash Verified 01/18/21 12:48 Penicillins Allergy Intermediate Rash Verified 01/18/21 12:48 indomethacin AdvReac Unknown Emesis Verified 01/18/21 12:48 gabapentin AdvReac loss of Verified 01/18/21 12:48 bladder control, numbness, tingling in hands and fee - Social History Does the pt smoke?: Yes Smoking Status: Current every day smoker Does the pt drink ETOH?: Yes Does the pt have substance abuse?: Yes - Immunizations Immunizations are current?: Yes - POLST Patient has POLST: No POLST Status: DNR PD ED PE EXPANDED - General General: Alert, No acute distress, Other (Tall thin lanky gentleman) - Neck Neck: Supple w/out meningeal sx. No: Adenopathy - Cardiac Cardiac: Tachy, Radial strong equal, Pedal strong equal, Cap refill < 2 sec. No: Murmur Present - Respiratory Respiratory: Clear to ausultation naveen. No: Distress, Labored - Abdomen Abdomen: Normal Bowel sounds. No: Tender to palpation - Derm Derm: Normal color, Warm and dry. No: Rash - Neuro Neuro: Alert and Oriented X 3, CNII-XII intact. No: Confused, Disoriented - GCS Eye Opening: Spontaneous Motor: Obeys Commands Verbal: Oriented Total: 15 Results - Vitals Vitals: Vital Signs - 24 hr 01/18/21 01/18/21 12:44 13:09 Temperature 36.6 C Heart Rate 128 H 110 H Respiratory 16 14 Rate Blood Pressure 148/96 H 136/105 H O2 Saturation 100 98 Oxygen O2 Source Room air - EKG (time done) 1255 Rate: Rate (enter#) (110) Rhythm: Sinus tachycardia Franklin: RAD Intervals: Normal DE, Prolonged QT QRS: LVH Ischemia: Normal ST segments Compare to prior EKG: Changed from prior EKG (Faster rate, morphology unchanged) Computer interpretation: Agree with computer - Labs Labs: Laboratory Tests 01/18/21 01/18/21 01/18/21 13:04 13:04 13:04 WBC 5.7 RBC 4.60 L Hgb 16.1 Hct 46.2 MCV 100.4 H MCH 35.0 H MCHC 34.8 RDW 12.3 Plt Count 222 MPV 8.5 Neut # (Auto) 4.1 Lymph # (Auto) 0.8 L Montgomery # (Auto) 0.7 Eos # (Auto) 0.0 Baso # (Auto) 0.1 Absolute Nucleated RBC 0.00 Nucleated RBC % 0.0 Sodium 141 Potassium 3.6 Chloride 100 L Carbon Dioxide 27 Anion Gap 14.0 H BUN 10 Creatinine 1.0 Estimated GFR (MDRD) 81 L Glucose 116 H Calcium 9.8 Total Bilirubin 1.2 H AST 45 H ALT 50 Alkaline Phosphatase 45 Troponin I High Sens 3.0 B-Natriuretic Peptide Total Protein 8.0 Albumin 4.7 Globulin 3.3 Albumin/Globulin Ratio 1.4 Lipase 34 Ethyl Alcohol < 5.0 01/18/21 13:04 WBC RBC Hgb Hct MCV MCH MCHC RDW Plt Count MPV Neut # (Auto) Lymph # (Auto) Montgomery # (Auto) Eos # (Auto) Baso # (Auto) Absolute Nucleated RBC Nucleated RBC % Sodium Potassium Chloride Carbon Dioxide Anion Gap BUN Creatinine Estimated GFR (MDRD) Glucose Calcium Total Bilirubin AST ALT Alkaline Phosphatase Troponin I High Sens B-Natriuretic Peptide 32 Total Protein Albumin Globulin Albumin/Globulin Ratio Lipase Ethyl Alcohol - Rads (name of study) CXR Radiology: Final report received (No acute cardiopulmonary pathology.) PD MEDICAL DECISION MAKING - ED course Complexity details: reviewed results, considered differential, d/w patient ED course: 45-year-old male who has a history of alcohol abuse presents to the emergency department for evaluation of left-sided back pain as well as hypertension and tachycardia. He was referred here from the walk-in clinic this morning. He was seen in this ER a few days ago for the back pain and was prescribed lidocaine patches. Patient has not had an opportunity to fill them. Today in the emergency department his EKG is nonischemic but sinus tach with LVH. At rest his heart rate is noted to be in the high 90s but with movement or pain it does exceed 110. Chest x-ray is without acute focal abnormalities and screening labs do not show an elevated troponin or BNP. I discussed with the patient that given his unremarkable echocardiogram about 5 months ago no further cardiac testing would be indicated today. We discussed that the likely etiology of his hypertension and tachycardia is related to pain as well as alcohol abuse. He admits to drinking on average 8 beers a day in part to help control his pain. He is requesting prednisone as he states that is helped significantly with his pain in the past and I feel that is a reasonable alternative at this time. I have encouraged him to continue reducing his alcohol intake which he seems open to doing. Emergent return precautions were discussed. Departure - Departure Disposition: 01 Home, Self Care Clinical Impression: Alcohol abuse, Tachycardia Hypertension Qualifiers: Hypertension type: unspecified Qualified Code(s): I10 - Essential (primary) hypertension Left-sided back pain Qualifiers: Back pain location: low back pain Chronicity: unspecified Sciatica presence: without sciatica Qualified Code(s): M54.5 - Low back pain Condition: Stable Record reviewed to determine appropriate education?: Yes Prescriptions: predniSONE [Deltasone] 40 mg PO DAILY 4 Days #8 tablet Comments: Miguel A you are seen in the emergency department today for concerns of left-sided back pain as well as an elevated heart rate and blood pressure. Your screening labs do not show any worrisome findings. You did have unremarkable cardiac testing in July of this year. The cause of your elevated heart rate and blood pressure is likely twofold. #1 is related to the Back pain. In order to treat this today I am prescribing prednisone which you can fill tomorrow and begin taking daily for the next 4 days. Your first dose was given in the emergency department. The #2 reason for the high blood pressure and elevated heart rate is likely due to chronic alcohol use. I know that you have been cutting back on your alcohol intake and I applaud you for this effort. It is going to be important in the long-term that you stop drinking. This will absolutely reduce your cardiovascular risk and may improve your blood pressure and heart rate overall. Please continue to follow-up with your primary care provider. If at any point you have further fainting episodes, severe shortness of breath, leg swelling or unexplained bleeding then please return immediately to the ER for a second evaluation.
[2021-01-18] MEDS ORDERED: SODIUM CHLORIDE 0.9% 1,000 ML IV STA (13:24)
[2021-01-18 13:28] LABS: ALBUMIN 4.7 g/dL (3.2-5.5); ALBUMIN/GLOBULIN RATIO 1.4 (1.0-2.2); ALKALINE PHOSPHATASE 45 IU/L (42-121); ALT ALANINE AMINOTRANSFERASE 50 IU/L (10-60); AST ASPARTATE AMINOTRANSFERASE 45 IU/L (10-42); BILIRUBIN,TOTAL 1.2 mg/dL (0.2-1.0); BUN - BLOOD UREA NITROGEN 10 mg/dL (6-20); CALCIUM 9.8 mg/dL (8.5-10.3); CARBON DIOXIDE - CO2 27 mmol/L (21-32); CHLORIDE 100 mmol/L (101-111); ETOH - ETHANOL < 5.0 mg/dL; GFR - MDRD 81 (>89); GLUCOSE 116 mg/dL (70-100); LIPASE 34 U/L (22-51); POTASSIUM 3.6 mmol/L (3.5-5.0); SODIUM 141 mmol/L (135-145)
[2021-01-18] MEDS ORDERED: predniSONE 20 MG TABLET PO STA (13:39)
[2021-01-18] MEDS ORDERED: HYDROmorphone 1 MG/ML CARPUJECT IVP STA (13:39)
== END 2021-01-18 14:30 | disposition home or self-care (01) ==
LOC: ED 12:39
DX: F10.10 Alcohol abuse, uncomplicated (principal); R00.0 Tachycardia, unspecified; I10 Essential (primary) hypertension; M54.5 Low back pain; F17.200 Nicotine dependence, unspecified, uncomplicated; Z66 Do not resuscitate
CPT/HCPCS: 36415; 71045; 80053; 83690; 83880; 84484; 85025; 93005; 96374; 99284; G0480; J1170; J7512; 80320

== ENCOUNTER 2021-05-03 12:19 | Emergency (ER) | payer MEDICAID, MEDICARE ==
[2021-05-03] MEDS ORDERED: DEXAMETHASONE 10 MG/ML VIAL PO STA (14:11)
[2021-05-03] MEDS ORDERED: KETOROLAC 60 MG/2 ML VIAL IM STA (14:11)
[2021-05-03] MEDS ORDERED: CHERRY SYRUP 10 ML UDC PO ONE (14:11)
--- NOTE | 2021-05-03 14:13 | ED Physician Documentation ---
PD HPI BACK PAIN - Stated complaint Stated Complaint: HIP PX - Chief complaint Chief Complaint: Ext Problem - History obtained from History obtained from: Patient - History of Present Illness Timing - onset: How many days ago (5) Timing - duration: Days (5) Timing - details: Abrupt onset, Still present Location: Lower, Left Quality: Pain, Spasm, Sharp, Similar to prior episodes Associated symptoms: Numbness (as always for years). No: Fever, Weakness, Incontinent of urine, Hematuria, Incontinent of stool Improves with: Rest Worsened by: Movement, Lifting, Twisting, Palpation Contributing factors: Other (slipped on wet grass) Similar symptoms before: Diagnosis (sciatica) Recently seen: Not recently seen - Additional information Additional information: 46-year-old male with a history of chronic sciatica slipped on wet grass 5 days ago in his home and has increase in his symptoms. He has spasm and pain especially to the left side with pain radiating down into the left leg. He usually has difficulty initiating a bowel movement and he has some difficulty with urination and that he has some numbness to his perineum that has been present for years. He does remember getting MRI done at some time in the past. 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: Other (left testicular torsion) - Present Medications Home Medications: Ambulatory Orders Medication Instructions Recorded Confirmed Cyclobenzaprine [Flexeril] 10 mg PO TID PRN #20 tablet 07/16/18 07/13/20 Oxycodone HCl/Acetaminophen 1 - 2 each PO Q6H PRN #14 tablet 07/16/18 07/13/20 [Percocet 5-325 mg Tablet] Albuterol Sulf [Ventolin Hfa 1 - 2 puffs INH Q4HR PRN #1 inhaler 05/20/19 07/13/20 Inhaler] LORazepam [Lorazepam] 0.5 mg PO TID PRN #14 tablet 05/20/19 07/13/20 oxyCODONE [Roxicodone] 5 - 10 mg PO Q6H PRN #15 tablet 05/20/19 07/13/20 predniSONE [Prednisone] 40 mg PO DAILY 3 Days #6 tablet 05/20/19 07/13/20 Pnv No.95/Ferrous Fum/Folic AC 1 each PO DAILY #30 tablet 07/14/20 [ Tablet] Thiamine [Vitamin B-1] 100 mg PO DAILY #30 tablet 07/14/20 Lidocaine Patch 5% [Lidoderm Patch] 1 each TOP DAILY #10 patch 01/14/21 Ondansetron Odt [Zofran] 4 mg TL Q6H PRN #10 tablet 01/14/21 Pantoprazole [Protonix] 40 mg PO DAILY #30 tablet 01/14/21 predniSONE [Deltasone] 40 mg PO DAILY 4 Days #8 tablet 01/18/21 Cyclobenzaprine [Flexeril] 10 mg PO TID PRN #20 tablet 05/03/21 Oxycodone HCl/Acetaminophen 1 - 2 each PO Q6H PRN #14 tablet 05/03/21 [Percocet 5-325 mg Tablet] - Allergies Allergies/Adverse Reactions: Allergies Allergy/AdvReac Type Severity Reaction Status Date / Time amoxicillin [Amoxicillin] Allergy Intermediate Rash Verified 05/03/21 13:00 codeine [Codeine] Allergy Intermediate Rash Verified 05/03/21 13:00 Penicillins Allergy Intermediate Rash Verified 05/03/21 13:00 indomethacin AdvReac Unknown Emesis Verified 05/03/21 13:00 gabapentin AdvReac loss of Verified 05/03/21 13:00 bladder control, numbness, tingling in hands and fee - Social History Does the pt smoke?: Yes Smoking Status: Current every day smoker Does the pt drink ETOH?: Yes Does the pt have substance abuse?: Yes - Immunizations Immunizations are current?: Yes - POLST Patient has POLST: No POLST Status: DNR PD ED PE NORMAL - Vitals Vital signs reviewed: Yes (Tachycardic and hypertensive) - General General: Alert and oriented X 3, No acute distress, Well developed/nourished - HEENT HEENT: Atraumatic, PERRL, EOMI - Respiratory Respiratory: No respiratory distress - Back Back: No CVA TTP, No spinal TTP, Other (There is tenderness and spasm to the muscles of the lower lumbar spine bilaterally worse on the left than the right extending into the sciatic notch on the left. 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 He has had an exacerbation of his sciatica after slipping on grass 5 days ago. He is administered dexamethasone 10 mg orally 60 mg of Toradol IM we will place him on a short course of pain medication and muscle relaxant. Departure - Departure Disposition: 01 Home, Self Care Clinical Impression: Sciatica Qualifiers: Laterality: left Qualified Code(s): M54.32 - Sciatica, left side Condition: Stable Instructions: ED Sciatica Follow-Up: Evie Daly ARNP [Primary Care Provider] - Prescriptions: Cyclobenzaprine [Flexeril] 10 mg PO TID PRN #20 tablet PRN Reason: Spasms Oxycodone HCl/Acetaminophen [Percocet 5-325 mg Tablet] 1 - 2 each PO Q6H PRN #14 tablet PRN Reason: pain
[2021-05-03 15:14] VITALS: BP 150/90
== END 2021-05-03 15:13 | disposition home or self-care (01) ==
LOC: ED 12:19
DX: M54.32 Sciatica, left side (principal); W01.0XXA Fall on same level from slipping, tripping and stumbling without subsequent striking against object, initial encounter; Y92.009 Unspecified place in unspecified non-institutional (private) residence as the place of occurrence of the external cause; F17.200 Nicotine dependence, unspecified, uncomplicated
CPT/HCPCS: 96372; 99283; A9270

== ENCOUNTER 2021-05-11 11:09 | Outpatient (CLI) | payer MEDICARE ==
--- NOTE | 2021-05-11 12:56 | XRAY Report ---
PROCEDURE: Ankle 3 View LT INDICATIONS: LEFT ANKLE SWELLING TECHNIQUE: 3 views of the ankle were acquired. COMPARISON: X-ray foot 05/11/2021 FINDINGS: Bones: No fractures or dislocations. Ankle mortise is normally aligned. No suspicious bony lesions . Soft tissues: No tibiotalar joint effusion. Achilles tendon appears normal. IMPRESSION: No visualized acute fracture or dislocation. However, occult injury cannot be excluded. Recommend short interval imaging follow-up in 7-10 days as clinically indicated for additional evalua tion. Reviewed by: Anamika Silver MD on 05/11/2021 12:[address] [facility] Approved by: Anamika Silver MD on 05/11/2021 12:[address] [facility] Station ID: [id number]
--- NOTE | 2021-05-11 12:58 | XRAY Report ---
PROCEDURE: Foot 3 View LT INDICATIONS: LEFT FOOT PAIN TECHNIQUE: 3 views of the foot were acquired. COMPARISON: X-ray ankle 05/11/2021 FINDINGS: Bones: No fractures or dislocations. No suspicious bony lesions. Soft tissues: No tibiotalar joint effusion. Achilles tendon appears normal. IMPRESSION: No visualized acute fracture or dislocation. However, occult injury cannot be excluded. Recommend ava rt interval imaging follow-up in 7-10 days as clinically indicated for additional evaluation. Reviewed by: Anamika Silver MD on 05/11/2021 12:57 PM PST Approved by: Anamika Silver MD on 05/11/2021 12:57 PM PST Station ID: [id number]
--- NOTE | 2021-05-11 13:04 | XRAY Report ---
PROCEDURE: Thoracic Spine 2 View INDICATIONS: THORACIC BACK PAIN TECHNIQUE: 3 views of the thoracic spine were acquired. COMPARISON: None. FINDINGS: Bones: No fractures or dislocations. No suspicious bony lesions. 12 pairs of ribs are noted, and a ppear intact where visualized. Mild scattered areas of degenerative disc space narrowing throughout the thoracic spine. Soft tissues: No paravertebral stripe thickening. IMPRESSION: Degenerative disc space narrowing as above. Reviewed by: Anamika Silver MD on 05/11/2021 1:02 PM [facility] Approved by: Anamika Silver MD on 05/11/2021 1:02 PM [facility] Station ID: [id number]
== END 2021-05-11 11:10 | disposition home or self-care (01) ==
LOC: DI.N 11:09
PROVIDERS: ATTEND Registered Nurse
DX: M25.472 Effusion, left ankle (principal); M79.672 Pain in left foot; M51.34 Other intervertebral disc degeneration, thoracic region; M54.30 Sciatica, unspecified side; G89.4 Chronic pain syndrome

== ENCOUNTER 2021-05-19 18:49 | Emergency (ER) | payer MEDICARE ==
[2021-05-19 19:08] VITALS: BP 127/82
[2021-05-19 19:35] LABS: BASOPHILS # (AUTO) 0.1 10^3/uL (0.0-0.1); BASOPHILS % (AUTO) 1.7 %; EOSINOPHILS # (AUTO) 0.2 10^3/uL (0.0-0.7); EOSINOPHILS % (AUTO) 3.2 %; HCT - HEMATOCRIT 46.1 % (42.0-52.0); HGB - HEMOGLOBIN 16.2 g/dL (14.0-18.0); LYMPHOCYTES # (AUTO) 1.4 10^3/uL (1.5-3.5); LYMPHOCYTES % (AUTO) 20.1 %; MEAN CORPUSCULAR HEMOGLOBIN 34.8 pg (27.0-31.0); MEAN CORPUSCULAR HGB CONC 35.1 g/dL (32.0-36.0); MEAN CORPUSCULAR VOLUME 99.1 fL (80.0-94.0); MEAN PLATELET VOLUME 8.5 fL (7.4-11.4); MONOCYTES # (AUTO) 0.7 10^3/uL (0.0-1.0); MONOCYTES % (AUTO) 10.2 %; NEUTROPHILS # (AUTO) 4.4 10^3/uL (1.5-6.6); NEUTROPHILS % (AUTO) 64.4 %; PLT - PLATELET COUNT 356 10^3/uL (130-450); RED BLOOD COUNT 4.65 10^6/uL (4.70-6.10); WHITE BLOOD COUNT 6.9 x10^3/uL (4.8-10.8)
[2021-05-19 19:49] LABS: ALBUMIN/GLOBULIN RATIO 1.3 (1.0-2.2); BILIRUBIN,TOTAL 0.7 mg/dL (0.2-1.0); CALCIUM 9.1 mg/dL (8.5-10.3); CREATININE 0.9 mg/dL (0.6-1.2); POTASSIUM 3.7 mmol/L (3.5-5.0)
[2021-05-19] MEDS ORDERED: KETOROLAC 30 MG/ML VIAL IVP STA (19:49)
--- NOTE | 2021-05-19 19:49 | ED Physician Documentation ---
PD HPI ABD PAIN - Stated complaint Stated Complaint: ABD PX - Chief complaint Chief Complaint: Abd Pain - History obtained from History obtained from: Patient - History of Present Illness Timing - onset: How many days ago (3) Timing - duration: Days (3) Timing - details: Gradual onset Pain level max: 8 Pain level now: 6 Quality: Aching, Pain Location: LLQ Radiation: No: Chest, , Lower back, Left flank, Left shoulder, Right flank, Right shoulder, Upper back Associated symptoms: Constipation - Additional information Additional information: Patient is a 46-year-old male who presents since to the emergency department left lower quadrant abdominal pain. He states has been hurting for the past 3 days, worsened today. Nonradiating. Nothing makes it better or worse. He states he has been constipated recently. He states he had been on Percocet and steroids for back pain. He states he has a history of irritable bowel syndrome. No history of diverticulitis or colitis. No fevers. No chills. No vomiting. No blood in the stool. Review of Systems Constitutional: denies: Fever, Chills Respiratory: denies: Cough GI: denies: Nausea, Vomiting, Diarrhea : denies: Dysuria, Frequency, Hesitancy Skin: denies: Rash Musculoskeletal: reports: Back pain (chronic, unchanged, L sided radiating to the L leg.). 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) - Present Medications Home Medications: Ambulatory Orders Medication Instructions Recorded Confirmed Cyclobenzaprine [Flexeril] 10 mg PO TID PRN #20 tablet 07/16/18 07/13/20 Oxycodone HCl/Acetaminophen 1 - 2 each PO Q6H PRN #14 tablet 07/16/18 07/13/20 [Percocet 5-325 mg Tablet] Albuterol Sulf [Ventolin Hfa 1 - 2 puffs INH Q4HR PRN #1 inhaler 05/20/19 07/13/20 Inhaler] LORazepam [Lorazepam] 0.5 mg PO TID PRN #14 tablet 05/20/19 07/13/20 oxyCODONE [Roxicodone] 5 - 10 mg PO Q6H PRN #15 tablet 05/20/19 07/13/20 predniSONE [Prednisone] 40 mg PO DAILY 3 Days #6 tablet 05/20/19 07/13/20 Pnv No.95/Ferrous Fum/Folic AC 1 each PO DAILY #30 tablet 07/14/20 [ Tablet] Thiamine [Vitamin B-1] 100 mg PO DAILY #30 tablet 07/14/20 Lidocaine Patch 5% [Lidoderm Patch] 1 each TOP DAILY #10 patch 01/14/21 Ondansetron Odt [Zofran] 4 mg TL Q6H PRN #10 tablet 01/14/21 Pantoprazole [Protonix] 40 mg PO DAILY #30 tablet 01/14/21 predniSONE [Deltasone] 40 mg PO DAILY 4 Days #8 tablet 01/18/21 Cyclobenzaprine [Flexeril] 10 mg PO TID PRN #20 tablet 05/03/21 Oxycodone HCl/Acetaminophen 1 - 2 each PO Q6H PRN #14 tablet 05/03/21 [Percocet 5-325 mg Tablet] Sennosides/Docusate Sodium 1 each PO QDAC PRN #30 tablet 05/07/21 [Senna-Docusate Sodium Tablet] predniSONE [Prednisone 21-TAB dose 60 mg PO QDAC 6 Days #21 tab 05/07/21 pack] Dicyclomine [Bentyl] 10 mg PO QID PRN #20 cap 05/19/21 HYDROcod/ACETAM 5/325 [[place] 5/325] 1 - 2 ea PO Q6H PRN #14 tablet 05/19/21 Meloxicam [Mobic] 15 mg PO DAILY PRN #20 tablet 05/19/21 - Allergies Allergies/Adverse Reactions: Allergies Allergy/AdvReac Type Severity Reaction Status Date / Time amoxicillin [Amoxicillin] Allergy Intermediate Rash Verified 05/19/21 19:08 codeine [Codeine] Allergy Intermediate Rash Verified 05/19/21 19:08 Penicillins Allergy Intermediate Rash Verified 05/19/21 19:08 indomethacin AdvReac Unknown Emesis Verified 05/19/21 19:08 gabapentin AdvReac loss of Verified 05/19/21 19:08 bladder control, numbness, tingling in hands and fee - Social History Does the pt smoke?: Yes Smoking Status: Current every day smoker Does the pt drink ETOH?: Yes Does the pt have substance abuse?: Yes - Immunizations Immunizations are current?: Yes - POLST Patient has POLST: No POLST Status: DNR PD ED PE NORMAL - Vitals Vital signs reviewed: Yes - General General: Alert and oriented X 3, No acute distress - HEENT HEENT: Moist mucous membranes - Neck Neck: Supple, no meningeal sign - Cardiac Cardiac: RRR, Strong equal pulses - Respiratory Respiratory: No respiratory distress, Clear bilaterally - Abdomen Abdomen: Soft, Non distended, Other (mild TTP LLQ no peritoneal signs. ) - Male Male : Other (no hernias) - Back Back: No spinal TTP (No midline tenderness to palpation or percussion. No step- off or deformity. No spasm.) - Derm Derm: Warm and dry, No rash - Extremities Extremities: No edema, No calf tenderness / cord - Neuro Neuro: Alert and oriented X 3, No motor deficit, No sensory deficit, Other (Normal bilateral lower extremity patellar and ankle jerk reflexes. Normal great toe extension bilaterally. no saddle anesthesia) - Psych Psych: Normal mood, Normal affect Results - Vitals Vitals: Vital Signs - 24 hr 05/19/21 19:05 Temperature 36.5 C Heart Rate 110 H Respiratory 15 Rate Blood Pressure 127/82 H O2 Saturation 97 Oxygen O2 Source Room air - Labs Labs: Laboratory Tests 05/19/21 05/19/21 05/19/21 19:22 19:22 19:58 WBC 6.9 RBC 4.65 L Hgb 16.2 Hct 46.1 MCV 99.1 H MCH 34.8 H MCHC 35.1 RDW 12.0 Plt Count 356 MPV 8.5 Neut # (Auto) 4.4 Lymph # (Auto) 1.4 L [place] # (Auto) 0.7 Eos # (Auto) 0.2 Baso # (Auto) 0.1 Absolute Nucleated RBC 0.00 Nucleated RBC % 0.0 Sodium 136 Potassium 3.7 Chloride 99 L Carbon Dioxide 22 Anion Gap 15.0 H BUN 9 Creatinine 0.9 Estimated GFR (MDRD) 91 Glucose 121 H Calcium 9.1 Total Bilirubin 0.7 AST 22 ALT 28 Alkaline Phosphatase 47 Total Protein 7.0 Albumin 4.0 Globulin 3.0 Albumin/Globulin Ratio 1.3 Lipase 133 H Urine Color YELLOW Urine Clarity CLEAR Urine pH 5.5 Ur Specific [place] 1.020 Urine Protein NEGATIVE Urine Glucose (UA) NEGATIVE Urine Ketones NEGATIVE Urine Occult Blood NEGATIVE Urine Nitrite NEGATIVE Urine Bilirubin NEGATIVE Urine Urobilinogen 0.2 (NORMAL) Ur Leukocyte Esterase NEGATIVE Ur Microscopic Review NOT INDICATED Urine Culture Comments NOT INDICATED - Rads (name of study) CT abd/pelvis Radiology: Final report received, EMP read contemporaneously, See rad report PD MEDICAL DECISION MAKING - ED course Complexity details: reviewed results, re-evaluated patient, considered differential, d/w patient ED course: Unclear etiology the patient's left lower quadrant abdominal pain. No significant findings on laboratory testing or CT scan. Toradol did not do much to relieve his pain, but does feel better after Bentyl and hydrocodone. He had been on Percocet recently for back pain. There are no hernias. No ureteral stones. We will trial the patient on a short course of pain medication and have him follow-up with his doctor. I am prescribing a short course of short-acting opioid pain medication for this patient. 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 I have discussed that the opioids are for short term therapy only, and will not be refilled from the ED. patient counseled regarding signs and symptoms for which I believe and urgent re-evaluation would be necessary. Patient with good understanding of and agreement to plan and is comfortable going home at this time This document was made in part using voice recognition software. While efforts are made to proofread this document, sound alike and grammatical errors may occur. IMPRESSION: 1. Food material is present within the nondistended stomach, and the gallbladder is contracted. No upper abdominal acute disease is found. 2. 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 No hydronephrosis or nephrolithiasis is present. No discrete vascular abnormality is associated. 3. Over the right and left lower quadrants no area of inflammation is found. There is no suspicion for appendicitis or diverticulitis and no free fluid or free air is seen. A definite source of left lower quadrant pain is not identified. Departure - Departure Disposition: 01 Home, Self Care Clinical Impression: Abdominal pain Qualifiers: Abdominal location: left lower quadrant Qualified Code(s): R10.32 - Left lower quadrant pain Condition: Good Instructions: ED Abdominal Pain Unkn Cause Male Follow-Up: Evie Daly ARNP [Primary Care Provider] - Within 1 week Prescriptions: Dicyclomine [Bentyl] 10 mg PO QID PRN #20 cap PRN Reason: Abdominal Pain Meloxicam [Mobic] 15 mg PO DAILY PRN #20 tablet PRN Reason: pain HYDROcod/ACETAM 5/325 [[place] 5/325] 1 - 2 ea PO Q6H PRN #14 tablet PRN Reason: Pain Comments: The cause of your pain is unclear today. There are no significant laboratory abnormalities, CT scan abnormalities To explain your pain. We will try you on pain medication and antispasmodics for your bowels for home. We will have you follow-up with your doctor for further care. Your prescriptions were sent to [facility] in [place]. I am prescribing a short course of narcotic pain medication for you. These are potentially dangerous and addictive medications that should be used carefully. These medications may constipate you. Take an etvc-aag-gohelrx stool softener (docusate) twice daily with plenty of water while taking these medications. If you go 24 hours without a bowel movement, take [id number] miralax, per package instructions. Do not drink or drive while taking these medications. If you received narcotic or sedating medications while in the emergency department, do not drive for 24 hours. Store this medication in a safe, secure place and out of reach of children. It is a violation of federal law to give or sell this medication to another person or to use in a manner other than prescribed. The ED will not refill narcotic prescriptions, including prescriptions lost or stolen. To dispose of unwanted medications: 1. [facility] at [address] in [place] has a medication drop box. They accept prescription medications (in pill form) Friday through Friday 9:00 a.m. to 5:00 p.m. 2. The [facility] [employer] accepts prescription medications (in pill form only) for disposal year round. Call for more information. 3. Contact the [facility] for the next [facility] sponsored prescription drug collection event. , [phone], or [phone];
[2021-05-19] MEDS ORDERED: iohexoL-300 100 ML VIAL ONE (19:59)
[2021-05-19 20:06] LABS: BILIRUBIN,URINE NEGATIVE (NEGATIVE); GLUCOSE, URINE (UA) NEGATIVE (NEGATIVE); KETONES,URINE (UA) NEGATIVE (NEGATIVE); LEUKOCYTE ESTERASE, URINE NEGATIVE (NEGATIVE); NITRITE,URINE NEGATIVE (NEGATIVE); OCCULT BLOOD,URINE NEGATIVE (NEGATIVE); PH,URINE 5.5 PH (5.0-7.5); PROTEIN,URINE NEGATIVE (NEGATIVE); UROBILINOGEN,URINE 0.2 (NORMAL) E.U./dL (NORMAL)
[2021-05-19 20:07] LABS: CLARITY,URINE CLEAR (CLEAR)
[2021-05-19] MEDS ORDERED: iohexoL-300 100 ML VIAL IVP ONE (20:50)
--- NOTE | 2021-05-19 21:19 | CT Report ---
PROCEDURE: Abdomen/Pelvis W INDICATIONS: LLQ abd pain CONTRAST: IV CONTRAST: Isovue 300 ml: 100 PO CONTRAST: *NO PO CONTRAST TECHNIQUE: After the administration of nonionic contrast, 5 mm thick sections acquired from the diaphragms to th e symphysis. 5 mm thick coronal and sagittal reformats were acquired. For radiation dose reduction, the following was used: automated exposure control, adjustment of mA and/or kV according to patient size. COMPARISON: Prior abdominal ultrasound 05/13/2017. FINDINGS: Image quality: Excellent. ABDOMEN: Lung bases: Lung bases are clear. Heart size is normal. Solid organs: Liver and spleen are normal in size and enhancement. Gallbladder appears contracted Biliary system is non dilated. Pancreas enhances normally. No adrenal nodules. Kidneys demonstrate normal size and enhancement, without hydronephrosis but there is a "horseshoe kidney" morphology wit h union of the medial border of the right and left kidney seen on CT series 3 image 40.. Peritoneum and bowel: Bowel loops demonstrate normal wall thickness and caliber. No free fluid or a ir. Nodes and vessels: No retroperitoneal or mesenteric adenopathy by size criteria. Aorta and inferior vena cava are normal in size. Miscellaneous: No ventral hernias. PELVIS: Genitourinary: Bladder wall thickness is normal. Miscellaneous: No inguinal hernias or adenopathy. Bones: No suspicious bony lesions. No vertebral body compression fractures. IMPRESSION: 1. Food material is present within the nondistended stomach, and the gallbladder is contracted. No up per abdominal acute disease is found. 2. 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 No hydronephrosis or nephrolithiasis is present. No discrete vascular abn ormality is associated. 3. Over the right and left lower quadrants no area of inflammation is found. There is no suspicion fo r appendicitis or diverticulitis and no free fluid or free air is seen. A definite source of left low er quadrant pain is not identified. Reviewed by: Da Looney MD on 05/19/2021 9:18 PM PST Approved by: Da Looney MD on 05/19/2021 9:18 PM PST Station ID: [id number]
[2021-05-19] MEDS ORDERED: DICYCLOMINE 10 MG CAPSULE PO STA (21:22)
[2021-05-19] MEDS ORDERED: HYDROcod/ACETAM 5/325 MG TABLET PO STA (21:26)
[2021-05-19] MEDS ORDERED: MORPHINE 2 MG/ML CARPUJECT IVP STA (21:32)
== END 2021-05-19 21:39 | disposition home or self-care (01) ==
LOC: ED 18:49
DX: R10.32 Left lower quadrant pain (principal); F17.200 Nicotine dependence, unspecified, uncomplicated; Z66 Do not resuscitate
CPT/HCPCS: 36415; 74177; 80053; 81003; 83690; 85025; 96374; 99284; A9270; Q9967; 81001; 87086

== ENCOUNTER 2021-06-19 10:01 | Emergency (ER) | payer MEDICARE ==
[2021-06-19 10:32] LABS: BASOPHILS # (AUTO) 0.1 10^3/uL (0.0-0.1); BASOPHILS % (AUTO) 1.9 %; EOSINOPHILS # (AUTO) 0.1 10^3/uL (0.0-0.7); EOSINOPHILS % (AUTO) 2.3 %; HCT - HEMATOCRIT 46.6 % (42.0-52.0); HGB - HEMOGLOBIN 16.4 g/dL (14.0-18.0); LYMPHOCYTES # (AUTO) 1.2 10^3/uL (1.5-3.5); LYMPHOCYTES % (AUTO) 25.5 %; MEAN CORPUSCULAR HEMOGLOBIN 34.2 pg (27.0-31.0); MEAN CORPUSCULAR HGB CONC 35.2 g/dL (32.0-36.0); MEAN CORPUSCULAR VOLUME 97.3 fL (80.0-94.0); MEAN PLATELET VOLUME 8.1 fL (7.4-11.4); MONOCYTES # (AUTO) 0.8 10^3/uL (0.0-1.0); MONOCYTES % (AUTO) 15.7 %; NEUTROPHILS # (AUTO) 2.6 10^3/uL (1.5-6.6); NEUTROPHILS % (AUTO) 54.4 %; PLT - PLATELET COUNT 255 10^3/uL (130-450); RED BLOOD COUNT 4.79 10^6/uL (4.70-6.10); RED CELL DISTRIBUTION WIDTH 12.1 % (12.0-15.0); WHITE BLOOD COUNT 4.8 x10^3/uL (4.8-10.8)
[2021-06-19 10:46] LABS: ALBUMIN 4.2 g/dL (3.2-5.5); ALBUMIN/GLOBULIN RATIO 1.4 (1.0-2.2); BILIRUBIN,TOTAL 1.2 mg/dL (0.2-1.0); CALCIUM 9.2 mg/dL (8.5-10.3); CREATININE 0.8 mg/dL (0.6-1.2); POTASSIUM 3.7 mmol/L (3.5-5.0); TOTAL PROTEIN 7.1 g/dL (6.7-8.2)
[2021-06-19 11:42] LABS: BILIRUBIN,URINE NEGATIVE (NEGATIVE); GLUCOSE, URINE (UA) NEGATIVE (NEGATIVE); KETONES,URINE (UA) >=80 mg/dL (NEGATIVE); LEUKOCYTE ESTERASE, URINE NEGATIVE (NEGATIVE); NITRITE,URINE NEGATIVE (NEGATIVE); OCCULT BLOOD,URINE NEGATIVE (NEGATIVE); PH,URINE 6.5 PH (5.0-7.5); PROTEIN,URINE NEGATIVE (NEGATIVE); UROBILINOGEN,URINE 0.2 (NORMAL) E.U./dL (NORMAL)
[2021-06-19 11:51] LABS: CLARITY,URINE CLEAR (CLEAR)
[2021-06-19] MEDS ORDERED: THIAMINE INJ 100 MG, MAGNESIUM SULFATE 2 GM, MULTIVITAMIN 10 ML, FOLIC ACID INJ 1 MG in... IV ONE ×5 (12:11)
--- NOTE | 2021-06-19 12:17 | ED Physician Documentation ---
History of Present Illness - Stated complaint Stated Complaint: DIZZY/SOA - Chief complaint Chief Complaint: Abd Pain - History obtained from History obtained from: Patient - History of Present Illness Timing: How many days ago (3) - Additonal information Additional information: 46-year-old male with history of chronic back pain and alcohol use has developed elevated blood pressure and pain in the LUQ and left upper chest. He has alcohol use and this has decreased since his visits in April. He is still drinking but not 18 beers per day more like 6. He has never been treated for HTN. Review of Systems Constitutional: denies: Fever Eyes: denies: Decreased vision Ears: denies: Ear pain Nose: denies: Congestion Throat: denies: Sore throat Cardiac: reports: Chest pain / pressure. 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) - Present Medications Home Medications: Ambulatory Orders Medication Instructions Recorded Confirmed Albuterol Sulf [Ventolin Hfa 1 - 2 puffs INH Q4HR PRN #1 inhaler 05/20/19 06/19/21 Inhaler] Sennosides/Docusate Sodium 1 each PO QDAC PRN #30 tablet 05/07/21 06/19/21 [Senna-Docusate Sodium Tablet] Amitriptyline [Elavil] 10 mg PO QPM 06/19/21 06/19/21 Duloxetine HCl [Cymbalta] 60 mg PO DAILY 06/19/21 06/19/21 chlordiazePOXIDE [Librium] 25 mg PO Q6H PRN #11 cap 06/19/21 - Allergies Allergies/Adverse Reactions: Allergies Allergy/AdvReac Type Severity Reaction Status Date / Time amoxicillin [Amoxicillin] Allergy Intermediate Rash Verified 06/19/21 10:08 codeine [Codeine] Allergy Intermediate Rash Verified 06/19/21 10:08 Penicillins Allergy Intermediate Rash Verified 06/19/21 10:08 indomethacin AdvReac Unknown Emesis Verified 06/19/21 10:08 gabapentin AdvReac loss of Verified 06/19/21 10:08 bladder control, numbness, tingling in hands and fee - Social History Does the pt smoke?: Yes Smoking Status: Current every day smoker Does the pt drink ETOH?: Yes Does the pt have substance abuse?: Yes Substance Use and Type: Marijuana - Immunizations Immunizations are current?: Yes - POLST Patient has POLST: No POLST Status: DNR PD ED PE NORMAL - Vitals Vital signs reviewed: Yes (tachy and hypertensive ) - General General: Alert and oriented X 3, No acute distress, Well developed/nourished - HEENT HEENT: Atraumatic, PERRL, EOMI - Neck Neck: Supple, no meningeal sign, No bony TTP - Cardiac Cardiac: No murmur, Other (tachy to 110) - Respiratory Respiratory: No respiratory distress, Clear bilaterally - Abdomen Abdomen: Normal bowel sounds, Soft, Non tender, Non distended, No organomegaly - Back Back: No CVA TTP, No spinal TTP - Derm Derm: Normal color, Warm and dry, No rash - Extremities Extremities: No deformity, No edema - Neuro Neuro: Alert and oriented X 3, 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, No motor deficit, No sensory deficit, Normal speech Eye Opening: Spontaneous Motor: Obeys Commands Verbal: Oriented GCS Score: 15 - Psych Psych: Normal mood, Normal affect Results - Vitals Vitals: Vital Signs - 24 hr 06/19/21 06/19/21 06/19/21 10:11 12:30 13:00 Temperature 37 C 37.2 C Heart Rate 121 H 105 H 100 Respiratory 20 16 15 Rate Blood Pressure 165/106 H 171/106 H 138/97 H O2 Saturation 99 99 96 Oxygen O2 Source Room air - Labs Labs: Laboratory Tests 06/19/21 06/19/21 06/19/21 10:30 10:30 10:30 WBC 4.8 RBC 4.79 Hgb 16.4 Hct 46.6 MCV 97.3 H MCH 34.2 H MCHC 35.2 RDW 12.1 Plt Count 255 MPV 8.1 Neut # (Auto) 2.6 Lymph # (Auto) 1.2 L [place] # (Auto) 0.8 Eos # (Auto) 0.1 Baso # (Auto) 0.1 Absolute Nucleated RBC 0.00 Nucleated RBC % 0.0 Sodium 137 Potassium 3.7 Chloride 96 L Carbon Dioxide 22 Anion Gap 19.0 H BUN 8 Creatinine 0.8 Estimated GFR (MDRD) 104 Glucose 73 Calcium 9.2 Total Bilirubin 1.2 H AST 53 H ALT 49 Alkaline Phosphatase 59 Troponin I High Sens 5.2 Total Protein 7.1 Albumin 4.2 Globulin 2.9 Albumin/Globulin Ratio 1.4 Lipase 32 TSH Urine Color Urine Clarity Urine pH Ur Specific [place] Urine Protein Urine Glucose (UA) Urine Ketones Urine Occult Blood Urine Nitrite Urine Bilirubin Urine Urobilinogen Ur Leukocyte Esterase Ur Microscopic Review Urine Culture Comments Ethyl Alcohol 06/19/21 06/19/21 06/19/21 10:30 10:30 11:29 WBC RBC Hgb Hct MCV MCH MCHC RDW Plt Count MPV Neut # (Auto) Lymph # (Auto) [place] # (Auto) Eos # (Auto) Baso # (Auto) Absolute Nucleated RBC Nucleated RBC % Sodium Potassium Chloride Carbon Dioxide Anion Gap BUN Creatinine Estimated GFR (MDRD) Glucose Calcium Total Bilirubin AST ALT Alkaline Phosphatase Troponin I High Sens Total Protein Albumin Globulin Albumin/Globulin Ratio Lipase TSH 0.92 Urine Color YELLOW Urine Clarity CLEAR Urine pH 6.5 Ur Specific [place] 1.025 Urine Protein NEGATIVE Urine Glucose (UA) NEGATIVE Urine Ketones >=80 H Urine Occult Blood NEGATIVE Urine Nitrite NEGATIVE Urine Bilirubin NEGATIVE Urine Urobilinogen 0.2 (NORMAL) Ur Leukocyte Esterase NEGATIVE Ur Microscopic Review NOT INDICATED Urine Culture Comments NOT INDICATED Ethyl Alcohol 31.3 Procedures - IVC sono (time) 1003 Bedside IVC sono: IVC measures (cm) (0.87), Dehydration (est 1-2 liter deficit) PD MEDICAL DECISION MAKING - ED course Complexity details: reviewed results, re-evaluated patient, considered differential, d/w patient ED course: 46-year-old male with chronic back pain presents to the emergency department today with a chief complaint of elevated blood pressure and left upper quadrant abdominal pain and chest pain. He is feeling that his blood pressure is causing his symptoms. His administered a banana bag intravenously. He is confronted about his alcohol use and admits to maybe drinking more than he thought with a BA of 31 today with the last drink being 2pm yesterday. I suspect the patient's symptoms are mostly related to alcohol and alcohol withdrawal. Departure - Departure Disposition: 01 Home, Self Care Clinical Impression: Dehydration determined by examination, Alcohol abuse Hypertension Qualifiers: Hypertension type: unspecified Qualified Code(s): I10 - Essential (primary) hypertension Condition: Stable Instructions: ED Withdrawal Alcohol, ED Dehydration, ED Hypertension Poss Follow-Up: Evie Daly ARNP [Primary Care Provider] - Prescriptions: chlordiazePOXIDE [Librium] 25 mg PO Q6H PRN #11 cap PRN Reason: alcohol withdrawal symptoms Comments: Miguel A, today it looks like the elevated blood pressure and pulse you are having are likely related to alcohol withdrawal. When you have been drinking regu larly for more than 16 days in a row your body will readjust its nerve firing and when you take the alcohol away the nerves are still firing faster and this could cause a variety of symptoms. The recommendation is to discontinue the use of alcohol and to use the Librium to substitute for the alcohol. (e-scribed to [facility] in [place]) The first day you may need to take as many as 4 pills during the day. The second day 3 the 3rd day 2 the 4th day one. Today in the Emergency Department your blood pressure was elevated. This can happen from the stress of the visit itself, from a current illness or circumstance or from uncontrolled hypertension. If you take blood pressure medications take your usual mediations, have your blood pressure re-checked in an appropriate setting and follow up any elevation with your primary care doctor. Discharge Date/Time: 06/19/21 14:10
[2021-06-19 13:12] VITALS: BP 138/97
== END 2021-06-19 14:10 | disposition home or self-care (01) ==
LOC: ED 10:01
DX: I10 Essential (primary) hypertension (principal); E86.0 Dehydration; F10.10 Alcohol abuse, uncomplicated; F17.200 Nicotine dependence, unspecified, uncomplicated
CPT/HCPCS: 36415; 80053; 81003; 83690; 84443; 84484; 85025; 93005; 96365; 99283; 99284; G0480; J3411; 80320; 81001; 87086

== ENCOUNTER 2021-08-04 11:42 | Outpatient (CLI) | payer MEDICARE ==
--- NOTE | 2021-08-04 12:17 | XRAY Report ---
PROCEDURE: Lumbar Spine 2 View INDICATIONS: BACK PAIN, LUMBAR WITH RADICULOPATHY TECHNIQUE: 3 views of the lumbar spine were acquired. COMPARISON: 05/07/2021 Correlation is made with abdomen and pelvis CT, 05/19/2021 FINDINGS: Bones: 5 [id number] vertebrae are present. There is minimal retrolisthesis seen at L3-L4. No vertebral body compression fractures. No suspicious bony lesions. There is moderate disc space narrowing seen at L4-L5 and L5-S1. The spinal alignment and spinal curv ature are otherwise within normal limits. Lower lumbar spine facet arthropathy is seen. Soft tissues: Overlying bowel gas pattern is normal. No suspicious soft tissue calcifications. IMPRESSION: Focal lower lumbar spine degenerative changes are seen by plain film. If it would be helpful for clinical management decision making, please consider a dedicated, schedule d lumbar MRI for further evaluation (assuming that there is no contraindication). Reviewed by: Gabe Licona MD on 08/04/2021 11:16 AM [facility] Approved by: Gabe Licona MD on 08/04/2021 11:16 AM [facility] Station ID: [id number]
== END 2021-08-04 11:43 | disposition home or self-care (01) ==
LOC: DI.N 11:42
PROVIDERS: ATTEND Registered Nurse
DX: M47.816 Spondylosis without myelopathy or radiculopathy, lumbar region (principal); M47.817 Spondylosis without myelopathy or radiculopathy, lumbosacral region

== ENCOUNTER 2021-08-05 18:18 | Emergency (ER) | payer MEDICARE ==
--- OUTSIDE RECORDS SUMMARY | 2021-08-05 18:53 | EXTERNAL MEDICAL SUMMARY RPT | Continuity of Care Document ---
:1975 Author Organization [facility] Address [address] [place] [address] Phone Care Team Providers Name Role Phone [place] Unavailable Unavailable Allergies No information. Encounters No information. Medications No information. Problems Procedures date description facility [id number] [facility] Results No information. Vital Signs date measurement value source [id number] weight_standard 145 lb [id number] weight_metric 65.77 kg [id number] temperature_standard 97.9 F [id number] temperature_metric 36.61 C [id number] height_standard 72 in [id number] height_metric 182.88 cm [id number] BMI 19.6 kg/m2
[2021-08-05] MEDS: SODIUM CHLORIDE 0.9% 1,000 ML IV STA (18:56)
[2021-08-05 19:06] LABS: BASOPHILS # (AUTO) 0.1 10^3/uL (0.0-0.1); BASOPHILS % (AUTO) 0.6 %; EOSINOPHILS % (AUTO) 0.1 %; HCT - HEMATOCRIT 48.9 % (42.0-52.0); HGB - HEMOGLOBIN 16.9 g/dL (14.0-18.0); MEAN CORPUSCULAR HEMOGLOBIN 33.9 pg (27.0-31.0); MEAN CORPUSCULAR HGB CONC 34.6 g/dL (32.0-36.0); MEAN CORPUSCULAR VOLUME 98.2 fL (80.0-94.0); MEAN PLATELET VOLUME 8.4 fL (7.4-11.4); MONOCYTES # (AUTO) 0.6 10^3/uL (0.0-1.0); MONOCYTES % (AUTO) 6.3 %; NEUTROPHILS % (AUTO) 82.7 %; PLT - PLATELET COUNT 297 10^3/uL (130-450); RED BLOOD COUNT 4.98 10^6/uL (4.70-6.10); RED CELL DISTRIBUTION WIDTH 13.1 % (12.0-15.0); WHITE BLOOD COUNT 9.6 x10^3/uL (4.8-10.8)
[2021-08-05 19:08] LABS: VBG HCO3 14.8 mmol/L (23-28); VBG PCO2 32.2 mmHg (41-51); VBG PH 7.279 (7.31-7.41); VBG PO2 48.9 mmHg (25-47)
[2021-08-05 19:09] LABS: VBG BASE EXCESS -10.5 mmol/L (-2 - +2); VBG OXYGEN SATURATION 82.8 % (60-80); VBG TOTAL CO2 15.7 mmol/L (24-29)
[2021-08-05 19:16] LABS: ALBUMIN 5.1 g/dL (3.2-5.5); ALBUMIN/GLOBULIN RATIO 1.7 (1.0-2.2); BILIRUBIN,TOTAL 1.1 mg/dL (0.2-1.0); CALCIUM 9.6 mg/dL (8.5-10.3); CREATININE 1.1 mg/dL (0.6-1.2); TOTAL PROTEIN 8.1 g/dL (6.7-8.2)
--- NOTE | 2021-08-05 19:26 | ED Physician Documentation ---
PD HPI NVD - Stated complaint Stated Complaint: VOMIT/BLOOD - Chief complaint Chief Complaint: Abd Pain - History obtained from History obtained from: Patient - Additonal information Additional information: 46-year-old gentleman with history of fibromyalgia, sciatica and alcoholism. He also has a history of very occasional migraines. Developed a gradual onset headache frontal and occipital over 3 hours today with light sensitivity and vomiting typical of his prior migraines. It is associated with vomiting and the last few episodes of vomit have been vomit mixed with blood but not all blood. He is sensitive to NSAIDs because of gastric complaints. States no alcohol today but he was drinking yesterday. No fevers or neck stiffness. 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: Other (left testicular torsion) - Present Medications Home Medications: Ambulatory Orders Medication Instructions Recorded Confirmed Albuterol Sulf [Ventolin Hfa 1 - 2 puffs INH Q4HR PRN #1 inhaler 05/20/19 06/19/21 Inhaler] Sennosides/Docusate Sodium 1 each PO QDAC PRN #30 tablet 05/07/21 06/19/21 [Senna-Docusate Sodium Tablet] Amitriptyline [Elavil] 10 mg PO QPM 06/19/21 06/19/21 Duloxetine HCl [Cymbalta] 60 mg PO DAILY 06/19/21 06/19/21 chlordiazePOXIDE [Librium] 25 mg PO Q6H PRN #11 cap 06/19/21 LORazepam [Ativan] 1 mg PO TID PRN #12 tablet 08/05/21 Omeprazole 40 mg PO DAILY #30 cap 08/05/21 - Allergies Allergies/Adverse Reactions: Allergies Allergy/AdvReac Type Severity Reaction Status Date / Time amoxicillin [Amoxicillin] Allergy Intermediate Rash Verified 06/19/21 10:08 codeine [Codeine] Allergy Intermediate Rash Verified 06/19/21 10:08 Penicillins Allergy Intermediate Rash Verified 06/19/21 10:08 indomethacin AdvReac Unknown Emesis Verified 06/19/21 10:08 gabapentin AdvReac loss of Verified 06/19/21 10:08 bladder control, numbness, tingling in hands and fee - Social History Does the pt smoke?: Yes Smoking Status: Current every day smoker Does the pt drink ETOH?: Yes Does the pt have substance abuse?: Yes - Immunizations Immunizations are current?: Yes - POLST Patient has POLST: No POLST Status: DNR PD ED PE NORMAL - Vitals Vital signs reviewed: Yes - General General: Alert and oriented X 3, Other (He appears uncomfortable and is wearing sunglasses) - HEENT HEENT: PERRL, EOMI - Neck Neck: Supple, no meningeal sign, No bony TTP - Cardiac Cardiac: No murmur, Other (Moderate tachycardia resting tachycardia and slight tachypnea, clear lungs) - Respiratory Respiratory: No respiratory distress - Abdomen Abdomen: Soft, Non tender - Back Back: No CVA TTP, No spinal TTP - Derm Derm: Normal color, Warm and dry - Neuro Neuro: Alert and oriented X 3, Normal speech - Psych Psych: Normal mood, Normal affect Results - Vitals Vitals: Vital Signs - 24 hr 08/05/21 08/05/21 08/05/21 18:24 19:06 19:12 Temperature 36.1 C L 37.6 C Heart Rate 122 H 102 H Respiratory 28 H 14 Rate Blood Pressure 159/92 H 178/100 H O2 Saturation 98 99 08/05/21 20:49 Temperature Heart Rate 99 Respiratory 20 Rate Blood Pressure 166/96 H O2 Saturation 97 Oxygen O2 Source Room air - Labs Labs: Laboratory Tests 08/05/21 08/05/21 08/05/21 18:55 18:55 18:55 WBC 9.6 RBC 4.98 Hgb 16.9 Hct 48.9 MCV 98.2 H MCH 33.9 H MCHC 34.6 RDW 13.1 Plt Count 297 MPV 8.4 Neut # (Auto) 8.0 H Lymph # (Auto) 1.0 L [place] # (Auto) 0.6 Eos # (Auto) 0.0 Baso # (Auto) 0.1 Absolute Nucleated RBC 0.00 Nucleated RBC % 0.0 VBG pH 7.279 L VBG pCO2 32.2 L VBG pO2 48.9 H VBG HCO3 14.8 L VBG Total CO2 15.7 L VBG O2 Saturation 82.8 H VBG Base Excess -10.5 L Sodium 138 Potassium 4.0 Chloride 95 L Carbon Dioxide 16 L Anion Gap 27.0 H BUN 19 Creatinine 1.1 Estimated GFR (MDRD) 72 L Glucose 75 Calcium 9.6 Total Bilirubin 1.1 H AST 52 H ALT 32 Alkaline Phosphatase 75 Total Protein 8.1 Albumin 5.1 Globulin 3.0 Albumin/Globulin Ratio 1.7 Ethyl Alcohol Serum Ketones 08/05/21 18:55 WBC RBC Hgb Hct MCV MCH MCHC RDW Plt Count MPV Neut # (Auto) Lymph # (Auto) [place] # (Auto) Eos # (Auto) Baso # (Auto) Absolute Nucleated RBC Nucleated RBC % VBG pH VBG pCO2 VBG pO2 VBG HCO3 VBG Total CO2 VBG O2 Saturation VBG Base Excess Sodium Potassium Chloride Carbon Dioxide Anion Gap BUN Creatinine Estimated GFR (MDRD) Glucose Calcium Total Bilirubin AST ALT Alkaline Phosphatase Total Protein Albumin Globulin Albumin/Globulin Ratio Ethyl Alcohol 50.2 Serum Ketones SMALL H PD MEDICAL DECISION MAKING - ED course ED course: 46-year-old gentleman with history of alcoholism and migraines presents with a headache that is not really concerning from a historical perspective for serious etiology. It does sound migrainous. After the administration of Reglan and Benadryl he did not really get much relief but after the administration of Haldol and lorazepam he had actually very good relief. We did labs tonight since he had been vomiting a lot and there was some blood streaks in the vomiting. His labs were notable for modest acidosis that is likely related to alcoholic ketoacidosis. He still has a measurable amount of alcohol in his system today and he says he has not drank since yesterday. I discussed this with him and he admits that he probably drank enough yesterday that it carried over into today's labs. We discussed his mild transaminitis and the need to quit drinking and he is interested in quitting drinking. He will be prescribed a limited number of lorazepam to help with withdrawal symptoms. He understands that he cannot drink and take lorazepam. He was feeling much better at discharge after 2 L of IV fluids and the above-mentioned medications. He passed an oral challenge. He understands he cannot drink tonight nor while taking helen azepam. Departure - Departure Disposition: 01 Home, Self Care Clinical Impression: Alcoholic ketoacidosis Migraine headache Qualifiers: Migraine type: unspecified Status migrainosus presence: with status migrainosus Intractability: not intractable Qualified Code(s): G43.901 - Migraine, unspecified, not intractable, with status migrainosus Condition: Good Record reviewed to determine appropriate education?: Yes Instructions: ED Alcohol Abuse, ED Headache Migraine Prescriptions: LORazepam [Ativan] 1 mg PO TID PRN #12 tablet PRN Reason: Anxiety Omeprazole 40 mg PO DAILY #30 cap Comments: You were seen today for a migraine headache, and we found that she also had a mild case of what is known as alcoholic ketoacidosis which is a starvation state from severe alcohol and this is him. It causes dehydration and, as you now know, causes you to feel really bad. It is imperative that you do quit drinking. I am prescribing a limited number of lorazepam to help with withdrawal symptoms. I sent this prescription as well as a prescription for an antacid to help with stomach acid to [facility] in [place]. Call your doctor to arrange a follow-up appointment, make the next available appointment. In the interim, return anytime if worse or if new symptoms develop. Do not drink tonight or drive tonight. Do not drink at all frankly. Do not drive while taking lorazepam.
[2021-08-05 19:28] LABS: KETONES, SERUM (ACETEST) SMALL (NEGATIVE)
[2021-08-05] MEDS: diphenhydrAMINE INJ 50 MG/ML VIAL IVP STA (19:29)
[2021-08-05] MEDS: METOCLOPRAMIDE 10 MG/2 ML VIAL IVP STA (19:31)
[2021-08-05 19:36] LABS: ETOH - ETHANOL 50.2 mg/dL
[2021-08-05] MEDS: LACTATED RINGERS 1,000 ML IV STA (19:51)
[2021-08-05] MEDS: HALOPERIDOL 5 MG/ML VIAL IVP ONE (20:16)
[2021-08-05] MEDS: LORazepam 2 MG/ML VIAL IVP STA (20:17)
[2021-08-05 20:49] VITALS: BP 166/96
[2021-08-05] MEDS: PANTOPRAZOLE 40 MG TABLET PO STA (21:07)
[2021-08-05] MEDS: ONDANSETRON ODT 4 MG Prepack 2 TL STA (21:07)
== END 2021-08-05 21:09 | disposition home or self-care (01) ==
LOC: ED 18:18
DX: E87.2 Acidosis (principal); G43.901 Migraine, unspecified, not intractable, with status migrainosus; F17.200 Nicotine dependence, unspecified, uncomplicated
CPT/HCPCS: 36415; 80053; 82009; 82803; 85025; 96361; 96374; 96375; 99284; 99285; A9270; G0480; J1200; J2060; J2765; J7120; 80320

== ENCOUNTER 2021-08-21 08:00 | Outpatient (CLI) | payer MEDICARE ==
--- NOTE | 2021-08-21 18:08 | XRAY Report ---
PROCEDURE: Hand 3 View RT INDICATIONS: CONTUSION OF R HAND TECHNIQUE: 3 views of the hand(s) acquired. COMPARISON: None. FINDINGS: Bones: No fractures or dislocations. No suspicious bony lesions. Soft tissues: No suspicious soft tissue calcifications. IMPRESSION: No acute osseous abnormalities. Reviewed by: Lydia García MD on 08/21/2021 6:06 PM PDT Approved by: Lydia García MD on 08/21/2021 6:06 PM PDT Station ID: [id number]
== END 2021-08-21 23:59 | disposition home or self-care (01) ==
LOC: DI.N 08:00
PROVIDERS: ATTEND Physician Assistant Medical
DX: S62.91XA Unspecified fracture of right hand, initial encounter for closed fracture (principal); S60.221A Contusion of right hand, initial encounter

== ENCOUNTER 2022-03-15 12:28 | Outpatient (CLI) | payer MEDICARE | END 2022-03-15 12:29 | disposition critical access hospital (66) | LOC: EMS 12:28 | DX: R55 Syncope and collapse (principal); R11.2 Nausea with vomiting, unspecified; Z98.890 Other specified postprocedural states | CPT/HCPCS: A0425; A0427 ==

== ENCOUNTER 2022-03-15 13:07 | Emergency (ER) | payer MEDICARE ==
[2022-03-15] MEDS ORDERED: SODIUM CHLORIDE 0.9% 1,000 ML IV STA ×2 (13:17)
--- NOTE | 2022-03-15 13:21 | ED Physician Documentation ---
PD HPI SYNCOPE - Stated complaint Stated Complaint: SYNCOPE - Chief complaint Chief Complaint: Neuro - History obtained from History obtained from: Patient - History of Present Illness Witnessed: Witnessed Timing - onset: Today Preceding symptoms: Vision changes (Dimming vision), Light headed Associated symptoms: No: Seizure, Incontinant of urine, Incontinant of stool, Headache, Chest pain, Palpitations, Diaphoresis, Dyspnea, Nausea / vomiting, Abdominal pain Injury occurred: None Pain level max: 6 Pain level now: 5 - Additional information Additional information: Patient is a 47-year-old male who presents to the emergency department with a syncopal event today. He is states that he has a longstanding history of passing out. He states that he had back surgery yesterday at [facility]. He is unsure of the procedure but thinks it may have been a discectomy. No fevers. No chest pain. No shortness of breath. He states his was changing the dressing today when he passed out. He thinks he may have been unconscious for 30 seconds to 1 minute. He felt lightheaded dizzy and vision going dim prior to the event. No chest pain. No palpitations. Has had extensive work-ups in the past with no cause found. He states he used to drink heavily, but is not currently intaking any alcohol. He does smoke cigarettes and uses marijuana. He is also on oxycodone and Flexeril at home Review of Systems Ten Systems: 10 systems reviewed and negative Constitutional: denies: Fever, Chills Nose: denies: Rhinorrhea / runny nose, Congestion Throat: denies: Sore throat Cardiac: denies: Chest pain / pressure, Palpitations Respiratory: denies: Cough, Wheezing GI: denies: Nausea, Vomiting, Diarrhea Skin: denies: Rash Musculoskeletal: denies: Neck pain, Back pain Neurologic: denies: Seizure PD PAST MEDICAL HISTORY - Past Medical History Cardiovascular: None Respiratory: Asthma, Pneumonia Neuro: Migraines Endocrine/Autoimmune: None GI: GERD, Ulcers, Other : None HEENT: None Psych: Depression, Post traumatic stress disorder Musculoskeletal: Fibromyalgia, Chronic back pain Derm: None - Past Surgical History 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 (left testicular torsion) - Present Medications Home Medications: Ambulatory Orders Medication Instructions Recorded Confirmed Albuterol Sulf [Ventolin Hfa 1 - 2 puffs INH Q4HR PRN #1 inhaler 05/20/19 06/19/21 Inhaler] Sennosides/Docusate Sodium 1 each PO QDAC PRN #30 tablet 05/07/21 06/19/21 [Senna-Docusate Sodium Tablet] Amitriptyline [Elavil] 10 mg PO QPM 06/19/21 06/19/21 Duloxetine HCl [Cymbalta] 60 mg PO DAILY 06/19/21 06/19/21 chlordiazePOXIDE [Librium] 25 mg PO Q6H PRN #11 cap 06/19/21 LORazepam [Ativan] 1 mg PO TID PRN #12 tablet 08/05/21 Omeprazole 40 mg PO DAILY #30 cap 08/05/21 - Allergies Allergies/Adverse Reactions: Allergies Allergy/AdvReac Type Severity Reaction Status Date / Time amoxicillin [Amoxicillin] Allergy Intermediate Rash Verified 03/15/22 13:14 codeine [Codeine] Allergy Intermediate Rash Verified 03/15/22 13:14 Penicillins Allergy Intermediate Rash Verified 03/15/22 13:14 indomethacin AdvReac Unknown Emesis Verified 03/15/22 13:14 gabapentin AdvReac loss of Verified 03/15/22 13:14 bladder control, numbness, tingling in hands and fee - Social History Does the pt smoke?: Yes Smoking Status: Current every day smoker Does the pt drink ETOH?: Yes Does the pt have substance abuse?: Yes - Immunizations Immunizations are current?: Yes - POLST Patient has POLST: No POLST Status: DNR PD ED PE NORMAL - Vitals Vital signs reviewed: Yes - General General: Alert and oriented X 3, No acute distress, Well developed/nourished - HEENT HEENT: Moist mucous membranes - Neck Neck: Supple, no meningeal sign - Cardiac Cardiac: RRR, Strong equal pulses - Respiratory Respiratory: No respiratory distress, Clear bilaterally - Abdomen Abdomen: Soft, Non tender, Non distended - Back Back: No spinal TTP, Other (Incision is clean dry and intact) - Derm Derm: Warm and dry - Extremities Extremities: No edema - Neuro Neuro: Alert and oriented X 3 - Psych Psych: Normal mood, Normal affect Results - Vitals Vitals: Vital Signs - 24 hr 03/15/22 03/15/22 03/15/22 13:11 13:30 15:02 Temperature 36.6 C Heart Rate 85 88 79 Respiratory 16 16 19 Rate Blood Pressure 124/83 H 124/43 L 132/87 H O2 Saturation 99 100 100 Oxygen O2 Source Room air - EKG (time done) 1327 Rate: Rate (enter#) (82) Rhythm: NSR [place]: Normal Intervals: Normal GA QRS: Normal Ischemia: Normal ST segments - Labs Labs: Laboratory Tests 03/15/22 03/15/22 03/15/22 13:25 13:25 15:00 WBC 8.1 RBC 3.78 L Hgb 12.3 L Hct 37.3 L MCV 98.7 H MCH 32.5 H MCHC 33.0 RDW 12.6 Plt Count 175 MPV 8.5 Neut # (Auto) 5.5 Lymph # (Auto) 1.7 [place] # (Auto) 0.7 Eos # (Auto) 0.2 Baso # (Auto) 0.1 Absolute Nucleated RBC 0.00 Nucleated RBC % 0.0 Sodium 138 Potassium 3.7 Chloride 102 Carbon Dioxide 29 Anion Gap 7.0 BUN 8 Creatinine 0.8 Estimated GFR (MDRD) 104 Glucose 89 Calcium 8.3 L Total Bilirubin 0.5 AST 11 ALT 11 Alkaline Phosphatase 44 Total Protein 5.7 L Albumin 3.4 Globulin 2.3 Albumin/Globulin Ratio 1.5 Urine Color YELLOW Urine Clarity CLEAR Urine pH 6.5 Ur Specific [place] 1.010 Urine Protein NEGATIVE Urine Glucose (UA) NEGATIVE Urine Ketones NEGATIVE Urine Occult Blood NEGATIVE Urine Nitrite NEGATIVE Urine Bilirubin NEGATIVE Urine Urobilinogen 0.2 (NORMAL) Ur Leukocyte Esterase NEGATIVE Ur Microscopic Review NOT INDICATED Urine Culture Comments NOT INDICATED Urine Opiates Screen NEGATIVE Ur Oxycodone Screen POSITIVE H Urine Methadone Screen NEGATIVE Ur Propoxyphene Screen NEGATIVE Ur Barbiturates Screen NEGATIVE Ur Tricyclics Screen NEGATIVE Ur Phencyclidine Scrn NEGATIVE Ur Amphetamine Screen NEGATIVE U Methamphetamines Scrn NEGATIVE U Benzodiazepines Scrn NEGATIVE Urine Cocaine Screen NEGATIVE U Cannabinoids Screen POSITIVE H Ethyl Alcohol < 5.0 - Rads (name of study) Chest x-ray Radiology: Final report received, EMP read contemporaneously, See rad report (No acute abnormality) PD MEDICAL DECISION MAKING - ED course Complexity details: reviewed results, re-evaluated patient, considered differential, d/w patient, d/w family ED course: 47-year-old male with syncope at home. He has had multiple episodes of syncope in the past. No significant findings on chest x-ray, EKG or laboratory testing. Feels better after IV fluids. No arrhythmias on telemetry. He has had multiple work-ups including echocardiograms in the past. We will continue his current care and have him follow-up with his doctor for further care. Patient counseled regarding signs and symptoms for which I believe and urgent re- evaluation would be necessary. Patient with good understanding of and agreement to plan and is comfortable going home at this time This document was made in part using voice recognition software. While efforts are made to proofread this document, sound alike and grammatical errors may occur. No evidence of PE, ACS, arrhythmia Departure - Departure Disposition: 01 Home, Self Care Clinical Impression: Syncope Qualifiers: Syncope type: unspecified Qualified Code(s): R55 - Syncope and collapse Condition: Good Instructions: ED Fainting Unkn Cause Follow-Up: your,doctor in 1 week [Other] Comments: Please continue your current medications at home. Please follow-up with your doctor for further care. Make sure you are drinking plenty of water at home. Return if you worsen. Discharge Date/Time: 03/15/22 15:43
[2022-03-15 13:30] LABS: BASOPHILS # (AUTO) 0.1 10^3/uL (0.0-0.1); BASOPHILS % (AUTO) 0.6 %; EOSINOPHILS # (AUTO) 0.2 10^3/uL (0.0-0.7); EOSINOPHILS % (AUTO) 2.2 %; HCT - HEMATOCRIT 37.3 % (42.0-52.0); HGB - HEMOGLOBIN 12.3 g/dL (14.0-18.0); LYMPHOCYTES # (AUTO) 1.7 10^3/uL (1.5-3.5); LYMPHOCYTES % (AUTO) 20.5 %; MEAN CORPUSCULAR HEMOGLOBIN 32.5 pg (27.0-31.0); MEAN CORPUSCULAR VOLUME 98.7 fL (80.0-94.0); MEAN PLATELET VOLUME 8.5 fL (7.4-11.4); MONOCYTES # (AUTO) 0.7 10^3/uL (0.0-1.0); MONOCYTES % (AUTO) 8.7 %; NEUTROPHILS # (AUTO) 5.5 10^3/uL (1.5-6.6); NEUTROPHILS % (AUTO) 67.9 %; PLT - PLATELET COUNT 175 10^3/uL (130-450); RED BLOOD COUNT 3.78 10^6/uL (4.70-6.10); RED CELL DISTRIBUTION WIDTH 12.6 % (12.0-15.0); WHITE BLOOD COUNT 8.1 x10^3/uL (4.8-10.8)
--- OUTSIDE RECORDS SUMMARY | 2022-03-15 13:31 | EXTERNAL MEDICAL SUMMARY RPT | Continuity of Care Document ---
:1975 Author Organization [place] Address [address] [place] [address] Phone Care Team Providers Name Role Phone Unavailable Unavailable Unavailable Evie Martin Unavailable Unavailable Allergies No information. Encounters No information. Functional Status No information. Immunizations No information. Medications date description facility [id number]+0000 lorazepam All [id number]+0000 lorazepam All [id number]+0000 oxycodone-acetaminophen All [id number]+0000 oxycodone-acetaminophen All [id number]+0000 lorazepam All [id number]+0000 lorazepam All [id number]+0000 omeprazole magnesium All [id number]+0000 omeprazole magnesium All [id number]+0000 lorazepam All [id number]+0000 lorazepam All [id number]+0000 pantoprazole All [id number]+0000 pantoprazole All [id number]+0000 sennosides All [id number]+0000 sennosides All [id number]+0000 sennosides All [id number]+0000 sennosides All [id number]+0000 omeprazole magnesium All [id number]+0000 omeprazole magnesium All [id number]+0000 pantoprazole All [id number]+0000 pantoprazole All [id number]+0000 sennosides All [id number]+0000 sennosides All [id number]+0000 pantoprazole All [id number]+0000 pantoprazole All [id number]+0000 omeprazole magnesium All [id number]+0000 omeprazole magnesium All [id number]+0000 lorazepam All [id number]+0000 lorazepam All [id number]+0000 pantoprazole All [id number]+0000 pantoprazole All [id number]+0000 oxycodone-acetaminophen All [id number]+0000 oxycodone-acetaminophen All +0000 oxycodone-acetaminophen All [id number]+0000 oxycodone-acetaminophen All [id number]+0000 oxycodone-acetaminophen All [id number]+0000 oxycodone-acetaminophen All Problems No information. Procedures date description facility +0000 Visit Code Hold All Results/Labs No information. Social History date description facility +0000 Former smoker All Vital Signs date measurement value units +0000 BMI BMI 19.44 kg/m2 +0000 BP_diastolic BP_diastolic 80 mmHg +0000 BP_systolic BP_systolic 122 mmHg +0000 heart_rate heart_rate 93 /min +0000 height_metric height_metric 177.8 cm +0000 height_standard height_standard 70 in [id number]+0000 respiration_rate respiration_rate 16 /min +0000 temperature_metric temperature_metric 36.78 C +0000 temperature_standard temperature_standard 9 8.2 F +0000 weight_metric weight_metric 61.23 kg [id number]+0000 weight_standard weight_standard 135 lb
[2022-03-15 13:44] LABS: ALBUMIN 3.4 g/dL (3.2-5.5); ALBUMIN/GLOBULIN RATIO 1.5 (1.0-2.2); ALKALINE PHOSPHATASE 44 IU/L (42-121); ALT ALANINE AMINOTRANSFERASE 11 IU/L (10-60); AST ASPARTATE AMINOTRANSFERASE 11 IU/L (10-42); BILIRUBIN,TOTAL 0.5 mg/dL (0.2-1.0); BUN - BLOOD UREA NITROGEN 8 mg/dL (6-20); CALCIUM 8.3 mg/dL (8.5-10.3); CARBON DIOXIDE - CO2 29 mmol/L (21-32); CHLORIDE 102 mmol/L (101-111); CREATININE 0.8 mg/dL (0.6-1.2); ETOH - ETHANOL < 5.0 mg/dL; GFR - MDRD 104 (>89); GLUCOSE 89 mg/dL (70-100); POTASSIUM 3.7 mmol/L (3.5-5.0); SODIUM 138 mmol/L (135-145); TOTAL PROTEIN 5.7 g/dL (6.7-8.2)
--- NOTE | 2022-03-15 13:54 | XRAY Report ---
PROCEDURE: Chest 1 View X-Ray INDICATIONS: syncope TECHNIQUE: One view of the chest was acquired. COMPARISON: Chest x-ray 07/13/2020 FINDINGS: Surgical changes and devices: None. Lungs and pleura: No pleural effusions or pneumothorax. Lungs are clear. Mediastinum: Mediastinal contours appear normal. Heart size is normal. Bones and chest wall: No suspicious bony lesions. Overlying soft tissues appear unremarkable. IMPRESSION: No acute pulmonary process. Reviewed by: Anamika Silver MD on 03/15/2022 1:53 PM PDT Approved by: Anamika Silver MD on 03/15/2022 1:53 PM PDT Station ID: [id number]
[2022-03-15] MEDS ORDERED: oxyCODONE 5 MG TABLET PO STA (14:36)
[2022-03-15 15:05] VITALS: BP 132/87
[2022-03-15 15:05] LABS: MUDS CUTOFF CONCENTRATIONS CUTOFF CONC BELOW:
[2022-03-15 15:07] LABS: BILIRUBIN,URINE NEGATIVE (NEGATIVE); GLUCOSE, URINE (UA) NEGATIVE (NEGATIVE); KETONES,URINE (UA) NEGATIVE (NEGATIVE); LEUKOCYTE ESTERASE, URINE NEGATIVE (NEGATIVE); NITRITE,URINE NEGATIVE (NEGATIVE); OCCULT BLOOD,URINE NEGATIVE (NEGATIVE); PH,URINE 6.5 PH (5.0-7.5); PROTEIN,URINE NEGATIVE (NEGATIVE); UROBILINOGEN,URINE 0.2 (NORMAL) E.U./dL (NORMAL)
[2022-03-15 15:11] LABS: CLARITY,URINE CLEAR (CLEAR)
[2022-03-15 15:18] LABS: AMPHETAMINE SCREEN,URINE NEGATIVE (NEGATIVE); BARBITURATE SCREEN,UR NEGATIVE (NEGATIVE); BENZODIAZEPINES SCREEN, URINE NEGATIVE (NEGATIVE); COCAINE SCREEN URINE NEGATIVE (NEGATIVE); METHADONE SCREEN, URINE NEGATIVE (NEGATIVE); METHAMPHETAMINES SCREEN, URINE NEGATIVE (NEGATIVE); OPIATE SCREEN, URINE NEGATIVE (NEGATIVE); OXYCODONE SCREEN, URINE POSITIVE (NEGATIVE); PROPOXYPHENE SCREEN, URINE NEGATIVE (NEGATIVE); THC CANNABINOID SCREEN, URINE POSITIVE (NEGATIVE); TRICYCLIC ANTIDEPRESSANT,URINE NEGATIVE (NEGATIVE)
== END 2022-03-15 15:43 | disposition home or self-care (01) ==
LOC: EDUNIT# → ED 13:07
DX: R55 Syncope and collapse (principal); Z98.890 Other specified postprocedural states; F17.210 Nicotine dependence, cigarettes, uncomplicated
CPT/HCPCS: 36415; 71045; 80053; 80306; 81003; 85025; 93005; 99284; A9270; G0480; 80320; 81001; 87086

== ENCOUNTER 2022-07-30 19:40 | Emergency (ER) | payer MEDICARE ==
[2022-07-30] MEDS ORDERED: KETOROLAC 30 MG/ML VIAL IM STA (21:18)
--- NOTE | 2022-07-30 21:21 | ED Physician Documentation ---
PD HPI HEENT - Stated complaint Stated Complaint: SOA,CONGESTION,FEVER - Chief complaint Chief Complaint: Heent - Additional information Additional information: 47-year-old man with history of chronic pain presents with left upper molar pain for the past 3 days after breaking it. Also with subjective fever and chills, shortness of breath, nasal congestion, and sore throat all starting after breaking the tooth. Review of Systems Constitutional: denies: Fever Ears: denies: Ear pain Nose: reports: Congestion Throat: reports: Dental pain / toothache, Sore throat Respiratory: reports: Cough (nonproductive). denies: Dyspnea GI: reports: Nausea. 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 (left testicular torsion) - Present Medications Home Medications: Ambulatory Orders Medication Instructions Recorded Confirmed Oxycodone HCl/Acetaminophen 1 each PO QID 07/30/22 07/30/22 [Percocet 7.5-325 mg Tablet] - Allergies Allergies/Adverse Reactions: Allergies Allergy/AdvReac Type Severity Reaction Status Date / Time amoxicillin [Amoxicillin] Allergy Intermediate Rash Verified 07/30/22 19:50 codeine [Codeine] Allergy Intermediate Rash Verified 07/30/22 19:50 Penicillins Allergy Intermediate Rash Verified 07/30/22 19:50 indomethacin AdvReac Unknown Emesis Verified 07/30/22 19:50 gabapentin AdvReac loss of Verified 07/30/22 19:50 bladder control, numbness, tingling in hands and fee - Social History Does the pt smoke?: Yes Smoking Status: Current every day smoker Does the pt drink ETOH?: Yes Does the pt have substance abuse?: Yes - Immunizations Immunizations are current?: Yes - POLST Patient has POLST: No POLST Status: DNR PD ED PE NORMAL - Vitals Vital signs reviewed: Yes - General General: Alert and oriented X 3, No acute distress, Well developed/nourished - HEENT HEENT: Atraumatic, PERRL, EOMI, Moist mucous membranes, Pharynx benign, Other (poor dentition, multiple caries and missing teeth) - Neck Neck: Supple, no meningeal sign - Cardiac Cardiac: RRR - Respiratory Respiratory: No respiratory distress, Clear bilaterally - Abdomen Abdomen: Non tender, Non distended - Derm Derm: Normal color, Warm and dry - Psych Psych: Normal mood, Normal affect Results - Vitals Vitals: Vital Signs - 24 hr 07/30/22 19:46 Temperature 36.8 C Heart Rate 88 Respiratory 16 Rate Blood Pressure 153/97 H O2 Saturation 99 Oxygen O2 Source Room air PD Medical Decision Making - ED course ED course: 47yM p/w dental pain and uri sx X 3 days. no swelling to dental area. no suspicion for ludwigs. lungs ctab. upper airways moving air well. advised symptomatic care. IM toradol given with improvement in symptoms. referral to emergency dental provided. Departure - Departure Disposition: 01 Home, Self Care Clinical Impression: Pain, dental Condition: Good Instructions: ED Tooth Pain Follow-Up: MARICHUY LAZO [Physician No Access] - Comments: You were seen in the emergency department for dental pain and viral upper respiratory infection symptoms. Please follow-up with emergency dental in the morning. Stay well-hydrated and get lots of rest. Return to the emergency department for new or worsening symptoms or other concerns.
[2022-07-30 21:37] VITALS: BP 148/90
== END 2022-07-30 21:36 | disposition home or self-care (01) ==
LOC: ED 19:40
DX: K08.89 Other specified disorders of teeth and supporting structures (principal); F17.200 Nicotine dependence, unspecified, uncomplicated
CPT/HCPCS: 96372; 99283

== ENCOUNTER 2022-08-16 10:28 | Outpatient (CLI) | payer MEDICARE ==
[2022-08-16] MEDS ORDERED: iohexoL-300 100 ML VIAL ONE (10:38)
[2022-08-16] MEDS ORDERED: iohexoL-300 100 ML VIAL IVP ONE (11:05)
--- NOTE | 2022-08-16 12:03 | CT Report ---
PROCEDURE: SOFT TISSUE NECK W INDICATIONS: OROPHARYNGEAL LESION CONTRAST: 100ml omni 300 TECHNIQUE: After the administration of intravenous contrast, 3.0 mm axial sections acquired from the sella to th e aortic arch. Additional oblique axial 3.0 mm sections acquired through the pharynx. 3 mm thick co roly reformats were generated. For radiation dose reduction, the following was used: automated exp osure control, adjustment of mA and/or kV according to patient size. COMPARISON: None. FINDINGS: Image quality: Excellent. Lymph nodes: No enlarged lymph nodes seen throughout the neck. Vessels: Visualized vasculature appears patent. Neck spaces: The oropharynx, nasopharynx, and pharynx demonstrate no mucosal lesions. The vocal cor ds, false vocal cords, pyriform sinuses, epiglottis, vallecula, and tongue base all appear normal. E xtramucosal spaces appear unremarkable. Glands: The parotid and submandibular glands appear normal. The thyroid is normal in size and there are no incidental findings. Miscellaneous: Visualized brain and orbits appear normal. Lung apices appear clear. Superficial so ft tissues appear normal. Biapical centrilobular emphysema. Bones: No suspicious bony lesions. Visualized sinuses and mastoids appear unremarkable. IMPRESSION: 1. No evidence of metastatic disease in the neck. No finding suspicious for malignancy. 2. Biapical centrilobular emphysema. Comment: CT is relatively insensitive for identifying mucosal lesions. Therefore, if strongly suspect a mucosa l lesion, recommend ENT referral for direct visualization. CLINICAL RECOMMENDATION STATEMENTS: In patients <35 years with an ITN detected on CT, MRI, or extrathyroidal ultrasound, the Committee re commends further evaluation with dedicated thyroid ultrasound if the nodule is "e1 cm and has no susp icious imaging features, and if the patient has normal life expectancy. In patients "e35 years with an ITN detected on CT, MRI, or extrathyroidal ultrasound, the Committee r ecommends further evaluation with dedicated thyroid ultrasound if the nodule is "e1.5 cm and has no s uspicious imaging features, and if the patient has normal life expectancy. (ACR, 2014) Reviewed by: Robert Rowell MD on 08/16/2022 12:02 PM PDT Approved by: Robert Rowell MD on 08/16/2022 12:02 PM PDT Station ID: [id number]
== END 2022-08-16 10:29 | disposition home or self-care (01) ==
LOC: DI 10:28
PROVIDERS: ATTEND Physician Assistant
DX: J39.2 Other diseases of pharynx (principal); R13.10 Dysphagia, unspecified; J43.2 Centrilobular emphysema
CPT/HCPCS: 70491; Q9967

== ENCOUNTER 2022-09-27 12:20 | Day surgery (SDC) | payer MEDICARE ==
[2022-09-27] MEDS ORDERED: LACTATED RINGERS 1,000 ML IV ONE ×6 (12:39→14:15)
[2022-09-27] MEDS ORDERED: LIDOCAINE-MPF 2% 5 ML VIAL ONE (12:54)
[2022-09-27] MEDS ORDERED: PROPOFOL 200 MG/20 ML VIAL IVP ONE (12:54)
--- NOTE | 2022-09-27 13:06 | ANESTHESIA ---
Pre-Anesthesia VS, & Labs - Diagnosis Anemia and epigastric pain - Procedure EGD Vital Signs: Temp Pulse Resp BP Pulse Ox O2 Flow Rate 36.2 C L 82 16 115/82 H 99 0 09/27/22 12:39 09/27/22 12:39 09/27/22 12:39 09/27/22 12:39 09/27/22 12:39 09/27/22 12:39 Height: 6 ft Weight (kg): 63 kg Body Mass Index: 18.8 BMI Classification: Normal - NPO >8 hours Home Medications and Allergies Home Medications: Ambulatory Orders Cyclobenzaprine [Flexeril] 10 mg PO TID PRN 09/26/22 Omeprazole 40 mg PO DAILY 09/26/22 Oxycodone HCl/Acetaminophen [Oxycodone-Acetaminophn 7.5-325] 1 tab PO TID 09/26/22 Cyclobenzaprine [Flexeril] 10 mg PO TID PRN 09/26/22 Omeprazole 40 mg PO DAILY 09/26/22 Oxycodone HCl/Acetaminophen [Oxycodone-Acetaminophn 7.5-325] 1 tab PO TID 09/26/22 Allergies/Adverse Reactions: Allergies Allergy/AdvReac Type Severity Reaction Status Date / Time amoxicillin [Amoxicillin] Allergy Intermediate Rash Verified 07/30/22 19:50 codeine [Codeine] Allergy Intermediate Rash Verified 07/30/22 19:50 Penicillins Allergy Intermediate Rash Verified 07/30/22 19:50 indomethacin AdvReac Unknown Emesis Verified 07/30/22 19:50 gabapentin AdvReac loss of Verified 07/30/22 19:50 bladder control, numbness, tingling in hands and fee Anes History & Medical History - Anesthetic History Anesthesia Complications: reports: No previous complications - Medical History Cardiovascular: reports: None Pulmonary: reports: Asthma, Pneumonia Gastrointestinal: reports: GERD, Ulcers, Chronic constipation, Other Urinary: reports: None Neuro: reports: Migraines Musculoskeletal: reports: Fibromyalgia, Chronic back pain Endocrine/Autoimmune: reports: None Blood Disorders: reports: None Skin: reports: Eczema Smoking Status: Current every day smoker (1 pack per day) Psychosocial: reports: Cannabis (daily) History of Cancer?: No - Surgical History General: reports: EGD Urologic: reports: Testicular surgery Gynecologic: reports: Other Orthopedic: reports: Spine surgery (L5-S1) Exam General: Alert, Oriented x3, Cooperative, No acute distress Dental: Poor dentition Mouth Openin Fingerbreadth Neck Mobility: Normal Mallampati classification: I Thyromental Distance: 4-6 cm Mental/Cognitive Status: Alert/Oriented X3, Normal for patient Plan Anesthesia Type: General, Total IV Consent for Procedure(s) Verified and Reviewed: Yes Code Status: Attempt Resuscitation ASA classification: 3-Severe systemic disease Is this case an emergency?: No
[2022-09-27] MEDS ORDERED: MIDAZOLAM 2 MG/2 ML VIAL ONE (13:30)
[2022-09-27 14:43] VITALS: BP 103/74
--- NOTE | 2022-09-27 15:17 | ANESTHESIA POST OP EVALUATION ---
Anesthesia Post Eval - Post Anesthesia Eval Vitals: Last Vital Signs Temp 36.3 C L 09/27/22 14:15 Pulse 68 09/27/22 14:15 Resp 17 09/27/22 14:15 BP 103/74 09/27/22 14:15 Pulse Ox 99 09/27/22 14:15 O2 Flow Rate 0 09/27/22 12:39 CV Function Including HR & BP: Stable Pain Control: Satisfactory Nausea & Vomiting: Negative Mental Status: Baseline Respiratory Status: Airway Patent Hydration Status: Satisfactory Anesthesia Complications: None
== END 2022-09-27 12:21 | disposition home or self-care (01) ==
LOC: SDS 12:20
PROVIDERS: ATTEND Surgery
PROC: 0DB68ZX Excision of Stomach, Via Natural or Artificial Opening Endoscopic, Diagnostic (ICD-10-PCS; 2022-09-27)
PROC: 0DB98ZX Excision of Duodenum, Via Natural or Artificial Opening Endoscopic, Diagnostic (ICD-10-PCS; principal; 2022-09-27 13:30)
DX: R10.13 Epigastric pain (principal); R13.10 Dysphagia, unspecified; D64.9 Anemia, unspecified; J39.2 Other diseases of pharynx; K21.9 Gastro-esophageal reflux disease without esophagitis; J45.909 Unspecified asthma, uncomplicated; F17.210 Nicotine dependence, cigarettes, uncomplicated; K31.84 Gastroparesis
CPT/HCPCS: 43239; J7120

== ENCOUNTER 2022-10-08 14:40 | Outpatient (CLI) | payer MEDICARE | END 2022-10-08 14:41 | disposition home or self-care (01) | LOC: MAC.MOP 14:40 | PROVIDERS: ATTEND Physician Assistant | DX: R55 Syncope and collapse (principal) | CPT/HCPCS: 93246 ==

== ENCOUNTER 2022-10-31 11:00 | Outpatient (CLI) | payer MEDICARE | END 2022-10-31 11:01 | disposition home or self-care (01) | LOC: MAC.INF 11:00 | PROVIDERS: ATTEND Physician Assistant | DX: I47.1 Supraventricular tachycardia (principal); I49.1 Atrial premature depolarization; I49.3 Ventricular premature depolarization | CPT/HCPCS: 93248 ==

== ENCOUNTER 2022-12-06 07:05 | Outpatient (CLI) | payer MEDICARE ==
[2022-12-06 12:32] LABS: BASOPHILS # (AUTO) 0.1 10^3/uL (0.0-0.1); BASOPHILS % (AUTO) 1.8 %; EOSINOPHILS # (AUTO) 0.2 10^3/uL (0.0-0.7); HCT - HEMATOCRIT 44.7 % (42.0-52.0); HGB - HEMOGLOBIN 15.1 g/dL (14.0-18.0); LYMPHOCYTES % (AUTO) 32.7 %; MEAN CORPUSCULAR HEMOGLOBIN 33.8 pg (27.0-31.0); MEAN CORPUSCULAR HGB CONC 33.8 g/dL (32.0-36.0); MEAN PLATELET VOLUME 9.2 fL (7.4-11.4); MONOCYTES # (AUTO) 0.7 10^3/uL (0.0-1.0); MONOCYTES % (AUTO) 11.9 %; NEUTROPHILS # (AUTO) 2.9 10^3/uL (1.5-6.6); NEUTROPHILS % (AUTO) 49.3 %; PLT - PLATELET COUNT 294 10^3/uL (130-450); RED BLOOD COUNT 4.47 10^6/uL (4.70-6.10)
[2022-12-06 12:42] LABS: % IRON SATURATION 36 % (20-50); ALBUMIN 4.3 g/dL (3.2-5.5); ALBUMIN/GLOBULIN RATIO 1.8 (1.0-2.2); ALKALINE PHOSPHATASE 58 IU/L (42-121); ALT ALANINE AMINOTRANSFERASE 9 IU/L (10-60); AST ASPARTATE AMINOTRANSFERASE 18 IU/L (10-42); BILIRUBIN,TOTAL 0.5 mg/dL (0.2-1.0); BUN - BLOOD UREA NITROGEN 12 mg/dL (6-20); CALCIUM 9.5 mg/dL (8.5-10.3); CARBON DIOXIDE - CO2 31 mmol/L (21-32); CHLORIDE 102 mmol/L (101-111); CHOLESTEROL 206 mg/dL; GFR - MDRD 80 (>89); GLUCOSE 96 mg/dL (74-104); HDL CHOLESTEROL 51 mg/dL; IRON 108 ug/dL (50-212); LDL CHOLESTEROL,CALCULATED 123 mg/dL; LDL/HDL RATIO 2.4 (<3.6); POTASSIUM 4.3 mmol/L (3.5-4.5); SODIUM 137 mmol/L (135-145); TOTAL IRON BINDING CAPACITY 304 ug/dL (250-450); TOTAL PROTEIN 6.7 g/dL (6.4-8.9); TRANSFERRIN 217 mg/dL (203-362); TRIGLYCERIDES 162 mg/dL (48-352); VLDL CHOLESTEROL 32 mg/dL
[2022-12-06 12:58] LABS: THYROID STIMULATING HORMONE 1.88 uIU/mL (0.34-5.60)
[2022-12-06 13:04] LABS: FERRITIN 91.7 ng/mL (23.9-336.2)
== END 2022-12-06 07:06 | disposition home or self-care (01) ==
LOC: LAB.N 07:05
PROVIDERS: ATTEND Physician Assistant
DX: D64.9 Anemia, unspecified (principal); R55 Syncope and collapse; E78.5 Hyperlipidemia, unspecified
CPT/HCPCS: 36415; 80053; 80061; 82024; 82533; 82607; 82728; 82746; 83540; 83721; 84443; 84466; 85025

== ENCOUNTER 2024-10-24 19:50 | Inpatient (IN) ==
--- NOTE | 2024-10-24 20:00 | ED Physician Documentation ---
History of Present Illness Stated complaint Stated Complaint: ETOH Chief complaint Chief Complaint: General History obtained from History obtained from: Patient Additonal information Additional information: 49yM with pmh etoh abuse p/w alcohol use today,s tating he drank 5 fifths of vodka and stopped drinking at noon. he now feels nausea, sound and light sensitivity, headache, malaise. asking for detox. also endorses continuous passive SI "all the time" but no active plan. denies HI/AVH Meds/Allgy Home Medications Ambulatory Orders Medication Instructions Recorded Confirmed oxycodone-acetaminophen 5 mg-325 1 tab PO Q8H PRN 03/1310/01/24 mg tablet (Percocet) duloxetine 40 mg capsule,delayed 40 mg PO QDAY #30 cap s 08/12/24 10/01/24 release hydroxyzine HCl 25 mg tablet 25 mg PO BID PRN anxiety, panic, 08/12/24 10/01/24 or insomnia #60 tabs oxycodone-acetaminophen 7.5 mg-325 1 tab PO TID 10/01/24 mg tablet (Percocet) ondansetron 4 mg disintegrating 4 mg PO Q8H PRN nausea and 10/01/24 10/01/24 tablet vomiting #90 tabs pantoprazole 40 mg tablet,delayed 40 mg PO QDAY GERD # 90 tabs 10/01/24 10/01/24 release nutritional supplement-fiber oral 6 ea PO BID #1,361 g bev 10/10/24 10/10/24 liquid (Ensure Plant-Based Protein oral liquid) Allergies Allergies Allergy/AdvReac Type Severity Reaction Status Date / Time amoxicillin (Amoxicillin) Allergy Intermediate Rash Verified 08/12/24 10:13 codeine (Codeine) Allergy Intermediate Rash Verified 08/12/24 10:13 Penicillins Allergy Intermediate Rash Verified 08/12/24 10:13 erythromycin base AdvReac Unknown Nausea Verified 08/12/24 10:13 indomethacin AdvReac Unknown Emesis Verified 08/12/24 10:13 gabapentin AdvReac loss of Verified 08/12/24 10:13 bladder control, numbness, tingling in hands and fee PFSH Active Problems All Active Problems (Updated 10/24/24 @ 20:57 by Louise Katz MD) Alcohol withdrawal (Acute) Condyloma acuminatum in male (Acute) Nausea & vomiting (Acute) Difficulty in micturition (Acute) Tachycardia-bradycardia (Acute) Chronic alcoholism in remission (Acute) Chronic cough (Acute) Weight loss, unintentional (Acute) Elevated blood-pressure reading without diagnosis of hypertension (Chronic) Depression (Acute) GERD (gastroesophageal reflux disease) (Acute) Chronic pain syndrome (Acute) Cigarette smoker (Acute) Dyslipidemia (Acute) Macrocytic anemia (Acute) Pain in right lower leg (Acute) Irritable bowel syndrome (Acute) Diarrhea, unspecified (Acute) Constipation, unspecified (Acute) Thoracic back pain (Acute) Screening for prostate cancer (Acute) Screening for deficiency anemia (Acute) Screening for thyroid disorder (Acute) Screening for metabolic disorder (Acute) Ankle swelling (Acute) Pain in left foot (Acute) Screening for hyperlipidemia (Acute) External hemorrhoids (Acute) Sinus tachycardia (Acute) Radiculopathy, lumbar region (Acute) Sciatica (Acute) Contusion of right hand, initial encounter (Acute) Weight loss (Acute) Anemia (Acute) Oropharyngeal lesion (Acute) Migraine headache (Acute) Occipital neuralgia (Acute) Pain in right shoulder (Acute) Radicular pain of right upper extremity (Acute) Gastroparesis (Acute) Colon cancer screening (Acute) Spasm of right trapezius muscle (Acute) Inflammatory disorders of scrotum (Acute) Dysuria (Acute) Major depressive disorder, recurrent, severe w/o psychotic behavior (Acute) PTSD (post-traumatic stress disorder) (Acute) Generalized anxiety disorder with panic attacks (Acute) Alcohol use disorder, severe, in early remission (Acute) Tooth abscess (Acute) Frequent urination (Acute) Angiokeratoma of scrotum (Acute) Abnormal swallowing (Acute) Dysphagia (Acute 03/06/16) COPD (chronic obstructive pulmonary disease) (Chronic) Asthma (Chronic) Medical History Medical History Gastroparesis Syncope (08/01/22) Sciatica (07/26/21) Migraine headache (05/19/06) Tobacco abuse (05/19/06) Spondylosis of lumbar joint (05/19/06) Sinus tachycardia (05/24/21) Occipital neuralgia (10/03/22) Irritable bowel syndrome (04/29/17) GERD (gastroesophageal reflux disease) (05/22/09) External hemorrhoids (05/24/21) Dyslipidemia (12/03/16) Depression (05/19/06) Cigarette smoker (05/17/16) Chronic pain syndrome (01/04/16) Cervicalgia (09/27/16) Lumbar back pain with radiculopathy affecting lower extremity (02/23/21) Testicular torsion Fibromyalgia Alcohol abuse Surgical History Surgical History Hx of vasectomy (05/19/06) H/O discectomy Social History Social History Smoking Status: Current every day smoker (1 pack per day) Number of Years Smoked: 35 How many cigarettes a day do you smoke? (20 cigarettes=1 Pk): 15 Do you dip or chew tobacco?: Yes Do you vape?: No Patient requests smoking cessation consult: No Initiate information on smoking cessation: No Living arrangement: At home Living Condition: With family Support Person: Yes Relationship: Parent Level: Independent Do you feel safe in your home environment?: Yes Suffered physical, verbal, emotional, or financial abuse?: No History of Abuse: No ETOH Use: None Frequency: Daily Substance Use: cannabis (any form) POLST Patient has POLST: No Exam Exam Vital Signs: Vital Signs x48h Temp Pulse Resp BP Pulse Ox 10/24/24 20:11 101 H 20 157/92 H 98 10/24/24 19:53 36.8 C 82 18 151/87 H 96 Constitutional normal general appearance, no apparent distress and average body habitus [facility] normocephalic, head/scalp atraumatic and oropharynx normal Eyes PERRL Chest inspection of chest normal Respiratory breath sounds equal bilaterally, normal respiratory effort and clear to auscultation bilaterally Cardiovascular normal heart rate noted and regular rhythm noted Results Vitals Vitals: Vital Signs - 24 hr 10/24/24 19:53 10/24/24 20:11 Temperature 36.8 C Temperature Source Temporal Artery Scan Pulse Rate 82 101 H Respiratory Rate 18 20 Blood Pressure 151/87 H 157/92 H O2 Saturation 96 98 O2 Source Room air Room air Pain Intensity 3 Oxygen O2 Source Room air Labs Labs: Laboratory Tests 10/24/24 20:10 WBC 6.7 RBC 4.81 Hgb 16.3 Hct 48.1 MCV 100.0 H MCH 33.9 H MCHC 33.9 RDW 13.4 Plt Count 235 MPV 8.4 Neut # (Auto) 3.0 Lymph # (Auto) 2.8 [place] # (Auto) 0.5 Eos # (Auto) 0.2 Baso # (Auto) 0.1 Absolute Nucleated RBC 0.00 Nucleated RBC % 0.0 Sodium 140 Potassium 4.6 H Chloride 104 Carbon Dioxide 22 Anion Gap 14.0 H BUN 16 Creatinine 0.7 Estimated GFR (MDRD) 120 Calcium 9.1 Magnesium 2.3 Total Bilirubin 0.4 AST 23 ALT 14 Alkaline Phosphatase 62 Total Creatine Kinase 168 Total Protein 7.3 Albumin 4.6 Globulin 2.7 Albumin/Globulin Ratio 1.7 Lipase 71 TSH 1.34 Salicylates < 1.5 Acetaminophen 0.2 Ethyl Alcohol 217.5 PD Medical Decision Making ED course ED course: 49yM presents with heavy alcohol use and request for detox treatment. also with passive SI. plan admission given high CIWA (20 s/p ativan and phenobarbital). Discharge Plan Discharge Patient Disposition: 66 [facility] DC/Xfer Condition: Fair Clinical Impression: Alcohol withdrawal Prescriptions: No Action oxycodone-acetaminophen [Percocet] 7.5-325 mg tablet 1 tab PO TID oxycodone-acetaminophen [Percocet] 5-325 mg tablet 1 tab PO Q8H PRN duloxetine 40 mg capsule,delayed release(DR/EC) 40 mg PO QDAY Qty: 30 1RF hydroxyzine HCl 25 mg tablet 25 mg PO BID PRN (Reason: anxiety, panic, or insomnia) Qty: 60 0RF pantoprazole 40 mg tablet,delayed release (DR/EC) 40 mg PO QDAY Qty: 90 1RF ondansetron 4 mg tablet,disintegrating 4 mg PO Q8H PRN (Reason: nausea and vomiting) Qty: 90 0RF Ensure Plant-Based Protein Liquid 6 ea PO BID Qty: 1361 3RF Rx Instructions: 6 pack - 8ozs each Dairy free, low fiber if possible. (48 ozs) Print Language: Danish
--- OUTSIDE RECORDS SUMMARY | 2024-10-24 20:07 | EXTERNAL MEDICAL SUMMARY RPT | Continuity of Care Document ---
Author Organization [place] Address [address] [place] [phone] Phone Problems date description facility 2024-08-12 10:13 [facility], [facility] 10:49 Elevated blood-press ure reading, without diagnosis of [facility] 2024-10-07 10:49 Other [facility]uri [facility] 2024-10-07 12:22 Elevated blood-press ure reading, without diagnosis of [facility] 2024-10-07 12:22 Other difficulties with [facility]icturi [facility]ion [facility] 2024-10-08 00:04 Elevated blood-press ure reading, without diagnosis of hypertension [facility] 2024-10-08 00:04 Other difficulties with micturi tion [facility] 2024-10-12 12:53 Elevated blood-press ure reading, without diagnosis of hypertension [facility] Results/Labs test date facility value unit notes Result panel 1 NUCLEATED RED BLOOD CELLS AUTO 2024-10-07 11:00 [facility] 0.0 /100wbc (missing) NRBC ABSOLUTE COUNT (AUTO) 2024-10-07 11:00 [facility] 0.00 x10 3/ul (missing) BASOPHILS # (AUTO) 2024-10-07 11:00 [facility] 0.1 10 3/ul (missing) EOSINOPHILS # (AUTO) 2024-10-07 11:00 [facility] 0.1 10 3/ul (missing) BILIRUBIN,TOTAL 2024-10-07 11:00 [facility] 0.5 mg /dl As of November 2022 testing method has changed, this may include reference ranges. MONOCYTES # (AUTO) 2024-10-07 11:00 [facility] 0.7 10 3/ul (missing) CREATININE 2024-10-07 11:00 [facility] 0.8 mg/dl As of November 2022 testing method has changed, this may include reference ranges. LDL/HDL RATIO 2024-10-07 11:00 [facility] 1.7 (mis sing) (missing) ALBUMIN/GLOBULIN RATIO 2024-10-07 11:00 [facility] 1.8 (missing) (missing) LYMPHOCYTES # (AUTO) 2024-10-07 11:00 [facility] 1.8 10 3/ul (missing) AST ASPARTATE AMINOTRANSFERASE 2024-10-07 11:00 [facility] 10 iu/l As of November 2022 testing method has changed, this may include reference ranges. CHLORIDE 2024-10-07 11:00 [facility] 101 mmol/l As of November 2022 testing method has changed, this may include reference ranges. GFR - MDRD 2024-10-07 11:00 [facility] 103 (rut meade) Social History date description facility
[2024-10-24] MEDS: SODIUM CHLORIDE 0.9% 500 ML IV ONE (20:14)
[2024-10-24] MEDS: LORazepam 2 MG/ML VIAL IVP STA (20:14)
[2024-10-24] MEDS: THIAMINE 100 MG/1 ML 2 ML MDV IVP STA (20:14)
[2024-10-24 20:16] LABS: BASOPHILS # (AUTO) 0.1 10^3/uL (0.0-0.1); BASOPHILS % (AUTO) 1.8 %; EOSINOPHILS # (AUTO) 0.2 10^3/uL (0.0-0.7); EOSINOPHILS % (AUTO) 2.9 %; HCT - HEMATOCRIT 48.1 % (42.0-52.0); HGB - HEMOGLOBIN 16.3 g/dL (14.0-18.0); LYMPHOCYTES # (AUTO) 2.8 10^3/uL (1.5-3.5); LYMPHOCYTES % (AUTO) 42.3 %; MEAN CORPUSCULAR HEMOGLOBIN 33.9 pg (27.0-31.0); MEAN CORPUSCULAR HGB CONC 33.9 g/dL (32.0-36.0); MEAN PLATELET VOLUME 8.4 fL (7.4-11.4); MONOCYTES # (AUTO) 0.5 10^3/uL (0.0-1.0); MONOCYTES % (AUTO) 7.5 %; NEUTROPHILS % (AUTO) 45.2 %; PLT - PLATELET COUNT 235 10^3/uL (130-450); RED BLOOD COUNT 4.81 10^6/uL (4.70-6.10); RED CELL DISTRIBUTION WIDTH 13.4 % (12.0-15.0); WHITE BLOOD COUNT 6.7 x10^3/uL (4.8-10.8)
[2024-10-24 20:44] LABS: ACETAMINOPHEN 0.2 ug/mL; CK- CREATINE KINASE 168 IU/L (30-223); ETOH - ETHANOL 217.5 mg/dL; LIPASE 71 U/L (11-82); THYROID STIMULATING HORMONE 1.34 uIU/mL (0.34-5.60)
[2024-10-24 20:49] LABS: ALBUMIN 4.6 g/dL (3.2-5.5); ALBUMIN/GLOBULIN RATIO 1.7 (1.0-2.2); ALKALINE PHOSPHATASE 62 IU/L (42-121); ALT ALANINE AMINOTRANSFERASE 14 IU/L (10-60); AST ASPARTATE AMINOTRANSFERASE 23 IU/L (10-42); BILIRUBIN,TOTAL 0.4 mg/dL (0.2-1.0); BUN - BLOOD UREA NITROGEN 16 mg/dL (6-20); CALCIUM 9.1 mg/dL (8.5-10.3); CARBON DIOXIDE - CO2 22 mmol/L (21-32); CHLORIDE 104 mmol/L (101-111); CREATININE 0.7 mg/dL (0.6-1.3); GFR - MDRD 120 (>89); MAGNESIUM 2.3 mg/dL (1.7-2.3); POTASSIUM 4.6 mmol/L (3.5-4.5); SALICYLATE < 1.5 mg/dL; SODIUM 140 mmol/L (135-145); TOTAL PROTEIN 7.3 g/dL (6.4-8.9)
[2024-10-24] MEDS: PHENobarbitaL 32.4 MG TABLET PO STA (20:56)
[2024-10-24 21:21] LABS: GLUCOSE 81 mg/dL (74-104)
--- NOTE | 2024-10-24 21:35 | HISTORY & PHYSICAL EXAMINATION ---
Chief Complaint Chief Complaint Chief Complaint: want s to stop drinking History of Present Illness Admitted From Admitted From:: home History Obtained From Records Reviewed: behavioral health History obtained from: Paitent and family (mother and son) History of Present Illness HPI Comment/Other: 49-year-old gentleman who presents to the emergency department stating that he wants to stop drinking. Via EMS. Told the emergency department physician that his last drink was at noon. Told me that his last drink was between 3 and 5 PM. Says he drinks about 1/5 of alcohol a day. Had a CIWA score of 20 in the emergency department was given 1 mg of Ativan IV about an hour before I saw him and is doing well. His alcohol level is 217 on admission. He has a history of gastroparesis, chronic pain secondary to back problems is managed at [facility] pain clinic. Takes 5 mg of oxycodone 4 times a day. He states that on the days that he is not drinking he takes oxycodone. But he states that he does consume all of his oxycodone prescription every month save a few pills. He is a vague historian in general. Reading through the records he reported to practitioner in the behavioral health clinic on 14 September that he had not had a drink for 2 months. There is a family practice note on 01 October that refers to him having been clean of alcohol for 6 months. With me he is vague about when he started drinking again, although he is alert and oriented x 3. He states that he has blood in his vomit and in his bowel movements. And he struggles with chronic abdominal pain as well. He states he has not had any large amount of blood in his vomit just small streaks. It looks like he had an EGD by Dr. Connelly in September 2022 and there was no evidence seen of esophageal varices at that time. The indication for this EGD was epigastric pain. He has been prescribed duloxetine and hydroxyzine for anxiety but he states that he is intolerant of these medications. They make his stomach hurt and he cannot take them.He has a chronically poor appetite. Looking back through the records his weight hovers around 65 kg. I have injuries dating back to February 2024. He is an everyday smoker of both cannabis and tobacco. He denies the need for nicotine replacement while he was here in the hospital. He is unemployed, disabled secondary to back pain. He lives with his mother and his son. Meds/Allgy Home Medications Ambulatory Orders Medication Instructions Recorded Confirmed oxycodone-acetaminophen 5 mg-325 1 tab PO Q8H PRN 03/1310/01/24 mg tablet (Percocet) duloxetine 40 mg capsule,delayed 40 mg PO QDAY #30 cap s 08/12/24 10/01/24 release hydroxyzine HCl 25 mg tablet 25 mg PO BID PRN anxiety, panic, 08/12/24 10/01/24 or insomnia #60 tabs oxycodone-acetaminophen 7.5 mg-325 1 tab PO TID 10/01/24 mg tablet (Percocet) ondansetron 4 mg disintegrating 4 mg PO Q8H PRN nausea and 10/01/24 10/01/24 tablet vomiting #90 tabs pantoprazole 40 mg tablet,delayed 40 mg PO QDAY GERD # 90 tabs 10/01/24 10/01/24 release nutritional supplement-fiber oral 6 ea PO BID #1,361 g bev 10/10/24 10/10/24 liquid (Ensure Plant-Based Protein oral liquid) Allergies Allergies Allergy/AdvReac Type Severity Reaction Status Date / Time amoxicillin (Amoxicillin) Allergy Intermediate Rash Verified 08/12/24 10:13 codeine (Codeine) Allergy Intermediate Rash Verified 08/12/24 10:13 Penicillins Allergy Intermediate Rash Verified 08/12/24 10:13 erythromycin base AdvReac Unknown Nausea Verified 08/12/24 10:13 indomethacin AdvReac Unknown Emesis Verified 08/12/24 10:13 gabapentin AdvReac loss of Verified 08/12/24 10:13 bladder control, numbness, tingling in hands and fee PFSH Active Problems All Active Problems (Updated 10/24/24 @ 21:52 by STEPHANIE Seals) Hyperkalemia (Acute) Xanthelasma (Acute) Alcohol withdrawal (Acute) Condyloma acuminatum in male (Acute) Nausea & vomiting (Acute) Difficulty in micturition (Acute) Tachycardia-bradycardia (Acute) Chronic alcoholism in remission (Acute) Chronic cough (Acute) Weight loss, unintentional (Acute) Elevated blood-pressure reading without diagnosis of hypertension (Chronic) Depression (Acute) GERD (gastroesophageal reflux disease) (Acute) Chronic pain syndrome (Acute) Cigarette smoker (Acute) Dyslipidemia (Acute) Macrocytic anemia (Acute) Pain in right lower leg (Acute) Irritable bowel syndrome (Acute) Diarrhea, unspecified (Acute) Constipation, unspecified (Acute) Thoracic back pain (Acute) Screening for prostate cancer (Acute) Screening for deficiency anemia (Acute) Screening for thyroid disorder (Acute) Screening for metabolic disorder (Acute) Ankle swelling (Acute) Pain in left foot (Acute) Screening for hyperlipidemia (Acute) External hemorrhoids (Acute) Sinus tachycardia (Acute) Radiculopathy, lumbar region (Acute) Sciatica (Acute) Contusion of right hand, initial encounter (Acute) Weight loss (Acute) Anemia (Acute) Oropharyngeal lesion (Acute) Migraine headache (Acute) Occipital neuralgia (Acute) Pain in right shoulder (Acute) Radicular pain of right upper extremity (Acute) Gastroparesis (Acute) Colon cancer screening (Acute) Spasm of right trapezius muscle (Acute) Inflammatory disorders of scrotum (Acute) Dysuria (Acute) Major depressive disorder, recurrent, severe w/o psychotic behavior (Acute) PTSD (post-traumatic stress disorder) (Acute) Generalized anxiety disorder with panic attacks (Acute) Alcohol use disorder, severe, in early remission (Acute) Tooth abscess (Acute) Frequent urination (Acute) Angiokeratoma of scrotum (Acute) Abnormal swallowing (Acute) Dysphagia (Acute 03/06/16) COPD (chronic obstructive pulmonary disease) (Chronic) Asthma (Chronic) Medical History Medical History Gastroparesis Syncope (08/01/22) Sciatica (07/26/21) Migraine headache (05/19/06) Tobacco abuse (05/19/06) Spondylosis of lumbar joint (05/19/06) Sinus tachycardia (05/24/21) Occipital neuralgia (10/03/22) Irritable bowel syndrome (04/29/17) GERD (gastroesophageal reflux disease) (05/22/09) External hemorrhoids (05/24/21) Dyslipidemia (12/03/16) Depression (05/19/06) Cigarette smoker (05/17/16) Chronic pain syndrome (01/04/16) Cervicalgia (09/27/16) Lumbar back pain with radiculopathy affecting lower extremity (02/23/21) Testicular torsion Fibromyalgia Alcohol abuse Surgical History Surgical History Hx of vasectomy (05/19/06) H/O discectomy Social History Social History (Updated 10/24/24 @ 21:06 by Zoey Prado, RIKKI) Smoking Status: Current every day smoker Number of Years Smoked: 35 How many cigarettes a day do you smoke? (20 cigarettes=1 Pk): 15 Do you dip or chew tobacco?: Yes Do you vape?: No Patient requests smoking cessation consult: No Initiate information on smoking cessation: No Living arrangement: At home Living Condition: With family Support Person: Yes Relationship: Level: Independent Do you feel safe in your home environment?: Yes Suffered physical, verbal, emotional, or financial abuse?: No History of Abuse: No ETOH Use: None Frequency: Daily Substance Use: cannabis (any form) POLST Patient has POLST: No Review of Systems Status of ROS: 10 or more systems reviewed and unremarkable except as noted in history and below Prior Level of Functionality: Meets all of his own care needs. Exam Exam Vital Signs: Vital Signs x48h Temp Pulse Resp BP Pulse Ox 10/24/24 21:11 97 16 146/89 H 96 10/24/24 20:11 101 H 20 157/92 H 98 10/24/24 19:53 36.8 C 82 18 151/87 H 96 Constitutional normal general appearance Well-groomed. Has a sunburn. Hypertensive in the ED to the low 150s. He is not tachycardic but his heart rate is in the 80s to 90s. HENMT normocephalic, head/scalp atraumatic, hearing grossly normal bilaterally, oral mucous membranes normal and oropharynx normal Eyes PERRL, conjunctivae normal and no scleral icterus . Periorbital xanthelasma Neck/C-Spine visual inspection normal and trachea midline Lymph no lymphadenopathy noted Chest inspection of chest normal and palpation of chest normal Respiratory breath sounds equal bilaterally, normal respiratory effort and clear to auscultation bilaterally Cardiovascular normal heart rate noted and peripheral pulses 2+ throughout Gastrointestinal abdomen normal to inspection, nondistended and normoactive bowel sounds Generalized tenderness to palpation without distention. Voluntary guarding. 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 The patient is alert and oriented calm without tremors at the current time. Last drink was several hours prior to admission. Alcohol level on admission is 217. I asked the patient if he truly wants to stop drinking. He said that he does. I explained to him that alcohol withdrawal can be difficult to go through and maybe is not worth it if he is going to leave the hospital and drink again immediately. He states that he is interested in stopping drinking. I explained to him that we would get social work consult in the morning to help him with recovery navigation resources. Transaminases are within normal limits. This patient does not have an elevated bilirubin. I will add an INR onto his a.m. labs. I discussed this patient with Dr. Katz in the emergency department decision was made to admit him for treatment of his alcohol withdrawal symptoms. I will admit him to inpatient status in the ICU. (2) Chronic pain syndrome: Plan: Part of his reasoning for wanting to stop drinking is his chronic pain syndrome. He is a patient at the [facility] pain clinic. He is taking 20 mg of oxycodone daily divided into 4 doses. He knows that he is not supposed to drink and take pain medicine and he states that he is not doing so, however I cannot see the reality of him feeling a prescription for oxycodone every month taking all of it and not drinking. Treatment of his associated depression and anxiety has been attempted with duloxetine and hydroxyzine. He states that he is intolerant of these medications, they make his stomach hurt. (3) Elevated blood-pressure reading without diagnosis of hypertension: Plan: In the context of his withdrawal it is difficult to determine if he truly has a hypertension diagnosis. Looking back through his previous healthcare encounters in general his blood pressure is elevated. We will observe through this. Of admission and determine the best course of action. He is a chronic nicotine user as well. (4) Cigarette smoker: Plan: Chronic tobacco user, half a pack per day for many many years. I offered him nicotine replacement while he is here in the hospital. He denies need for nicotine replacement, he was offered both gum and patch and refuses these. He states that he will be fine without nicotine. (5) Xanthelasma: Plan: On exam these are quite prominent bilaterally. I see a diagnosis of dyslipidemia in the chart. However I do not see a cholesterol panel. Will consider adding this onto morning labs. Especially given the patient's other cardiovascular risk factors. (6) Hyperkalemia: Plan: Mildly elevated potassium at 4.6. I will recheck a BMP in the a.m. Plan I have spent 70 minutes in the care of this patient today. This includes time [id number], review and ordering of diagnostic imaging and laboratory studies and consultation with other providers. Monitoring the patient's signs symptoms, evaluation of medication effectiveness and patient's response to treatment. Lab Results Lab results reviewed: Yes 10/24/24 20:10 10/24/24 20:10 EKG Results EKG Findings: computer states "consider LVH". I think this is due to patient's thin body habitus. Core Measures Anticipated LOS I expect patient to be DC'd or transferred within 96 hours.: Yes Issues Hospital Issues and Management Plan: acute alcohol withdrawal DVT/VTE - Prophylaxis VTE/DVT Device ordered at admit?: Yes VTE/DVT Prophylaxis med ordered at admit?: No Not Ordered - Medical Reason: Contraindicated (I will check INR in AM for coagulopathy assoc with liver dysfxn and order if indicated. )
--- OUTSIDE RECORDS SUMMARY | 2024-10-24 21:36 | EXTERNAL MEDICAL SUMMARY RPT | Continuity of Care Document ---
Author Organization [facility] Address [address] [place] [id number] Phone Problems date description facility 2024-08-12 10:13 Anxiety disorder, unspecified [facility] 2024-10-07 10:49 Elevated blood-press ure reading, without diagnosis of hypertension [facility] 2024-10-07 10:49 Other difficulties with micturi tion [facility] 2024-10-07 12:22 Elevated blood-press ure reading, without diagnosis of hypertension [facility] 2024-10-07 12:22 Other difficulties with micturi tion [facility] 2024-10-08 00:04 Elevated blood-press ure reading, without diagnosis of hypertension [facility] 2024-10-08 00:04 Other difficulties with micturi tion [facility] 2024-10-12 12:53 Elevated blood-press ure reading, without diagnosis of hypertension [facility] Results/Labs test date facility value unit notes Result panel 1 NUCLEATED RED BLOOD CELLS AUTO 2024-10-07 11:00 [facility] 0.0 /100wbc (missing) NRBC ABSOLUTE COUNT (AUTO) 2024-10-07 11:00 [facility] 0.00 x10 3/ul (missing) BASOPHILS # (AUTO) 2024-10-07 11:00 [facility] 0.1 10 3/ul (missing) EOSINOPHILS # (AUTO) 2024-10-07 11:00 [facility] 0.1 10 3/ul (missing) BILIRUBIN,TOTAL 2024-10-07 11:00 [facility] 0.5 mg /dl As of November 2022 testing method has changed, this may include reference ranges. MONOCYTES # (AUTO) 2024-10-07 11:00 [facility] 0.7 10 3/ul (missing) CREATININE 2024-10-07 11:00 [facility] 0.8 mg/dl As of November 2022 testing method has changed, this may include reference ranges. LDL/HDL RATIO 2024-10-07 11:00 [facility] 1.7 (mis sing) (missing) ALBUMIN/GLOBULIN RATIO 2024-10-07 11:00 [facility] 1.8 (missing) (missing) LYMPHOCYTES # (AUTO) 2024-10-07 11:00 [facility] 1.8 10 3/ul (missing) AST ASPARTATE AMINOTRANSFERASE 2024-10-07 11:00 [facility] 10 iu/l As of November 2022 testing method has changed, this may include reference ranges. CHLORIDE 2024-10-07 11:00 [facility] 101 mmol/l As of November 2022 testing method has changed, this may include reference ranges. GFR - MDRD 2024-10-07 11:00 [facility] 103 (rut meade) Social History date description facility
[2024-10-24] MEDS ORDERED: LORazepam 2 MG/ML VIAL IVP PRN (21:47)
[2024-10-24] MEDS ORDERED: ACETAMINOPHEN 325 MG TABLET PO PRN (21:59)
[2024-10-24] MEDS: chlordiazePOXIDE 25 MG CAPSULE PO SCH (22:26)
[2024-10-24] MEDS: PANTOPRAZOLE 40 MG VIAL IVP ONE (22:26)
[2024-10-24] MEDS: SODIUM CHLORIDE FLUSH 0.9% 10 ML SYRINGE IVP PRN (22:26)
[2024-10-24 22:46] LABS: BILIRUBIN,URINE NEGATIVE (NEGATIVE); GLUCOSE, URINE (UA) NEGATIVE (NEGATIVE); KETONES,URINE (UA) TRACE mg/dL (NEGATIVE); LEUKOCYTE ESTERASE, URINE NEGATIVE (NEGATIVE); NITRITE,URINE NEGATIVE (NEGATIVE); OCCULT BLOOD,URINE NEGATIVE (NEGATIVE); PH,URINE 5.5 PH (5.0-7.5); PROTEIN,URINE TRACE mg/dL (NEGATIVE); UROBILINOGEN,URINE 0.2 (NORMAL) E.U./dL (NORMAL)
[2024-10-24 22:47] LABS: CLARITY,URINE CLEAR (CLEAR)
[2024-10-24 22:56] LABS: THC CANNABINOID SCREEN, URINE POSITIVE (NEGATIVE)
[2024-10-24 22:57] LABS: AMPHETAMINE SCREEN,URINE NEGATIVE (NEGATIVE); BARBITURATE SCREEN,UR NEGATIVE (NEGATIVE); BENZODIAZEPINES SCREEN, URINE NEGATIVE (NEGATIVE); BUPRENORPHINE SCREEN, URINE NEGATIVE (NEGATIVE); COCAINE SCREEN URINE NEGATIVE (NEGATIVE); METHADONE SCREEN, URINE NEGATIVE (NEGATIVE); METHAMPHETAMINES SCREEN, URINE NEGATIVE (NEGATIVE); OPIATE SCREEN, URINE NEGATIVE (NEGATIVE); OXYCODONE SCREEN, URINE NEGATIVE (NEGATIVE); TRICYCLIC ANTIDEPRESSANT,URINE NEGATIVE (NEGATIVE)
[2024-10-25] MEDS: SODIUM CHLORIDE FLUSH 0.9% 10 ML SYRINGE IVP SCH (00:09)
[2024-10-25 04:49] LABS: BASOPHILS # (AUTO) 0.1 10^3/uL (0.0-0.1); BASOPHILS % (AUTO) 1.3 %; EOSINOPHILS # (AUTO) 0.2 10^3/uL (0.0-0.7); EOSINOPHILS % (AUTO) 2.6 %; HCT - HEMATOCRIT 44.5 % (42.0-52.0); HGB - HEMOGLOBIN 15.6 g/dL (14.0-18.0); LYMPHOCYTES # (AUTO) 2.5 10^3/uL (1.5-3.5); LYMPHOCYTES % (AUTO) 35.9 %; MEAN CORPUSCULAR HEMOGLOBIN 33.8 pg (27.0-31.0); MEAN CORPUSCULAR HGB CONC 35.1 g/dL (32.0-36.0); MEAN CORPUSCULAR VOLUME 96.5 fL (80.0-94.0); MEAN PLATELET VOLUME 8.2 fL (7.4-11.4); MONOCYTES # (AUTO) 0.6 10^3/uL (0.0-1.0); MONOCYTES % (AUTO) 8.6 %; NEUTROPHILS # (AUTO) 3.5 10^3/uL (1.5-6.6); NEUTROPHILS % (AUTO) 51.5 %; PLT - PLATELET COUNT 228 10^3/uL (130-450); RED BLOOD COUNT 4.61 10^6/uL (4.70-6.10); WHITE BLOOD COUNT 6.9 x10^3/uL (4.8-10.8)
[2024-10-25 04:51] LABS: PT - PROTHROMBIN TIME 10.8 secs (9.9-12.6)
[2024-10-25 05:09] LABS: ETOH - ETHANOL 39.7 mg/dL; PHOSPHORUS 2.9 mg/dL (2.5-5.0)
[2024-10-25 05:11] LABS: CALCIUM 8.9 mg/dL (8.5-10.3); CREATININE 0.8 mg/dL (0.6-1.3); POTASSIUM 3.9 mmol/L (3.5-4.5)
[2024-10-25] MEDS: oxyCODONE 5 MG TABLET PO PRN (08:57)
[2024-10-25] MEDS: MULTIVITAMIN 10 ML, THIAMINE INJ 100 MG, FOLIC ACID INJ 1 MG in SODIUM CHLORIDE 0.9% 1,... IV SCH (08:57)
[2024-10-25] MEDS ORDERED: THIAMINE 100 MG TABLET PO SCH (09:00)
[2024-10-25] MEDS ORDERED: PRENATAL VITAMIN TABLET PO SCH (09:00)
[2024-10-25] MEDS: PANTOPRAZOLE 40 MG TABLET PO SCH (10:22)
[2024-10-25] MEDS: ONDANSETRON 4 MG/2 ML VIAL IVP PRN (10:23)
--- NOTE | 2024-10-25 11:33 | PHARMACY PROGRESS NOTE ---
Best Possible Medication History Admit Date and Time: 10/24/242120 Home Medications Medication Instructions Recorded Confirmed Type oxycodone-acetaminophen 5 mg-325 1 tab PO Q6H PRN pain 04/07/24 10/25/24 History mg tablet (Percocet) ondansetron 4 mg disintegrating 4 mg PO Q8H PRN nausea and 10/01/24 10/25/24 Rx tablet vomiting #90 tabs pantoprazole 40 mg tablet,delayed 40 mg PO QDAY GERD # 90 tabs 10/01/24 10/25/24 Rx release hydroxyzine HCl 25 mg tablet 25 mg PO PRN PRN anxiety, panic, 10/25/24 10/25/24 History or insomnia Processed by: Pharmacy ([facility] [employer]) Medications reviewed in ED?: No Medication History completed: Yes Patient Interview: Completed Secondary Source(s): Insurance records [facility] Statement: As the person ultimately responsible for medication therapy, providers are able to order a medication from an existing home medication list in [facility] via the "Reconcile Routine" prior to Confirmation of that medication by office support associate. Such practice is discouraged except when the physician, in their clinical judgment, deems that a medical need exists for a medication without regard to previous use.
[2024-10-25 12:20] VITALS: TEMP 99
--- NOTE | 2024-10-25 13:00 | Discharge Summary ---
Discharge Summary Admit Date: 10/24/24 Discharge Date: 10/25/24 Discharging Provider: Sivan Cortes PA-C Primary Care Provider: JENNIFER Hua Code Status: Attempt Resuscitation DIAGNOSES Discharge Diagnoses with Status of Each Condition: Alcohol withdrawal, initially presented with CIWA of 20 in the ED. No significant elevation in scores overnight. This patient can discharge to home. He has refused resources. Alcohol abuse Chronic pain syndrome Elevated blood pressure Cigarette use Xanthelasma Hyperkalemia, resolved HPI History of Present Illness: 49-year-old gentleman who presents to the emergency department stating that he wants to stop drinking. Via EMS. Told the emergency department physician that his last drink was at noon. Told me that his last drink was between 3 and 5 PM. Says he drinks about 1/5 of alcohol a day. Had a CIWA score of 20 in the emergency department was given 1 mg of Ativan IV about an hour before I saw him and is doing well. His alcohol level is 217 on admission. He has a history of gastroparesis, chronic pain secondary to back problems is managed at [facility] pain clinic. Takes 5 mg of oxycodone 4 times a day. He states that on the days that he is not drinking he takes oxycodone. But he states that he does consume all of his oxycodone prescription every month save a few pills. He is a vague historian in general. Reading through the records he reported to practitioner in the behavioral health clinic on 14 September that he had not had a drink for 2 months. There is a family practice note on 01 October that refers to him having been clean of alcohol for 6 months. With me he is vague about when he started drinking again, although he is alert and oriented x 3. He states that he has blood in his vomit and in his bowel movements. And he struggles with chronic abdominal pain as well. He states he has not had any large amount of blood in his vomit just small streaks. It looks like he had an EGD by Dr. Connelly in September 2022 and there was no evidence seen of esophageal varices at that time. The indication for this EGD was epigastric pain. He has been prescribed duloxetine and hydroxyzine for anxiety but he states that he is intolerant of these medications. They make his stomach hurt and he cannot take them.He has a chronically poor appetite. Looking back through the records his weight hovers around 65 kg. I have injuries dating back to February 2024. He is an everyday smoker of both cannabis and tobacco. He denies the need for nicotine replacement while he was here in the hospital. He is unemployed, disabled secondary to back pain. He lives with his mother and his son. HOSPITAL COURSE Hospital Course: At the time of admission patient was an unreliable historian but expressed desire to stop drinking. I was unable to get a true answer as to how long he had resumed his alcohol consumption and exactly how much he drinks per day. His reported CIWA score was 20 and he qualified for admission to the ICU.. It was presumed that his length of stay would be about 3 days in order to get through acute alcohol withdrawal and then he would be given recovery resources. Appropriate orders were written and patient was transferred to the intensive care unit. On hospital day 2 he met with the renal social worker and declined the need for recovery resources. He had been given 150 mg dose of Librium at about 2200 and 2 additional doses at 6-hour intervals. He had required no IV Ativan after admission from the emergency department. He ate 100% of his breakfast and lunch and was discharged with a CIWA score of 2. This patient stated previously declined need for recovery resources. Due to his use of alcohol and oxycodone I am not willing to discharge him with a Librium prescription. I feel that it is not safe. I have encouraged him to return for worsening withdrawal symptoms. I have encouraged him to stop his consumption of alcohol. And I have encouraged him to follow-up on community resources as provided by our social workers. ALLERGIES Allergies Allergy/AdvReac Type Severity Reaction Status Date / Time amoxicillin (Amoxicillin) Allergy Intermediate Rash Verified 08/12/24 10:13 codeine (Codeine) Allergy Intermediate Rash Verified 08/12/24 10:13 Penicillins Allergy Intermediate Rash Verified 08/12/24 10:13 erythromycin base AdvReac Unknown Nausea Verified 08/12/24 10:13 indomethacin AdvReac Unknown Emesis Verified 08/12/24 10:13 gabapentin AdvReac loss of Verified 08/12/24 10:13 bladder control, numbness, tingling in hands and fee MEDICATIONS Ambulatory Orders Medication Instructions Recorded Confirmed oxycodone-acetaminophen 5 mg-325 1 tab PO Q6H PRN pain 04/07/24 10/25/24 mg tablet (Percocet) ondansetron 4 mg disintegrating 4 mg PO Q8H PRN nausea and 10/01/24 10/25/24 tablet vomiting #90 tabs pantoprazole 40 mg tablet,delayed 40 mg PO QDAY GERD # 90 tabs 10/01/24 10/25/24 release hydroxyzine HCl 25 mg tablet 25 mg PO PRN PRN anxiety, panic, 10/25/24 10/25/24 or insomnia PHYSICAL EXAM AT DISCHARGE Vital Signs: Vital Signs x48h Pulse Resp BP Pulse Ox 10/25/24 13:40 89 17 133/76 H 98 General Appearance: positive No acute distress and Alert Eyes Bilateral: positive Normal inspection, PERRL and Conjunctivae nml ENT: positive ENT inspection nml Neck: positive Nml inspection Respiratory: positive No respiratory distress and Breath sounds nml Cardiovascular: positive Regular rate & rhythm Abdomen: positive Non-tender Back: positive Nml inspection Skin: positive Color nml Extremities: positive Non-tender and No pedal edema Neurologic/Psychiatric: positive Oriented x3 and Other (No tremors) LABS 10/25/24 04:38 10/25/24 04:38 FOLLOW UP Follow Up: PCP 7 to 10 days.He has an appointment booked for 11/09/2024. Behavioral health, last visit was 08/12/2024 and the stated plan was to return to clinic in 3 to 4 weeks. TIME SPENT Time Spent in Discharge (Minutes): 40 Discharge Plan Discharge Patient Disposition: 01 Home, Self Care Condition: Good Prescriptions: Continued hydroxyzine HCl 25 mg tablet 25 mg PO PRN PRN (Reason: anxiety, panic, or insomnia) oxycodone-acetaminophen [Percocet] 5-325 mg tablet 1 tab PO Q6H PRN (Reason: pain) pantoprazole 40 mg tablet,delayed release (DR/EC) 40 mg PO QDAY Qty: 90 1RF ondansetron 4 mg tablet,disintegrating 4 mg PO Q8H PRN (Reason: nausea and vomiting) Qty: 90 0RF Activity Restrictions: No Restrictions Diet: Regular Health Concerns: You came into the hospital stating that she wanted to stop drinking. You were admitted overnight and the nurses observed your withdrawal symptoms. You did not have any significant withdrawal symptoms. Although this is different from the information you told me last night this morning you told me that that you had stopped drinking from about 14 September until about a week ago. Last night I understood that you had not had a drink for 2 months on September 14. So I am very unclear as to your history with regards to alcohol consumption. I think it is reasonable to think at this point that you will not physiologically withdraw from alcohol. You have been seen by social work and they have given you resources for recovery. At this point you have refused our help with getting into treatment. We are discharging you home. You can continue all of your home medications. This includes your oxycodone. We do not recommend that you drink with oxycodone. Reasons to return to the hospital are hallucinations, uncontrollable shaking nausea and vomiting that you cannot stop.. Print Language: Macedonian Patient Instructions: Alcohol Withdrawal: What to Expect Stand Alone Forms: PCP List
[2024-10-25 13:41] VITALS: BP 133/76; O2SAT 98
== END 2024-10-25 13:45 | disposition home or self-care (01) | DRG 897 ==
LOC: ED 19:50 → ICU 21:21
PROVIDERS: ADMIT Physician Assistant Medical; ATTEND Physician Assistant Medical
DX: Y90.7 Blood alcohol level of 200-239 mg/100 ml; H02.66 Xanthelasma of left eye, unspecified eyelid; R11.0 Nausea; R03.0 Elevated blood-pressure reading, without diagnosis of hypertension; E78.5 Hyperlipidemia, unspecified; F17.210 Nicotine dependence, cigarettes, uncomplicated; F41.9 Anxiety disorder, unspecified; F10.139 Alcohol abuse with withdrawal, unspecified; K92.1 Melena; H02.63 Xanthelasma of right eye, unspecified eyelid; E87.5 Hyperkalemia; K92.0 Hematemesis; R45.851 Suicidal ideations; Z79.891 Long term (current) use of opiate analgesic; G89.4 Chronic pain syndrome